=== PATIENT | female | born 1960 | race Caucasian/White ===

== ENCOUNTER 2024-04-05 06:01 | Inpatient (IN) | payer BC, SELFPAY ==
[2024-04-05] VITALS (14 sets, daily range): BP systolic 124–155; BP diastolic 62–93; PULSE 88–113; RESP 14–20; TEMP 36.1–37.1; O2SAT 95–98; BMI 29.2
--- NOTE | ~2024-04-05 | XR_ITS ---
EXAMINATION: XR CHEST CLINICAL INFORMATION: ng tube placement COMPARISON: None available. TECHNIQUE: Frontal view of the chest was obtained. FINDINGS: There is an enteric tube coursing over the expected region of the esophagus. It crosses the diaphragm. The tip is collimated from the [id number]. The heart is normal in size. There is calcific atherosclerotic disease of the aorta. Both lungs are clear. No pleural effusion. No pneumothorax. No acute osseous abnormality. XR/XR chest 1V IMPRESSION: There is an enteric tube coursing over the expected region of the esophagus. It crosses the diaphragm. The tip is collimated from the [id number]-eu-[id number]. No acute cardiopulmonary disease. Electronically signed by: De Peña DO 04/05/2024 02:08 PM SHANA GREGORY
--- NOTE | ~2024-04-05 | CT_ITS ---
EXAMINATION: CT ABDOMEN AND PELVIS WITHOUT CONTRAST CLINICAL INFORMATION: Abdominal pain, vomiting and leukocytosis. COMPARISON: None available. TECHNIQUE: Multidetector volumetric imaging was performed from the superior aspect of the liver through the pubic symphysis. Sagittal and coronal reformatted images were obtained on the technologist's workstation. This CT examination was performed using dose optimization techniques as appropriate, variously including the following: *Automated exposure control *Adjustment of mA and/or kV according to patient size (this includes techniques or standardized protocols for targeted exams where dose is matched to indication/reason for exam; i.e. extremities or head) *Use of iterative reconstruction technique DLP: 560 mGy-cm FINDINGS: Visualized lung bases are well aerated. Partially visualized 4 mm nodule of the right lower lobe (image 1/762, series 4). The liver is normal in size but demonstrates diffusely decreased attenuation. The gallbladder is normal in appearance. The pancreas, spleen and adrenal glands are unremarkable. Symmetrically sized kidneys. No renal calculi or hydronephrosis of either kidney. 7 mm hyperdense focus within the lower pole the left kidney is nonspecific but may represent a hyperdense cyst. There is a 6 mm cyst within the lower pole of the right kidney. Postsurgical changes of the stomach consistent with gastric bypass. Several dilated loops of proximal small bowel are noted within the left upper abdomen measuring up to approximately 5 cm. These loops are fluid-filled. There is associated mild haziness of the adjacent mesentery. Loops of small bowel decompressed in the region of the anastomosis. Distal loops of small bowel are decompressed. There is a normal stool burden throughout the colon. Normal appendix. Normal caliber abdominal aorta. No retroperitoneal lymphadenopathy. Small fat-containing umbilical hernia. The bladder is normal in appearance. The uterus is atrophic. Small amount of free pelvic fluid. No inguinal lymphadenopathy. Moderate diffuse degenerative changes of the spine. CT/CT abdomen pelvis wo IV con IMPRESSION: 1. Proximal small bowel obstruction with transition in the region of the distal anastomosis from gastric bypass. 2. Diffusely decreased liver attenuation suggesting hepatic steatosis. Correlation with liver enzymes recommended. 3. 7 mm hyperdense focus within the lower pole the left kidney is nonspecific but may represent a hyperdense cyst. This can be further evaluated with nonemergent renal ultrasound as clinically indicated. 4. Partially visualized 4 mm nodule of the right lower lobe. According to the UPDATED 2017 Fleischner Society recommendations, the advised follow-up imaging for solid nodules < 6 mm is: LOW RISK PATIENT: No routine follow-up. HIGH RISK PATIENT: Optional CT at 12 months. Electronically signed by: Shad Das MD 04/05/2024 09:23 AM EST
[2024-04-05 06:39] LABS: Basophils Percent Auto 0.2 % (0-2); Eosinophils Percent Auto 0.1 % (0-4); Hematocrit 43.3 % (37.0-47.0); Hemoglobin 14.6 g/dl (12.0-16.0); Imm Gran Abs Auto 0.11 X10*3/uL (0.00-0.03); Imm Gran Pct Auto 0.7 % (0.0-0.4); Lymphocytes Absolute Auto 0.9 X10*3/uL (1.2-4.9); Lymphocytes Percent Auto 6.2 % (20-40); MANUAL DIFF FLAG SCAN; Mean Corpuscular HGB Conc 33.7 g/dl (31.0-35.0); Mean Corpuscular Hemoglobin 28.3 pg (27.0-33.0); Mean Corpuscular Volume 84.1 fL (80.0-98.0); Mean Platelet Volume 8.7 fL (9.4-12.3); Monocytes Absolute Auto 0.3 X10*3/uL (0.1-1.2); Monocytes Percent Auto 2.3 % (2-11); Neutrophils Absolute Auto 13.5 x10*3/uL (2.0-8.3); Neutrophils Percent Auto 90.5 % (45-73); Platelet Count 531 X10*3/uL (160-400); Red Blood Count 5.15 X10*6/uL (4.20-5.50); Red Cell Distribution Width 14.6 % (11.0-16.0); SCAN SMEAR FLAG 1; White Blood Count 14.9 X10*3/uL (4.8-10.8)
[2024-04-05 06:56] LABS: Alanine Aminotransferase 12 U/L (0-31); Albumin Level 4.7 g/dL (3.5-5.0); Alkaline Phosphatase 121 U/L (39-117); Anion Gap 21 (12-20); Aspartate Amino Transferase 20 U/L (5-31); Bilirubin Total 0.8 mg/dL (0.0-1.0); Blood Urea Nitrogen 17 mg/dL (9-16); Calcium 9.8 mg/dL (8.4-10.2); Carbon Dioxide 18 mmol/L (22-29); Chloride 101 mmol/L (96-108); Estimated Glomerular Filt Rate > 60; Glucose Random 173 mg/dL (60-115); Lipase 29 U/L (8-78); Sodium 136 mmol/L (135-145); Total Protein 7.6 g/dL (6.5-8.0)
[2024-04-05 07:04] LABS: SLIDE REVIEW VERIFIED
--- NOTE | 2024-04-05 07:23 | ED_ITS ---
HPI - Abdominal Pain General Chief Complaint: Abdominal Pain Stated Complaint: vomiting Time Seen by Provider: 04/05/24 07:10 Source: patient Mode of arrival: ambulatory Limitations: no limitations History of Present Illness ED Provider: DR. Loja HPI narrative: 64-year-old female presented to the ED for evaluation of abdominal pain and vomiting for 1 day, no other sick contacts, no exposure to bad food, no recent travel, recent use of antibiotic, patient is complaining of diffuse upper abdominal pain with constant vomiting, decreased p.o. intake, patient small bowel night, not passing flatus for 1 day, no dysuria, no frequency urination, no hematuria , vaginal bleed or discharge. Past abdominal surgery significant for gastric bypass 20 years ago, history of . Related Data Allergies Allergy/AdvReac Type Severity Reaction Status Date / Time NSAIDS Allergy Unknown due to Uncoded 04/05/24 06:12 gastric bypass, can't take Review of Systems Review of Systems All other systems are reviewed and are negative Constitutional: Reports as per HPI and Reports no additional constitutional complaints Eyes: Reports as per HPI and Reports no additional eye complaints Reports system reviewed and no additional complaints, except as documented Cardiovascular: Reports as per HPI and Reports no additional cardiovascular complaints Respiratory: Reports as per HPI and Reports no additional respiratory complaints Gastrointestinal: Reports as per HPI and Reports no additional gastrointestinal complaints Genitourinary: Reports no additional female genitourinary complaints Musculoskeletal: Reports no additional musculoskeletal complaints Skin/Breast: Reports system reviewed and no additional complaints, except as docu Psychiatric: Reports no additional psychiatric complaints Endocrine: Reports no additional endocrine complaints Hematologic/Lymphatic: Reports no additional hematologic/lymphatic complaints Allergic/Immunologic: Reports no additional allergic/immunologic complaints Reports system reviewed and no additional complaints, except as documented and Reports Abnormal speech present [facility] Social History Social History Advance Directives: No Do you have a plan to hurt others: No Plan Physical Exam ED Vital Signs: Vital Signs - 24 hr 04/05/24 06:09 04/05/24 08:38 04/05/24 09:29 Temperature 98.2 F 98.7 F Pulse Rate 107 H 99 Respiratory Rate 16 14 18 Blood Pressure 155/93 H 131/72 Pulse Oximetry 98 98 Oxygen Delivery Method Room Air Room Air 04/05/24 11:23 Temperature 98.2 F Pulse Rate 93 Respiratory Rate 16 Blood Pressure 154/83 H Pulse Oximetry 95 Oxygen Delivery Method Room Air BMI result Body Mass Index 29.2 Vital signs have been reviewed and appear to be correct. Blood pressure elevated. Heart rate normal. Respiratory rate normal. Temperature normal. Oxygen saturation normal. Appearance: Alert. Oriented X3. No acute distress. Head: Normal external exam. Normocephalic. Atraumatic. No [place] signs noted. No raccoon eyes noted Eyes: PERRLA. EOMI. Conjunctiva and sclera normal. Eyelids normal. ENT: TM's Normal. Pharynx normal. Uvula midline. Moist mucous membranes. No trismus noted. No drooling noted. No muffled voice noted. Neck: Normal inspection. Neck supple. FROM. No adenopathy. Thyroid Normal. No meningeal signs. No neck mass noted. CVS: Normal heart rate and rhythm. Heart sound normal. No murmurs noted. Pulses normal throughout. Respiratory: No respiratory distress. Painless inspiration. Breath sounds normal. No wheezes/rales/rhonchi noted. Chest nontender. No accessory muscle usage noted or decreased air movement noted. Abdomen: Soft , upper abdominal tenderness, no rebound tenderness, No guarding.Bowel sounds normal in all 4 quadrants. No distention noted. No organomegaly noted. No visible injury noted. Back: No CVA tenderness. Full range of motion noted. Skin: Skin warm and dry. Normal skin color. Normal skin turgor. No rashes/lesions/lacerations noted. Extremities: No lower extremity edema. Extremities exhibit normal range of motion. Extremities nontender. Neuro: Oriented X 3. Cranial nerve exam: II-XII are grossly intact No motor deficit. No sensory deficit. Reflexes normal. Course Reevaluation(s) Reevaluation #1: this is a 64-year-old female s/p gastric bypass 20 years ago laparoscopically presented today with a small-bowel obstruction, abdominal pain, nausea and vomiting. Patient has NG tube placed in the emergency department with suction of gastric contents about 400-600 cc, case discussed with Dr. Hannah who will admit the patient and take the patient for exploratory laparoscopy. Time: 11:44 Medical Decision Making Differential Diagnosis Differential Diagnoses: The differential diagnosis associated with the presentation includes ( gastritis, gastroenteritis, food poisoning, acute appendicitis, colitis, diverticulitis, small-bowel obstruction, electrolyte derangement, dehydration, severe anemia.) Admission/Observation Consideration of admission/observation: Escalation of care including admission/observation considered Consult Healthcare Provider Management of the patient was discussed with: [employer] Education Teacher ( Dr. Hannah) Lab Data MDM Lab Attestation statement: I reviewed the patient's lab results. 04/05/24 06:34 04/05/24 06:34 Labs: Lab Results 04/05/24 04/05/24 04/05/24 Range/Units 06:34 07:56 10:59 WBC 14.9 H (4.8-10.8) X10*3/uL RBC 5.15 (4.20-5.50) X10*6/uL Hgb 14.6 (12.0-16.0) g/dl Hct 43.3 (37.0-47.0) % MCV 84.1 (80.0-98.0) fL MCH 28.3 (27.0-33.0) pg MCHC 33.7 (31.0-35.0) g/dl RDW 14.6 (11.0-16.0) % Plt Count 531 H (160-400) X10*3/uL MPV 8.7 L (9.4-12.3) fL Immature Gran % (Auto) 0.7 H (0.0-0.4) % Neut % (Auto) 90.5 H (45-73) % Lymph % (Auto) 6.2 L (20-40) % [place] % (Auto) 2.3 (2-11) % Eos % (Auto) 0.1 (0-4) % Baso % (Auto) 0.2 (0-2) % Lymph # (Auto) 0.9 L (1.2-4.9) X10*3/uL [place] # (Auto) 0.3 (0.1-1.2) X10*3/uL Eos # (Auto) 0.0 (0.0-0.4) X10*3/uL Baso # (Auto) 0.0 (0.0-0.2) X10*3/uL Abs Immat Gran (auto) 0.11 H (0.00-0.03) X10*3/uL Absolute Neuts (auto) 13.5 H (2.0-8.3) x10*3/uL Absolute Nucleated RBC 0.000 (0.0-0.012) X10*3/uL Nucleated RBC % (auto) 0.0 (0.0-0.2) /100WBC Smear Tech's Comments VERIFIED Sodium 136 (135-145) mmol/L Potassium 4.0 (3.3-5.1) mmol/L Chloride 101 (96-108) mmol/L Carbon Dioxide 18 L (22-29) mmol/L Anion Gap 21 H (12-20) BUN 17 H (9-16) mg/dL Creatinine 0.89 (0.5-1.4) mg/dL Estim Creat Clear Calc 61.0 Estimated GFR > 60 Random Glucose 173 H (60-115) mg/dL Lactic Acid 2.2 H* (0.5-2.0) mmol/L Lactic Acid F/U @ 2Hr 1.5 (0.5-2.0) mmol/L Calcium 9.8 (8.4-10.2) mg/dL Total Bilirubin 0.8 (0.0-1.0) mg/dL AST 20 (5-31) U/L ALT 12 (0-31) U/L Alkaline Phosphatase 121 H (39-117) U/L Total Protein 7.6 (6.5-8.0) g/dL Albumin 4.7 (3.5-5.0) g/dL Lipase 29 (8-78) U/L Independent Interpretation I performed an independent interpretation of an: CT Scan (1. Proximal small bowel obstruction with transition in the region of the distal anastomosis from gastric bypass. 2. Diffusely decreased liver attenuation suggesting hepatic steatosis. Correlation with liver enzymes recommended. 3. 7 mm hyperdense focus within the lower pole the left kidney is ) Radiology Impression Discussion of test interpretation with radiology: I have reviewed the radiologist's reading. Medications Administered Discontinued Medications Generic Name Dose Route Start Last Admin Trade Name Freq PRN Reason Stop Dose Admin Al Hydroxide/Mg Hydroxide 30 ml 04/05/24 07:22 04/05/24 07:40 Magnesium Hydrox/Alum Hydrox 30 Ml Oral.Susp PO 04/05/24 07:23 30 ml ONCE ONE Administration Famotidine 20 mg 04/05/24 07:22 04/05/24 07:40 Famotidine/Pf 20 Mg/2 Ml Vial IVPUSH 04/05/24 07:23 20 mg ONCE ONE Administration Sodium Chloride 1,000 mls @ 999 mls/hr 04/05/24 07:22 04/05/24 10:43 Ns IV 04/05/24 08:22 Infused .Q1H1M ONE Infusion Morphine Sulfate 2 mg 04/05/24 07:22 04/05/24 07:40 Morphine Sulfate 2 Mg/Ml Cartridge IVPUSH 04/05/24 07:23 2 mg ONCE ONE Administration Protocol Morphine Sulfate 2 mg 04/05/24 09:07 04/05/24 09:29 Morphine Sulfate 2 Mg/Ml Cartridge IVPUSH 04/05/24 09:08 2 mg ONCE ONE Administration Protocol Ondansetron HCl 4 mg 04/05/24 07:22 04/05/24 07:40 Ondansetron Hcl 4 Mg/2 Ml Vial IVPUSH 04/05/24 07:23 4 mg ONCE ONE Administration Discharge Plan Discharge Clinical Impression: Small bowel obstruction, Abdominal pain Patient Disposition: Admitted As Inpatient Print Language: Tajik
[2024-04-05] MEDS: ondansetron HCL 4 MG/2 ML VIAL IVPUSH (07:40)
[2024-04-05] MEDS: Famotidine/PF 20 MG/2 ML VIAL IVPUSH (07:40)
[2024-04-05] MEDS: Magnesium Hydrox/Alum Hydrox 30 ML ORAL.SUSP PO (07:40)
[2024-04-05] MEDS: 0.9 % Sodium Chloride 1,000 ML 999 ML IV (07:40)
[2024-04-05] MEDS: Morphine Sulfate 2 MG/ML CARTRIDGE IVPUSH ×2 (07:40→09:29)
[2024-04-05 08:39] LABS: Lactic Acid 2.2 mmol/L (0.5-2.0)
[2024-04-05 10:00] LABS: Reflex Lactate? Lactic Acid Added
--- NOTE | 2024-04-05 10:47 | PC.NURSE ---
patient continues to endorse abdominal pain, 16fr NG tube placed w/ intermittent suction in place. resting quietly in room 20IV left AC, reports some improvement in nausea
[2024-04-05 11:26] LABS: ~Lactic Acid-LAB USE ONLY 1.5 mmol/L (0.5-2.0)
--- NOTE | 2024-04-05 11:44 | PC.NURSE ---
NG tube w/ brown fluids draining approx 100mL. family at bedside, no obvious signs/symptoms of distress noted.
--- NOTE | 2024-04-05 12:39 | P.CONAN_ITS ---
[facility], [facility] Active Problems Active Problems: All Active Problems Abdominal pain (Acute) Small bowel obstruction (Acute) Family History Family history of problems with anesthesia: No Surgical History History of Problems with Anesthesia: No Social History Social History Advance Directives: No Do you have a plan to hurt others: No Plan Meds Allergies Allergy/AdvReac Type Severity Reaction Status Date / Time NSAIDS Allergy Unknown due to Uncoded 04/05/24 06:12 gastric bypass, can't take Home Medications ?Medication ?Instructions ?Recorded ?Confirmed ?Last Taken ?Type albuterol sulfate 90 mcg/actuation 2 puff inhalation Q4-6H PRN dyspnea 04/05/24 04/05/24 Unknown History aerosol inhaler bupropion HCl 200 mg tablet,12 hr 200 mg PO BID 04/05/24 04/05/24 Unknown History sustained-release cevimeline 30 mg capsule 1 cap PO TID 04/05/24 04/05/24 Unknown History citalopram 20 mg tablet 20 mg PO DAILY 04/05/24 04/05/24 Unknown History clonazepam 0.5 mg tablet 0.5 mg PO TID 04/05/24 04/05/24 Unknown History levothyroxine 150 mcg tablet 150 mcg PO MOTUWETHFRSA 04/05/24 04/05/24 Unknown History (Synthroid) levothyroxine 150 mcg tablet 300 mcg PO PEREZ 04/05/24 04/05/24 Unknown History (Synthroid) semaglutide (weight loss) 2.4 2.4 mg subcut MO 04/05/24 04/05/24 03/30/24 History mg/0.75 mL subcutaneous pen injector (Wegovy) tramadol 50 mg tablet 50 mg PO BEDTIME PRN sleep/pain 04/05/24 04/05/24 Unknown History Exam Height,Weight and Vital Signs: Height 5 ft 3 in Weight 74.843 kg Last Vital Signs Temp 98.2 F 04/05/24 11:23 Pulse 93 04/05/24 11:23 Resp 16 04/05/24 11:23 BP 154/83 H 04/05/24 11:23 Pulse Ox 95 04/05/24 11:23 O2 Del Method Room Air 04/05/24 11:23 Pertinent Lab Results Pertinent Lab Results: Laboratory Tests 04/05/24 04/05/24 04/05/24 06:34 07:56 10:59 WBC 14.9 H RBC 5.15 Hgb 14.6 Hct 43.3 MCV 84.1 MCH 28.3 MCHC 33.7 RDW 14.6 Plt Count 531 H MPV 8.7 L Immature Gran % (Auto) 0.7 H Neut % (Auto) 90.5 H Lymph % (Auto) 6.2 L Chambers % (Auto) 2.3 Eos % (Auto) 0.1 Baso % (Auto) 0.2 Lymph # (Auto) 0.9 L [place] # (Auto) 0.3 Eos # (Auto) 0.0 Baso # (Auto) 0.0 Abs Immat Gran (auto) 0.11 H Absolute Neuts (auto) 13.5 H Absolute Nucleated RBC 0.000 Nucleated RBC % (auto) 0.0 Smear Tech's Comments VERIFIED Sodium 136 Potassium 4.0 Chloride 101 Carbon Dioxide 18 L Anion Gap 21 H BUN 17 H Creatinine 0.89 Estim Creat Clear Calc 61.0 Estimated GFR > 60 Random Glucose 173 H Lactic Acid 2.2 H* Lactic Acid F/U @ 2Hr 1.5 Calcium 9.8 Total Bilirubin 0.8 AST 20 ALT 12 Alkaline Phosphatase 121 H Total Protein 7.6 Albumin 4.7 Lipase 29 Airway Mallampati Class: II TM Dist: >3cm Neck ROM: Full Assessment and Plan Assessment Anesthesia Assessment: Anesthesia Plan Discussed and Chart Reviewed Final Anesthetic Review Family History of Problems with Anesthesia: No History of Problems with Anesthesia: No NPO: Yes ASA Class: III and Emergency Final Preanesthetic Review: No Changes in Pt Med Stat, Meds/Allgs Chart Reviewed, Consent Obtained/Reviewed and Anes Risks/Benef Reviewed Patient Risk: Intermediate Procedure Risk: Intermediate Anesthetic Plan Anesthetic Plan: GA Disposition: Standard PACU
--- NOTE | 2024-04-05 12:44 | PM.HPGS ---
History of Present Illness History of Present Illness Date of Service: 04/05/24 Chief complaint: Small bowel obstruction Narrative: Sonia Myles is a 64 year old female who presented in the ER with a 30-hour onset of vomiting and mid-epigastric/LUQ abdominal pain. The patient has a history of laparoscopic Cat-en-Y gastric bypass about [address] Kelley at [facility]. The symptoms began after a meal with lasagna. She vomited initially the food and since then she is dry heaving and spitting small amounts of bilious material. Never had similar symptoms in the past. Has been on Wegovy last few months and she claims she lost 30 lbs. Review of Systems Constitutional: Constitutional: Reports weight loss (on Wegovy) Eyes: Eyes: Reports no additional eye complaints ENT: Reports Normal hearing present Cardiovascular: Cardiovascular: Reports no additional cardiovascular complaints Respiratory: Respiratory: Reports no additional respiratory complaints Gastrointestinal: Gastrointestinal: Reports abdominal pain (mid-epigastric), Reports change in bowel habits, Reports nausea and Reports vomiting Genitourinary: Genitourinary: Reports no additional female genitourinary complaints Musculoskeletal: Musculoskeletal: Reports no additional musculoskeletal complaints Neurologic: Reports system reviewed and no additional complaints, except as documented and Reports Normal hearing present Psychiatric: Psychiatric: Reports no additional psychiatric complaints Endocrine: Endocrine: Reports no additional endocrine complaints Hematologic/Lymphatic: Hematologic/Lymphatic: Reports no additional hematologic/lymphatic complaints Allergic/Immunologic: Allergic/Immunologic: Reports no additional allergic/immunologic complaints PMFSH Past Medical History Medical History (Updated 04/05/24 @ 12:49 by Tevin Hannah MD) DJD (degenerative joint disease) Anxiety Depression Surgical History Surgical History (Updated 04/05/24 @ 12:49 by Tevin Hannah MD) History of knee replacement History of History of gastric bypass Social History Social History Advance Directives: No Do you have a plan to hurt others: No Plan Meds Allergies Allergy/AdvReac Type Severity Reaction Status Date / Time NSAIDS Allergy Unknown due to Uncoded 04/05/24 06:12 gastric bypass, can't take Active Medications: Current Medications Fentanyl (Fentanyl Citrate/Pf 100 Mcg/2 Ml Vial) 50 mcg IVPUSH Q5M PRN PRN Reason: Pain, Moderate to Severe (Pain Scale 4-10) Stop: 04/05/24 18:40 Naloxone HCl (Naloxone Hcl 0.4 Mg/Ml Vial) 0.04 mg IVPUSH Q5M PRN PRN Reason: Excessive sedation or RR < 8 Ondansetron HCl (Ondansetron Hcl 4 Mg/2 Ml Vial) 4 mg IVPUSH ONCE PRN PRN Reason: Nausea and Vomiting Stop: 04/05/24 18:40 Home Medications ?Medication ?Instructions ?Recorded ?Confirmed ?Last Taken ?Type albuterol sulfate 90 mcg/actuation 2 puff inhalation Q4-6H PRN dyspnea 04/05/24 04/05/24 Unknown History aerosol inhaler bupropion HCl 200 mg tablet,12 hr 200 mg PO BID 04/05/24 04/05/24 Unknown History sustained-release cevimeline 30 mg capsule 1 cap PO TID 04/05/24 04/05/24 Unknown History citalopram 20 mg tablet 20 mg PO DAILY 04/05/24 04/05/24 Unknown History clonazepam 0.5 mg tablet 0.5 mg PO DAILY PRN Anxiety 04/05/24 04/05/24 Unknown History levothyroxine 150 mcg tablet 150 mcg PO MOTUWETHFRSA 04/05/24 04/05/24 Unknown History (Synthroid) levothyroxine 150 mcg tablet 300 mcg PO PEREZ 04/05/24 04/05/24 Unknown History (Synthroid) semaglutide (weight loss) 2.4 2.4 mg subcut MO 04/05/24 03/30/24 History mg/0.75 mL subcutaneous pen injector (Wegovy) tramadol 50 mg tablet 50 mg PO BEDTIME PRN sleep/pain 04/05/24 04/05/24 Unknown History Physical Exam Vital Signs: Vital Signs: Last Vital Signs Temp 98.2 F 04/05/24 11:23 Pulse 93 04/05/24 11:23 Resp 16 04/05/24 11:23 BP 154/83 H 04/05/24 11:23 Pulse Ox 95 04/05/24 11:23 O2 Del Method Room Air 04/05/24 11:23 BMI result Body Mass Index 29.2 GI: Inspection: Yes normal to inspection, Yes incision (well healed) and Yes obesity Palpation (GI): Soft to palpation and Tenderness to palpation present (GI) (mid-epigastric and LUQ tenderness) in the epigastrum and in the LUQ Percussion: Yes normal to percussion Rectal Exam - Female: deferred Neuro: Cranial nerves: Yes Normal hearing present Extrem: Right lower extremity: normal to inspection (knee surgery) Left lower extremity: normal to inspection (knee surgery) Results Results Labs: Short CBC 04/05/24 Range/Units 06:34 WBC 14.9 H (4.8-10.8) X10*3/uL Hgb 14.6 (12.0-16.0) g/dl Hct 43.3 (37.0-47.0) % Plt Count 531 H (160-400) X10*3/uL BMP 04/05/24 06:34 Sodium 136 Potassium 4.0 Chloride 101 Carbon Dioxide 18 L BUN 17 H Creatinine 0.89 Calcium 9.8 Liver Function 04/05/24 Range/Units 06:34 Total Bilirubin 0.8 (0.0-1.0) mg/dL AST 20 (5-31) U/L ALT 12 (0-31) U/L Alkaline Phosphatase 121 H (39-117) U/L Albumin 4.7 (3.5-5.0) g/dL CT scan - pelvis: report reviewed and image reviewed (SBO at the jejuno-jejunostomy) Assessment and Plan (1) Small bowel obstruction: Status: Acute Plan CT scan is suggestive of a small bowel obstruction near the JJ anastomosis. The possibility of internal hernia, adhesions or intussusception needs to be ruled out to avoid possible bowel ischemia and necrosis. Risks of , bleeding, infection, recurrent bowel obstructions and blood clots were discussed with the patient. The patient understands and is in agreement with the plan. Total time managing care of this patient today: 45 minutes. Quality Stroke Does the patient have a stroke diagnosis?: No VTE Prior VTE?: No VTE Risk Level:: Surgical - moderate VTE Device Contraindication: N/A - Device Ordered VTE Drug Contraindication: Treatment Not Indicated Procedures Date of Service Date of Service: 04/05/24
--- NOTE | 2024-04-05 12:55 | P.BOP_ITS ---
Brief Operative Note Date of Service: 04/05/24 Pre-op diagnosis: Small bowel obstruction Post-op diagnosis: same (Internal small bowel volvulus, Necrotic small bowel, small bowel perforation, small bowel obstruction) Procedure: INDICATION: The patient is a 64 year old female who presented in the ER with a 30-hour onset of vomiting and mid-epigastric/LUQ abdominal pain. The patient has a history of laparoscopic Cat-en-Y gastric bypass about [address] Kelley at [facility]. The symptoms began after a meal with lasagna. She vomited initially the food and since then she is dry heaving and spitting small amounts of bilious material. Never had similar symptoms in the past. Has been on Wegovy last few months and she claims she lost [address] scan is suggestive of a small bowel obstruction near the JJ anastomosis. The possibility of internal hernia, adhesions or intussusception needs to be ruled out to avoid possible bowel ischemia and necrosis. Risks of , bleeding, infection, recurrent bowel obstructions and blood clots were discussed with the patient. The patient understands and is in agreement with the plan. PROCEDURE: Diagnostic laparoscopy, exploratory laparotomy, intraoperative endoscopy, repair of small bowel perforation, lysis of adhesions, release of internal volvulus, small bowel resection and creation of 2 small bowel anastomoses, endoscopic-assisted NG tube re-positioning DESCRIPTION OF PROCEDURE: After informed consent was obtained from the patient, the patient was given preoperative antibiotics, and was transferred to the operating room. After successful induction of general anesthesia, a benavidez catheter and pneumatic compression devices were placed on both lower extremities. The patient was then prepped and draped in the usual sterile manner, and abdominal access was established to the left of the umbilicus in order to be able to incorporate it in a midline incision in case we would have to convert to an open surgery. A 12 mm blunt port was inserted, and the abdomen was insufflated with CO2 to a pressure of 15 mmHg. The abdomen was inspected. It was evident that there a long segment of small intestine that was extremely distended as well as hemorrhagic and necrotic. At that point, the abdomen was deflated and a midline incision was made from about 5cm distal to the xyphoid process to 3cm inferior to the umbilicus. A large amount of hemorrhagic fluid was evacuated. Once the necrotic-appearing small bowel segment was delivered, it appeard to be involve a significant portion of the Cat limb from about 20cm distally to the GJ anastomosis all the way to the JJ anastomosis. There was a 1cm bowel perforation to the Cat limb just proximal to the necrotic segment. The Cat limb proximal to the perforation appeared viable externally. In order to preserve as much Cat limb length as possible the perforation was closed with 3 interrupted 3.0 Silk sutures along the long axis of the intestine to prevent stricture. Prior to that the suction was used to decompress the necrotic segment of the Cat limb. Attention was then drawn to the necrotic segment. There was a single adhesive band originating from the transverse colon to the anastomosis creating an int ernal space around which the Cat limb had volvulized. The adhesive band was cut with the cautery. That allowed me to release the small bowel and put it in the normal position. This allowed me to confirm the anatomy: The biliopancreatic limb was traced back to the ligament of Treitz and it was about 50cm long. This was marked with 3.0 Silk suture. The common channel was traced back to the ileocecal valve. It was normal and viable without any pathology or adhesions. This was measured and it was approxiately 300cm long. At that point the Cat limb was clamped at the most proximal part of the n ecrotic Cat limb and endoscopy was performed to assess the GJ anastomosis and the most proximal Cat limb. There was some retained food pieces in the pouch which appeared viable. The endoscope was advanced to the proximal Cat limb. The scope was advanced all the way to the bowel clamp fairly easily. The mucosa was somewhat congested but it was viable. A leak test was performed to test the repair of the small bowel perforation by submerging it under saline and no air leak was noted. The bowel clamp was released and the endoscope was advanced all the way to the JJ anastomosis. Unfortunately the mucosa of the entire segment was necrotic and therefore it had to be resected. The scope was withdrawn to the esophagus. The Cat limb was resected with an Endo PAULA 60 white load, 2 cm proximally from the beginning of the necrotic segment and the area where the bowel perforation was repair, was preserved as there was very limited length of proximal Cat limb left to use for the anastomosis and it was also quite fixed without ability ot be mobilized. The biliopancreatic limb was divided just proximally from the JJ anastomosis preserving as much length as possible and the common channel was a lso divided just distally from the JJ anastomosis with two Endo PAULA 60 white loads. The small bowel mesenteric segment was divided with several Endo PAULA 45 woody loads as close to the bowel wall as possible to preserve the mesentery and prevent ischemia to the proxima Cat limb. Once the small bowel resection was completed an end-to-end anastomosis was made between the proximal Cat limb and the common channel. After enterotomies were made the anastomosis was created with an Endo PAULA 60 white load and the enterotomy was closed with another Endo PAULA 60 white load after appropriate alignment with three interrupted 3.0 Silk sutures. The small bowel mesenteric defect was closed with several interrupted 3.0 Silk sutures. The anastomosis was viable and patent. The new jejuno-jejunostomy was created about 120cm from the GJ anastomosis and a new Cat limb was created. This was a side-to-end anastomosis that was also created with an Endo PAULA 60 white load and the enterotomy was closed with an other Endo PAULA 60 white load after appropriate alignment with four interrupted 3.0 Silk sutures. The small bowel mesenteric defect was closed with several interrupted 3.0 Silk sutures. The anastomosis was viable and patent. The Cat limb was then clamped distally from the proximal new anastomosis and another endoscopy was performed. The proximal Cat limb appeared viable and I was able to pass the anastomosis easily and there was no narrowing. At that point I grasped the tip of the NG tube with an endoscopic forceps and it was guided beyong the GJ anastomosis all the way distally to the proximal small bowel anastomosis and it was secured there. Then after all fluid and air were suctioned and the stomach was fully decompressed, the scope was withdrawn and secured in the mid esophagus. At that point both anastomoses were viable and they were situating well. The abdomen was washed with warm saline and all fluid was suctioned out. The fascia was closed with several interrupted (at the corners of the incision and near the umbilicus) and [id number] sutures for the middle segment of the incision using #1 Ethibond sutures. Then 30cc Ropivacaine plain with 10 mg of Dexamethasone were used to infiltrate the fascial closure as well as all skin incisions. The skin was closed with kori. The patient was extubated and was transferred in stable condition to the recovery room for further care. I was present and performed all turner parts of the procedure. There were no one to assist with this case and the [employer] Shearing Machine Operator was the travel assistant. Mynor Hannah MD, PhD, FACS Surgeon: Tevin Hannah MD Anesthesia: GETA, local and other (TAP block) Was an Stenotype Machine Operator used for this Procedure?: No Estimated blood loss (mL): 10 IV fluids (mL): 3,000 Urine output (mL): 50 Pathology: other (Small bowel (Cat limb)) Condition: stable Disposition: PACU
--- NOTE | 2024-04-05 13:00 | PC.NURSE ---
Reports given to [facility], pt transported to OR with belongings.
--- NOTE | 2024-04-05 13:01 | P.PNGS_ITS ---
Subjective Subjective Date of Service: 04/06/24 Interval history: Feels well. Mild incisional pain. The pain she had prior to surgery has resolved. Physical Exam 2 Vital Signs: Vital Signs: Last Vital Signs Temp 98.2 F 04/05/24 11:23 Pulse 93 04/05/24 11:23 Resp 16 04/05/24 11:23 BP 154/83 H 04/05/24 11:23 Pulse Ox 95 04/05/24 11:23 O2 Del Method Room Air 04/05/24 11:23 BMI result Body Mass Index 29.2 GI: Inspection: Yes normal to inspection, Yes incision (clean, dry and intact) and Yes obesity Palpation (GI): Soft to palpation Extrem: Right lower extremity: normal to inspection (no calf tenderness) L eft lower extremity: normal to inspection (no calf tenderness) Objective Data Active Medications Fentanyl (Fentanyl Citrate/Pf 100 Mcg/2 Ml Vial) 50 mcg IVPUSH Q5M PRN PRN Reason: Pain, Moderate to Severe (Pain Scale 4-10) Stop: 04/05/24 18:40 Cefazolin Sodium/Dextrose (Ancef) 2 gm in 50 mls @ 100 mls/hr IV PREOP ONE Stop: 04/05/24 13:11 Naloxone HCl (Naloxone Hcl 0.4 Mg/Ml Vial) 0.04 mg IVPUSH Q5M PRN PRN Reason: Excessive sedation or RR < 8 Ondansetron HCl (Ondansetron Hcl 4 Mg/2 Ml Vial) 4 mg IVPUSH ONCE PRN PRN Reason: Nausea and Vomiting Stop: 04/05/24 18:40 Labs 04/06/24 05:01 04/06/24 05:01 Labs: Laboratory Results - last 24 hr 04/05/24 04/05/24 04/05/24 06:34 07:56 10:59 MCV 84.1 MCH 28.3 MCHC 33.7 RDW 14.6 Plt Count 531 H MPV 8.7 L Immature Gran % (Auto) 0.7 H Neut % (Auto) 90.5 H Lymph % (Auto) 6.2 L [place] % (Auto) 2.3 Eos % (Auto) 0.1 Baso % (Auto) 0.2 Lymph # (Auto) 0.9 L [place] # (Auto) 0.3 Eos # (Auto) 0.0 Baso # (Auto) 0.0 Abs Immat Gran (auto) 0.11 H Absolute Neuts (auto) 13.5 H Absolute Nucleated RBC 0.000 Nucleated RBC % (auto) 0.0 Smear Tech's Comments VERIFIED Anion Gap 21 H Estim Creat Clear Calc 61.0 Estimated GFR > 60 Random Glucose 173 H Lactic Acid 2.2 H* Lactic Acid F/U @ 2Hr 1.5 Calcium 9.8 Total Bilirubin 0.8 AST 20 ALT 12 Alkaline Phosphatase 121 H Total Protein 7.6 Albumin 4.7 Lipase 29 Procedures Date of Service Date of Service: 04/06/24 Progress Note: A&P Assessment and plan (1) Small bowel obstruction: Status: Acute (2) Small bowel volvulus: Status: Acute (3) Small bowel perforation: Status: Acute (4) 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: Status: Acute Assessment and Plan: 1. Continue NPO, NGT and IV fluids 2. Ambulation 3. Aggressive incentive spirometry 4. Repeat lactate level at 2pm today Time Spent With Patient Time: Total time managing care of this patient today ____ minutes. Quality Stroke Does the patient have a stroke diagnosis?: No VTE Prior VTE?: No VTE Risk Level:: Surgical - moderate VTE Device Contraindication: N/A - Device Ordered VTE Drug Contraindication: Treatment Not Indicated
[2024-04-05 16:35] LABS: Hematocrit 41.8 % (37.0-47.0); Hemoglobin 13.3 g/dl (12.0-16.0)
[2024-04-05] MEDS: Aprepitant 32 MG/4.4 ML VIAL IVPUSH (16:49)
[2024-04-05] MEDS: Pantoprazole Sodium 40 MG/10 ML VIAL IVPUSH (16:51)
[2024-04-05 17:04] LABS: Anion Gap 12 (12-20); Blood Urea Nitrogen 18 mg/dL (9-16); Calcium 7.6 mg/dL (8.4-10.2); Carbon Dioxide 22 mmol/L (22-29); Chloride 104 mmol/L (96-108); Creatinine Clr Calc Pharmacy 66.2; Estimated Glomerular Filt Rate > 60; Glucose Random 161 mg/dL (60-115); Magnesium 1.8 mg/dL (1.6-2.6); Phosphorus 5.9 mg/dL (2.7-4.5); Potassium 4.4 mmol/L (3.3-5.1); Sodium 134 mmol/L (135-145)
[2024-04-05 17:13] LABS: Lactic Acid 1.9 mmol/L (0.5-2.0)
--- NOTE | 2024-04-05 17:15 | PHA.MEDREC ---
Addendum entered by Jemal Martin RPh 04/05/24 17:35: Med rec was reviewed. Original Note: Pharmacy Consult ? Medication Reconciliation Pharmacy has completed the medication reconciliation. Spoke with patient to confirm medications. She is no longer taking eliquis (last had a week ago), celebrex, diazepam, gabapentin, naproxen, zofran, oxycodone, or pantorpazole. She confirmed her dosing for Synthroid (an extra tab on Saturday). She reports her current dose for Wegovy is 1.7 mg on , she had it last Saturday. She only takes one tab of her citalopram daily (not and 05/14). She only takes 1 tab of clonazepam prn and same with trazodone for sleep/pain. She has not taken any medications today or yesterday.
[2024-04-05] MEDS: Acetaminophen 1,000 MG/100 ML PIGGYBACK 16.7 MG IV (17:57)
[2024-04-05] MEDS: Levothyroxine Sodium 100 MCG/5 ML VIAL 75 MCG IVPUSH (17:57)
[2024-04-05] MEDS: Lactated Ringers 1,000 ML 175 ML IVCONT (17:57)
[2024-04-05 19:21] LABS: Lactate Dehydrogenase 179 U/L (122-220)
[2024-04-05] MEDS: HYDROmorphone HCl 0.5 MG/0.5 ML SYRINGE 0.25 MG IVPUSH (21:52)
[2024-04-05 22:08] LABS: Appearance Urine Clear; Color Urine Yellow; Glucose Urine UA Negative (Negative); Leukocyte Esterase Urine Negative (Negative); Nitrite Urine Negative (Negative); PH 5.5 (5.0-9.0); Specific Gravity - Urine >= 1.030 (1.005-1.025); UMIC TRIGGER UACC YES; Urine Blood Trace (Negative); Urine Ketones Negative (Negative); Urine Protein Trace mg/dL (Neg-Trace)
[2024-04-05 22:12] LABS: Bacteria Urine None Seen (None Seen); Hyaline Casts Urine 0-2 /LPF (0-2); Squamous Epithelial Cell Urine 0-2 /HPF (0-2); WBC Urine 0-5 /HPF (0-5)
[2024-04-05 22:57] LABS: Lactic Acid 1.4 mmol/L (0.5-2.0)
[2024-04-06] VITALS (13 sets, daily range): BP systolic 100–124; BP diastolic 55–65; PULSE 75–90; RESP 15–18; TEMP 36.1–36.7; O2SAT 93–100
[2024-04-06] MEDS: Acetaminophen 1,000 MG/100 ML PIGGYBACK 16.7 MG IV ×4 (00:07→17:56)
[2024-04-06] MEDS: 0.9 % Sodium Chloride Flush 3 ML SYRINGE IVFLUSH (00:11)
[2024-04-06] MEDS: ondansetron HCL 4 MG/2 ML VIAL IVPUSH ×3 (00:11→16:44)
[2024-04-06] MEDS: Lactated Ringers 1,000 ML 175 ML IVCONT ×4 (01:30→21:03)
[2024-04-06] MEDS: Piperacillin Sodium/Tazobactam 3.375 GM in 0.9 % Sodium Chloride 50 ML IV ×4 (02:05→19:33)
--- NOTE | 2024-04-06 04:24 | PC.NURSE ---
2099- 04-05-24, tiger text note sent to surgeon as per RN shift report that he wanted information on patient at that time, urine output, vital signs, labwork,etc... therefore, forwarded to Brielle Yip. Urine from benavidez at this time, 175ml, O2 sat level 96% on 2 liters N/C 97.4-88-20-137/62, cardiac rhythm SR, Incentive spirometer up to 1250, lactic value of 1.9, IVf, IV APAP, IVABX all as ordered. pain managed well, no N/v. NGT with just a scant amount blood tinged drainage to tubing. acknowledged to have read text. Will continue to monitor patient. Abdominal dressing with a small dry stain, no active drng.
[2024-04-06 05:32] LABS: MANUAL DIFF FLAG NO
[2024-04-06 05:37] LABS: Basophils Percent Auto 0.2 % (0-2); Hematocrit 35.7 % (37.0-47.0); Hemoglobin 11.8 g/dl (12.0-16.0); Imm Gran Abs Auto 0.06 X10*3/uL (0.00-0.03); Imm Gran Pct Auto 0.4 % (0.0-0.4); Lymphocytes Absolute Auto 0.7 X10*3/uL (1.2-4.9); Lymphocytes Percent Auto 3.9 % (20-40); Mean Corpuscular HGB Conc 33.1 g/dl (31.0-35.0); Mean Corpuscular Hemoglobin 28.4 pg (27.0-33.0); Mean Corpuscular Volume 85.8 fL (80.0-98.0); Monocytes Absolute Auto 1.5 X10*3/uL (0.1-1.2); Monocytes Percent Auto 8.7 % (2-11); Neutrophils Absolute Auto 14.8 x10*3/uL (2.0-8.3); Neutrophils Percent Auto 86.8 % (45-73); Platelet Count 397 X10*3/uL (160-400); Red Blood Count 4.16 X10*6/uL (4.20-5.50); Red Cell Distribution Width 14.9 % (11.0-16.0)
[2024-04-06 05:47] LABS: Lactic Acid 1.9 mmol/L (0.5-2.0)
[2024-04-06] MEDS: Levothyroxine Sodium 100 MCG/5 ML VIAL 75 MCG IVPUSH (05:51)
[2024-04-06] MEDS: Pantoprazole Sodium 40 MG/10 ML VIAL IVPUSH ×2 (05:51→16:44)
[2024-04-06 05:52] LABS: Anion Gap 16 (12-20); Blood Urea Nitrogen 15 mg/dL (9-16); Calcium 8.3 mg/dL (8.4-10.2); Carbon Dioxide 22 mmol/L (22-29); Chloride 103 mmol/L (96-108); Creatinine Clr Calc Pharmacy 77.6; Estimated Glomerular Filt Rate > 60; Glucose Random 149 mg/dL (60-115); Phosphorus 4.4 mg/dL (2.7-4.5); Potassium 4.5 mmol/L (3.3-5.1); Sodium 136 mmol/L (135-145)
[2024-04-06] MEDS: HYDROmorphone HCl 0.5 MG/0.5 ML SYRINGE 0.25 MG IVPUSH ×3 (05:52→13:24)
--- NOTE | 2024-04-06 09:12 | HO.POSTANES ---
Post Anesthesia Evaluation Post Anesthesia Evaluation Date of Service: 04/06/24 Vital Signs: Vital Signs Temp Pulse Resp BP Pulse Ox O2 Del Method O2 Flow Rate 04/06/24 07:58 96.9 F 79 18 117/62 97 Nasal Cannula 2.0 04/06/24 06:28 18 04/06/24 06:22 18 04/06/24 06:15 97.3 F 90 18 123/60 94 Nasal Cannula 2 04/06/24 03:26 18 04/06/24 03:22 97.7 F 75 18 124/65 93 Room Air 04/06/24 00:37 18 04/06/24 00:00 97.3 F 90 18 123/60 94 Room Air 04/05/24 21:52 18 Anesthesia: General Mental Status: Awake Pain Control: Satisfactory Nausea/Vomiting: None Hydration: Adequate Anesthesia-Related Issues: No Anes. Related Issues
--- NOTE | 2024-04-06 09:30 | MHC.CM.PN ---
pt maru with and daughter ,she is independent and working she will not need servies when dcd dc plan home no services
[2024-04-06 13:06] LABS: Lactic Acid 1.3 mmol/L (0.5-2.0)
[2024-04-07] VITALS (8 sets, daily range): BP systolic 100–111; BP diastolic 51–58; PULSE 77–85; RESP 16–20; TEMP 36.1–36.9; O2SAT 91–98
[2024-04-07] MEDS: ondansetron HCL 4 MG/2 ML VIAL IVPUSH ×4 (00:05→23:04)
[2024-04-07] MEDS: 0.9 % Sodium Chloride Flush 3 ML SYRINGE IVFLUSH ×3 (00:08→23:10)
[2024-04-07] MEDS: Acetaminophen 1,000 MG/100 ML PIGGYBACK 16.7 MG IV ×4 (00:42→23:02)
[2024-04-07] MEDS: Piperacillin Sodium/Tazobactam 3.375 GM in 0.9 % Sodium Chloride 50 ML IV ×4 (02:24→19:45)
[2024-04-07] MEDS: Lactated Ringers 1,000 ML 175 ML IVCONT ×4 (02:58→21:45)
[2024-04-07 05:12] LABS: Basophils Percent Auto 0.4 % (0-2); Eosinophils Percent Auto 0.4 % (0-4); Hematocrit 28.1 % (37.0-47.0); Hemoglobin 9.2 g/dl (12.0-16.0); Imm Gran Abs Auto 0.03 X10*3/uL (0.00-0.03); Imm Gran Pct Auto 0.3 % (0.0-0.4); MANUAL DIFF FLAG NO; Mean Corpuscular HGB Conc 32.7 g/dl (31.0-35.0); Mean Corpuscular Hemoglobin 28.9 pg (27.0-33.0); Mean Corpuscular Volume 88.4 fL (80.0-98.0); Monocytes Absolute Auto 0.8 X10*3/uL (0.1-1.2); Monocytes Percent Auto 8.9 % (2-11); Neutrophils Absolute Auto 7.1 x10*3/uL (2.0-8.3); Platelet Count 305 X10*3/uL (160-400); Red Blood Count 3.18 X10*6/uL (4.20-5.50); Red Cell Distribution Width 15.3 % (11.0-16.0)
[2024-04-07 05:24] LABS: Lactic Acid 0.7 mmol/L (0.5-2.0)
[2024-04-07 05:36] LABS: Alanine Aminotransferase < 6 U/L (0-31); Albumin Level 2.8 g/dL (3.5-5.0); Alkaline Phosphatase 51 U/L (39-117); Anion Gap 10 (12-20); Aspartate Amino Transferase 14 U/L (5-31); Bilirubin Total 0.5 mg/dL (0.0-1.0); Blood Urea Nitrogen 11 mg/dL (9-16); C Reactive Protein 29.11 mg/dL (< or = 0.50); Calcium 8.1 mg/dL (8.4-10.2); Carbon Dioxide 28 mmol/L (22-29); Chloride 104 mmol/L (96-108); Creatinine Clr Calc Pharmacy 84.8; Estimated Glomerular Filt Rate > 60; Glucose Random 93 mg/dL (60-115); Potassium 3.8 mmol/L (3.3-5.1); Sodium 138 mmol/L (135-145); Total Protein 4.8 g/dL (6.5-8.0)
[2024-04-07] MEDS: Levothyroxine Sodium 100 MCG/5 ML VIAL 75 MCG IVPUSH (06:09)
[2024-04-07] MEDS: Pantoprazole Sodium 40 MG/10 ML VIAL IVPUSH ×2 (06:09→15:29)
--- NOTE | 2024-04-07 11:59 | P.PNGS_ITS ---
Subjective Subjective Date of Service: 04/07/24 Interval history: Feels better today. Incisional pain has improved. No NGT output. Ambulating often and using the incentive spirometer up to 2000ml on an hourly basis. Physical Exam 2 Vital Signs: Vital Signs: Last Vital Signs Temp 97.0 F 04/07/24 07:28 Pulse 85 04/07/24 07:28 Resp 18 04/07/24 07:28 BP 111/58 L 04/07/24 07:28 Pulse Ox 98 04/07/24 11:42 O2 Del Method Room Air 04/07/24 11:42 O2 Flow Rate 2 04/07/24 03:04 Oxygen Flow Rate 2.0 04/06/24 12:40 BMI result Body Mass Index 29.2 GI: Inspection: Yes normal to inspection, Yes incision (clean, dry and intact) and Yes obesity Palpation (GI): Soft to palpation Extrem: Right lower extremity: normal to inspection (no calf tenderness) L eft lower extremity: normal to inspection (no calf tenderness) Objective Data Active Medications Albuterol Sulfate (Albuterol Sulfate 90 Mcg 8 Gm Inhaler) 2 puff INHALE RQ6H PRN PRN Reason: Wheezing Hydromorphone HCl (Hydromorphone Hcl 0.5 Mg/0.5 Ml Syringe) 0.25 mg IVPUSH Q4H PRN; Protocol PRN Reason: Pain, Severe (Pain Scale 7-10) Last Admin: 04/06/24 13:24 Dose: 0.25 mg Documented By: UCHE Comments: telephone order from provider ok to give early Lactated Ringer's (Lr) 1,000 mls @ 175 mls/hr IVCONT .Q5H43M [facility] Last Admin: 04/07/24 09:47 Dose: 175 mls/hr Documented By: ANTHONY Acetaminophen (Ofirmev) 1,000 mg in 100 mls @ 16.7 mls/hr IV .Q6H [facility] Last Admin: 04/07/24 11:19 Dose: Not Given Documented By: ANTHONY Non-Admin Reason: IV Running Piperacillin Sod/Tazobactam (Sod 3.375 gm/ Sodium Chloride) 50 mls @ 100 mls/hr IV Q6H [facility] Last Infusion: 04/07/24 09:07 Dose: Infused Documented By: ANTHONY Levothyroxine Sodium (Levothyroxine Sodium 100 Mcg/5 Ml Vial) 75 mcg IVPUSH DAILY@0630 [facility] Last Admin: 04/07/24 06:09 Dose: 75 mcg Documented By: AYDEE Lorazepam (Lorazepam 2 Mg/Ml Vial) 0.25 mg IVPUSH Q8H PRN PRN Reason: Anxiety Metoclopramide HCl (Metoclopramide Hcl 10 Mg/2 Ml Vial) 10 mg IVPUSH Q6H PRN PRN Reason: Nausea Naloxone HCl (Naloxone Hcl 0.4 Mg/Ml Vial) 0.04 mg IVPUSH Q5M PRN PRN Reason: Excessive sedation or RR < 8 Ondansetron HCl (Ondansetron Hcl 4 Mg/2 Ml Vial) 4 mg IVPUSH Q8H [facility] Last Admin: 04/07/24 07:47 Dose: 4 mg Documented By: ANTHONY Pantoprazole Sodium (Pantoprazole Sodium 40 Mg/10 Ml Vial) 40 mg IVPUSH BID@0630,1630 [facility] Last Admin: 04/07/24 06:09 Dose: 40 mg Documented By: AYDEE Sodium Chloride (0.9 % Sodium Chloride Flush 3 Ml Syringe) 3 ml IVFLUSH QSHIFT [facility] Last Admin: 04/07/24 07:48 Dose: 3 ml Documented By: ANTHONY Labs 04/07/24 05:05 04/07/24 05:05 Labs: Laboratory Results - last 24 hr 04/06/24 04/07/24 12:46 05:05 MCV 88.4 MCH 28.9 MCHC 32.7 RDW 15.3 Plt Count 305 MPV 9.0 L Immature Gran % (Auto) 0.3 Neut % (Auto) 79.0 H Lymph % (Auto) 11.0 L [place] % (Auto) 8.9 Eos % (Auto) 0.4 Baso % (Auto) 0.4 Lymph # (Auto) 1.0 L [place] # (Auto) 0.8 Eos # (Auto) 0.0 Baso # (Auto) 0.0 Abs Immat Gran (auto) 0.03 Absolute Neuts (auto) 7.1 Absolute Nucleated RBC 0.000 Nucleated RBC % (auto) 0.0 Anion Gap 10 L Estim Creat Clear Calc 84.8 Estimated GFR > 60 Random Glucose 93 Lactic Acid 1.3 0.7 Calcium 8.1 L Total Bilirubin 0.5 AST 14 ALT < 6 Alkaline Phosphatase 51 C-Reactive Protein 29.11 H Total Protein 4.8 L Albumin 2.8 L Microbiology Microbiology Results: Microbiology 04/05/24 07:56 Blood Culture - Preliminary Blood - Venous No growth after 48 hours. 04/05/24 07:56 Blood Culture - Preliminary Blood - Venous No growth after 48 hours. Procedures Date of Service Date of Service: 04/07/24 Progress Note: A&P Assessment and plan (1) 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: Status: Acute Assessment and Plan: D/C NGT Continue NPO, IV fluids and [place] Ambulate and incentive spirometer hourly Discussed plan with the patient and her and they are in agreement Time Spent With Patient Time: Total time managing care of this patient today _20_ minutes. Quality Stroke Does the patient have a stroke diagnosis?: No VTE Prior VTE?: No VTE Risk Level:: Surgical - moderate VTE Device Contraindication: N/A - Device Ordered VTE Drug Contraindication: Treatment Not Indicated
[2024-04-08] VITALS (7 sets, daily range): BP systolic 101–126; BP diastolic 53–60; PULSE 76–86; RESP 16–18; TEMP 36.5–37; O2SAT 93–97
[2024-04-08] MEDS: Piperacillin Sodium/Tazobactam 3.375 GM in 0.9 % Sodium Chloride 50 ML IV ×4 (01:29→19:59)
[2024-04-08] MEDS: Lactated Ringers 1,000 ML 175 ML IVCONT ×3 (03:10→14:22)
[2024-04-08 05:16] LABS: MANUAL DIFF FLAG NO
[2024-04-08 05:17] LABS: Basophils Percent Auto 0.5 % (0-2); Eosinophils Absolute Auto 0.1 X10*3/uL (0.0-0.4); Eosinophils Percent Auto 1.6 % (0-4); Hematocrit 28.1 % (37.0-47.0); Hemoglobin 9.1 g/dl (12.0-16.0); Imm Gran Abs Auto 0.05 X10*3/uL (0.00-0.03); Imm Gran Pct Auto 0.7 % (0.0-0.4); Lymphocytes Absolute Auto 0.9 X10*3/uL (1.2-4.9); Mean Corpuscular HGB Conc 32.4 g/dl (31.0-35.0); Mean Corpuscular Hemoglobin 28.5 pg (27.0-33.0); Mean Corpuscular Volume 88.1 fL (80.0-98.0); Mean Platelet Volume 8.7 fL (9.4-12.3); Monocytes Absolute Auto 0.5 X10*3/uL (0.1-1.2); Monocytes Percent Auto 6.5 % (2-11); Neutrophils Percent Auto 78.7 % (45-73); Platelet Count 318 X10*3/uL (160-400); Red Blood Count 3.19 X10*6/uL (4.20-5.50); Red Cell Distribution Width 14.6 % (11.0-16.0); White Blood Count 7.7 X10*3/uL (4.8-10.8)
[2024-04-08] MEDS: Acetaminophen 1,000 MG/100 ML PIGGYBACK 16.7 MG IV ×2 (05:28→14:21)
[2024-04-08] MEDS: Pantoprazole Sodium 40 MG/10 ML VIAL IVPUSH ×2 (05:29→16:18)
[2024-04-08] MEDS: Levothyroxine Sodium 100 MCG/5 ML VIAL 75 MCG IVPUSH (05:30)
[2024-04-08 05:35] LABS: Anion Gap 17 (12-20); Blood Urea Nitrogen 9 mg/dL (9-16); C Reactive Protein 20.85 mg/dL (< or = 0.50); Calcium 8.1 mg/dL (8.4-10.2); Carbon Dioxide 23 mmol/L (22-29); Chloride 104 mmol/L (96-108); Creatinine Clr Calc Pharmacy 98.8; Estimated Glomerular Filt Rate > 60; Glucose Random 65 mg/dL (60-115); Lactic Acid 0.6 mmol/L (0.5-2.0); Phosphorus 3.2 mg/dL (2.7-4.5); Potassium 3.8 mmol/L (3.3-5.1); Sodium 140 mmol/L (135-145)
[2024-04-08] MEDS: ondansetron HCL 4 MG/2 ML VIAL IVPUSH ×2 (07:11→16:18)
[2024-04-08] MEDS: 0.9 % Sodium Chloride Flush 3 ML SYRINGE IVFLUSH (07:11)
--- NOTE | 2024-04-08 07:56 | PC.NURSE ---
F/C Removed at this time.
--- NOTE | 2024-04-08 10:25 | PC.NURSE ---
D/C Cont O2 [place].
--- NOTE | 2024-04-08 10:30 | PM.PNGS ---
Subjective Subjective Date of Service: 04/08/24 Interval history: Feels well. No issues after the NGT was removed. Passed flatus. Incisional pain has improved. Ambulating and is using the incentive spirometer. Physical Exam Vital Signs: Vital Signs: Last Vital Signs Temp 98.4 F 04/08/24 08:00 Pulse 83 04/08/24 08:00 Resp 16 04/08/24 08:00 BP 101/53 L 04/08/24 08:00 Pulse Ox 94 04/08/24 08:00 O2 Del Method Room Air 04/08/24 08:00 O2 Flow Rate 2 04/07/24 03:04 Oxygen Flow Rate 2.0 04/06/24 12:40 BMI result Body Mass Index 29.2 GI: Inspection: Yes normal to inspection, Yes incision (clean, dry and intact) and Yes obesity Palpation (GI): Soft to palpation Extrem: Right lower extremity: normal to inspection (no calf tenderness) Left lower extremity: normal to inspection (no calf tenderness) Objective Data Active Medications Albuterol Sulfate (Albuterol Sulfate 90 Mcg 8 Gm Inhaler) 2 puff INHALE RQ6H PRN PRN Reason: Wheezing Hydromorphone HCl (Hydromorphone Hcl 0.5 Mg/0.5 Ml Syringe) 0.25 mg IVPUSH Q4H PRN; Protocol PRN Reason: Pain, Severe (Pain Scale 7-10) Last Admin: 04/06/24 13:24 Dose: 0.25 mg Documented By: UCHE Comments: telephone order from provider ok to give early Lactated Ringer's (Lr) 1,000 mls @ 175 mls/hr IVCONT .Q5H43M [facility] Last Admin: 04/08/24 08:55 Dose: 175 mls/hr Documented By: WONG Acetaminophen (Ofirmev) 1,000 mg in 100 mls @ 16.7 mls/hr IV .Q6H [facility] Last Admin: 04/08/24 05:28 Dose: 16.7 mls/hr Documented By: RED-ELIZABETH Piperacillin Sod/Tazobactam (Sod 3.375 gm/ Sodium Chloride) 50 mls @ 100 mls/hr IV Q6H [facility] Last Infusion: 04/08/24 08:00 Dose: Infused Documented By: WONG Levothyroxine Sodium (Levothyroxine Sodium 100 Mcg/5 Ml Vial) 75 mcg IVPUSH DAILY@0630 [facility] Last Admin: 04/08/24 05:30 Dose: 75 mcg Documented By: RADHIKA Lorazepam (Lorazepam 2 Mg/Ml Vial) 0.25 mg IVPUSH Q8H PRN PRN Reason: Anxiety Metoclopramide HCl (Metoclopramide Hcl 10 Mg/2 Ml Vial) 10 mg IVPUSH Q6H PRN PRN Reason: Nausea Naloxone HCl (Naloxone Hcl 0.4 Mg/Ml Vial) 0.04 mg IVPUSH Q5M PRN PRN Reason: Excessive sedation or RR < 8 Ondansetron HCl (Ondansetron Hcl 4 Mg/2 Ml Vial) 4 mg IVPUSH Q8H [facility] Last Admin: 04/08/24 07:11 Dose: 4 mg Documented By: WONG Pantoprazole Sodium (Pantoprazole Sodium 40 Mg/10 Ml Vial) 40 mg IVPUSH BID@0630,1630 [facility] Last Admin: 04/08/24 05:29 Dose: 40 mg Documented By: RADHIKA Sodium Chloride (0.9 % Sodium Chloride Flush 3 Ml Syringe) 3 ml IVFLUSH QSHIFT [facility] Last Admin: 04/08/24 07:11 Dose: 3 ml Documented By: WONG Labs 04/08/24 05:08 04/08/24 05:08 Labs: Laboratory Results - last 24 hr 04/08/24 05:08 MCV 88.1 MCH 28.5 MCHC 32.4 RDW 14.6 Plt Count 318 MPV 8.7 L Immature Gran % (Auto) 0.7 H Neut % (Auto) 78.7 H Lymph % (Auto) 12.0 L [place] % (Auto) 6.5 Eos % (Auto) 1.6 Baso % (Auto) 0.5 Lymph # (Auto) 0.9 L [place] # (Auto) 0.5 Eos # (Auto) 0.1 Baso # (Auto) 0.0 Abs Immat Gran (auto) 0.05 H Absolute Neuts (auto) 6.0 Absolute Nucleated RBC 0.000 Nucleated RBC % (auto) 0.0 Anion Gap 17 Estim Creat Clear Calc 98.8 Estimated GFR > 60 Random Glucose 65 Lactic Acid 0.6 Calcium 8.1 L Phosphorus 3.2 Magnesium 2.0 C-Reactive Protein 20.85 H Microbiology Microbiology Results: Microbiology 04/05/24 07:56 Blood Culture - Preliminary Blood - Venous No growth after 48 hours. 04/05/24 07:56 Blood Culture - Preliminary Blood - Venous No growth after 48 hours. Procedures Date of Service Date of Service: 04/08/24 Progress Note: A&P Assessment and plan (1) 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: Status: Acute Assessment and Plan: 1) D/C [place] 2) Bariatric phase 1 diet 3) Continue ambulation and incentive spirometer 4) IV iron Plan was discussed with patient and her Time Spent With Patient Time: Total time managing care of this patient today ____ minutes. Quality Stroke Does the patient have a stroke diagnosis?: No VTE Prior VTE?: No VTE Risk Level:: Surgical - moderate VTE Device Contraindication: N/A - Device Ordered VTE Drug Contraindication: Treatment Not Indicated
[2024-04-08] MEDS: Thiamine HCL 100 MG in 0.9 % Sodium Chloride 100 ML 202 MG IV (10:52)
[2024-04-08] MEDS: Cyanocobalamin (Vitamin B-12) 1,000 MCG/ML VIAL 1000 MCG IM (10:52)
[2024-04-08] MEDS: Folic Acid 1 MG in 0.9 % Sodium Chloride 50 ML 100.4 MG IV (11:48)
[2024-04-08] MEDS: Iron Sucrose Complex 400 MG in 0.9 % Sodium Chloride 250 ML 180 MG IV (12:18)
--- NOTE | 2024-04-08 12:24 | PC.NURSE ---
LR and APAP on Hold due to limited IV Access. Will re-start after IV Iron solution.
[2024-04-09] MEDS: ondansetron HCL 4 MG/2 ML VIAL IVPUSH ×3 (00:20→16:17)
[2024-04-09] MEDS: Acetaminophen 1,000 MG/100 ML PIGGYBACK 16.7 MG IV ×4 (01:58→20:22)
[2024-04-09] MEDS: Piperacillin Sodium/Tazobactam 3.375 GM in 0.9 % Sodium Chloride 50 ML IV ×4 (02:01→20:32)
[2024-04-09] MEDS: Lactated Ringers 1,000 ML 175 ML IVCONT ×3 (02:02→11:48)
[2024-04-09 03:22] VITALS: BP 121/60; PULSE 82; RESP 16; TEMP 36.7; O2SAT 95
[2024-04-09 05:23] LABS: MANUAL DIFF FLAG NO
[2024-04-09 05:24] LABS: Basophils Percent Auto 0.4 % (0-2); Eosinophils Absolute Auto 0.2 X10*3/uL (0.0-0.4); Eosinophils Percent Auto 2.1 % (0-4); Hematocrit 28.8 % (37.0-47.0); Hemoglobin 9.3 g/dl (12.0-16.0); Imm Gran Abs Auto 0.06 X10*3/uL (0.00-0.03); Imm Gran Pct Auto 0.8 % (0.0-0.4); Lymphocytes Absolute Auto 0.7 X10*3/uL (1.2-4.9); Lymphocytes Percent Auto 9.8 % (20-40); Mean Corpuscular HGB Conc 32.3 g/dl (31.0-35.0); Mean Corpuscular Hemoglobin 28.1 pg (27.0-33.0); Mean Platelet Volume 8.8 fL (9.4-12.3); Monocytes Absolute Auto 0.5 X10*3/uL (0.1-1.2); Monocytes Percent Auto 7.5 % (2-11); Neutrophils Absolute Auto 5.6 x10*3/uL (2.0-8.3); Neutrophils Percent Auto 79.4 % (45-73); Platelet Count 361 X10*3/uL (160-400); Red Blood Count 3.31 X10*6/uL (4.20-5.50); Red Cell Distribution Width 14.6 % (11.0-16.0); White Blood Count 7.1 X10*3/uL (4.8-10.8)
[2024-04-09 05:38] LABS: Anion Gap 18 (12-20); Blood Urea Nitrogen 5 mg/dL (9-16); C Reactive Protein 19.29 mg/dL (< or = 0.50); Calcium 8.3 mg/dL (8.4-10.2); Carbon Dioxide 23 mmol/L (22-29); Chloride 103 mmol/L (96-108); Creatinine Clr Calc Pharmacy 92.1; Estimated Glomerular Filt Rate > 60; Glucose Random 77 mg/dL (60-115); Potassium 3.5 mmol/L (3.3-5.1); Sodium 140 mmol/L (135-145)
[2024-04-09 05:39] LABS: Lactic Acid 0.6 mmol/L (0.5-2.0)
[2024-04-09] MEDS: Levothyroxine Sodium 100 MCG/5 ML VIAL 75 MCG IVPUSH (06:35)
[2024-04-09 07:29] VITALS: BP 129/61; PULSE 77; RESP 16; TEMP 36.9; O2SAT 93
[2024-04-09] MEDS: Thiamine HCL 100 MG in 0.9 % Sodium Chloride 100 ML 202 MG IV (08:16)
--- NOTE | 2024-04-09 10:58 | P.PNGS_ITS ---
Subjective Subjective Date of Service: 04/09/24 Patient reports: feels better, pain is less, voiding w/o difficulty and flatus Interval history: 64-year-old female, postop day 4, status post bowel resection secondary to necrosis and volvulus as well as small bowel perforation, primarily repaired. She is tolerating bariatric phase 1 diet. Ambulating without difficulty. Voiding without difficulty. Positive flatus. Remains on IV antibiotics and IV analgesia with acetaminophen. Physical Exam 2 Vital Signs: Vital Signs: Last Vital Signs Temp 98.4 F 04/09/24 07:29 Pulse 77 04/09/24 07:29 Resp 16 04/09/24 07:29 BP 129/61 04/09/24 07:29 Pulse Ox 93 04/09/24 07:29 O2 Del Method Room Air 04/09/24 07:29 O2 Flow Rate 2 04/07/24 03:04 Oxygen Flow Rate 2.0 04/06/24 12:40 BMI result Body Mass Index 29.2 Const: General: cooperative, healthy appearing and no acute distress Resp: Effort & Inspection: normal respiratory effort Auscultation: clear to auscultation bilaterally Cardio: Rate: regular rate Rhythm: regular rhythm GI: Inspection: Yes incision (No strike through stain on the dressing) P alpation (GI): Soft to palpation and nontender Auscultation: normal bowel sounds Extrem: General: Yes no pedal edema Objective Data Active Medications Albuterol Sulfate (Albuterol Sulfate 90 Mcg 8 Gm Inhaler) 2 puff INHALE RQ6H PRN PRN Reason: Wheezing Hydromorphone HCl (Hydromorphone Hcl 0.5 Mg/0.5 Ml Syringe) 0.25 mg IVPUSH Q4H PRN; Protocol PRN Reason: Pain, Severe (Pain Scale 7-10) Last Admin: 04/06/24 13:24 Dose: 0.25 mg Documented By: UCHE Comments: telephone order from provider ok to give early Piperacillin Sod/Tazobactam (Sod 3.375 gm/ Sodium Chloride) 50 mls @ 100 mls/hr IV Q6H [facility] Last Infusion: 04/09/24 09:48 Dose: Infused Documented By: FELIPA Thiamine HCl 100 mg/ Sodium (Chloride) 101 mls @ 202 mls/hr IV DAILY [facility] Last Infusion: 04/09/24 10:09 Dose: Infused Documented By: FELIPA Lactated Ringer's (Lr) 1,000 mls @ 100 mls/hr IVCONT .Q10H [facility] Last Admin: 04/09/24 05:43 Dose: 175 mls/hr Documented By: ANTHONY Acetaminophen (Ofirmev) 1,000 mg in 100 mls @ 16.7 mls/hr IV .Q6H [facility] Last Admin: 04/09/24 08:15 Dose: 16.7 mls/hr Documented By: FELIPA Levothyroxine Sodium (Levothyroxine Sodium 100 Mcg/5 Ml Vial) 75 mcg IVPUSH DAILY@0630 [facility] Last Admin: 04/09/24 06:35 Dose: 75 mcg Documented By: JARED Lorazepam (Lorazepam 2 Mg/Ml Vial) 0.25 mg IVPUSH Q8H PRN PRN Reason: Anxiety Metoclopramide HCl (Metoclopramide Hcl 10 Mg/2 Ml Vial) 10 mg IVPUSH Q6H PRN PRN Reason: Nausea Naloxone HCl (Naloxone Hcl 0.4 Mg/Ml Vial) 0.04 mg IVPUSH Q5M PRN PRN Reason: Excessive sedation or RR < 8 Ondansetron HCl (Ondansetron Hcl 4 Mg/2 Ml Vial) 4 mg IVPUSH Q8H [facility] Last Admin: 04/09/24 08:15 Dose: 4 mg Documented By: FELIPA Sodium Chloride (0.9 % Sodium Chloride Flush 3 Ml Syringe) 3 ml IVFLUSH QSHIFT [facility] Last Admin: 04/09/24 08:34 Dose: Not Given Documented By: FELIPA Non-Admin Reason: IV Running Labs 04/09/24 05:11 04/09/24 05:11 Labs: Laboratory Results - last 24 hr 04/09/24 05:11 MCV 87.0 MCH 28.1 MCHC 32.3 RDW 14.6 Plt Count 361 MPV 8.8 L Immature Gran % (Auto) 0.8 H Neut % (Auto) 79.4 H Lymph % (Auto) 9.8 L [place] % (Auto) 7.5 Eos % (Auto) 2.1 Baso % (Auto) 0.4 Lymph # (Auto) 0.7 L [place] # (Auto) 0.5 Eos # (Auto) 0.2 Baso # (Auto) 0.0 Abs Immat Gran (auto) 0.06 H Absolute Neuts (auto) 5.6 Absolute Nucleated RBC 0.000 Nucleated RBC % (auto) 0.0 Anion Gap 18 Estim Creat Clear Calc 92.1 Estimated GFR > 60 Random Glucose 77 Lactic Acid 0.6 Calcium 8.3 L C-Reactive Protein 19.29 H Procedures Date of Service Date of Service: 04/09/24 Progress Note: A&P Assessment and plan (1) 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: Status: Acute Plan Postop day 4, status post bowel resection with anastomosis and primary repair of secondary perforation Advanced to a bariatric phase 2 diet Decrease IV fluid rate to 100 mL/hour Repeat CBC, Chem 7 in the morning Continue IV antibiotics, Zosyn, day 4 Continued encouraged early ambulation Continue incentive spirometer Continue sequential compression garments while in bed We will continue to monitor and challenge GI system over the next few days, monitor labs, continue IV antibiotics. Monitor for any late intra-abdominal abscess Discussed case entirely with Dr. Hannah. Discussed case with patient and patient's family who was at bedside. All questions answered to their satisfaction. Time Spent With Patient Time: Total time managing care of this patient today ____ minutes. Quality Stroke Does the patient have a stroke diagnosis?: No VTE Prior VTE?: No VTE Risk Level:: Surgical - moderate VTE Device Contraindication: N/A - Device Ordered VTE Drug Contraindication: Treatment Not Indicated
[2024-04-09 11:22] VITALS: BP 124/60; PULSE 78; RESP 16; TEMP 37.2; O2SAT 93
[2024-04-09 15:00] VITALS: BP 129/67; PULSE 80; RESP 16; TEMP 36.2; O2SAT 98
[2024-04-09 19:25] VITALS: BP 138/69; PULSE 77; RESP 18; TEMP 36.4; O2SAT 94
[2024-04-09] MEDS: Lactated Ringers 1,000 ML 100 ML IVCONT (20:23)
[2024-04-09 23:45] VITALS: BP 131/63; PULSE 69; RESP 18; TEMP 36.6; O2SAT 95
[2024-04-10] MEDS: ondansetron HCL 4 MG/2 ML VIAL IVPUSH ×4 (00:38→23:53)
[2024-04-10] MEDS: Acetaminophen 1,000 MG/100 ML PIGGYBACK 16.7 MG IV ×4 (02:27→21:15)
[2024-04-10] MEDS: Piperacillin Sodium/Tazobactam 3.375 GM in 0.9 % Sodium Chloride 50 ML IV ×4 (02:30→19:52)
[2024-04-10 03:45] VITALS: BP 122/58; PULSE 71; RESP 16; TEMP 36.7; O2SAT 96
[2024-04-10] MEDS: Levothyroxine Sodium 100 MCG/5 ML VIAL 75 MCG IVPUSH (05:52)
[2024-04-10] MEDS: Lactated Ringers 1,000 ML 100 ML IVCONT ×2 (06:29→18:27)
[2024-04-10 07:32] LABS: MANUAL DIFF FLAG NO
[2024-04-10 07:37] LABS: Basophils Percent Auto 0.5 % (0-2); Eosinophils Absolute Auto 0.2 X10*3/uL (0.0-0.4); Eosinophils Percent Auto 3.3 % (0-4); Hematocrit 30.9 % (37.0-47.0); Hemoglobin 9.6 g/dl (12.0-16.0); Imm Gran Abs Auto 0.09 X10*3/uL (0.00-0.03); Imm Gran Pct Auto 1.4 % (0.0-0.4); Lymphocytes Absolute Auto 0.9 X10*3/uL (1.2-4.9); Lymphocytes Percent Auto 13.7 % (20-40); Mean Corpuscular HGB Conc 31.1 g/dl (31.0-35.0); Mean Corpuscular Hemoglobin 27.9 pg (27.0-33.0); Mean Corpuscular Volume 89.8 fL (80.0-98.0); Mean Platelet Volume 9.2 fL (9.4-12.3); Monocytes Absolute Auto 0.5 X10*3/uL (0.1-1.2); Monocytes Percent Auto 7.8 % (2-11); Neutrophils Absolute Auto 4.8 x10*3/uL (2.0-8.3); Neutrophils Percent Auto 73.3 % (45-73); Platelet Count 435 X10*3/uL (160-400); Red Blood Count 3.44 X10*6/uL (4.20-5.50); Red Cell Distribution Width 14.6 % (11.0-16.0); White Blood Count 6.6 X10*3/uL (4.8-10.8)
[2024-04-10 07:51] VITALS: BP 119/56; PULSE 73; RESP 16; TEMP 36.1; O2SAT 98
[2024-04-10 07:54] LABS: Anion Gap 22 (12-20); Blood Urea Nitrogen 5 mg/dL (9-16); C Reactive Protein 15.09 mg/dL (< or = 0.50); Calcium 8.5 mg/dL (8.4-10.2); Carbon Dioxide 20 mmol/L (22-29); Chloride 103 mmol/L (96-108); Creatinine Clr Calc Pharmacy 92.1; Estimated Glomerular Filt Rate > 60; Glucose Random 62 mg/dL (60-115); Potassium 3.7 mmol/L (3.3-5.1); Sodium 141 mmol/L (135-145)
[2024-04-10] MEDS: 0.9 % Sodium Chloride Flush 3 ML SYRINGE IVFLUSH (08:45)
--- NOTE | 2024-04-10 09:48 | PM.PNGS ---
Subjective Subjective Date of Service: 04/10/24 Patient reports: no new complaints, feels better, tolerating liquids well and flatus Interval history: Very pleasant 64-year-old female, postop day 6 status post bowel resection with anastomosis and repair of separately identified perforation. Overall, she feels improved. Ambulating freely on the unit. Passing flatus. Tolerating a bariatric phase 2 diet. Physical Exam Vital Signs: Vital Signs: Last Vital Signs Temp 96.9 F 04/10/24 07:51 Pulse 73 04/10/24 07:51 Resp 16 04/10/24 07:51 BP 119/56 L 04/10/24 07:51 Pulse Ox 98 04/10/24 07:51 O2 Del Method Room Air 04/10/24 07:51 O2 Flow Rate 2 04/07/24 03:04 Oxygen Flow Rate 2.0 04/06/24 12:40 BMI result Body Mass Index 29.2 Const: General: healthy appearing and no acute distress Resp: Auscultation: clear to auscultation bilaterally Cardio: Rate: regular rate Rhythm: regular rhythm GI: Inspection: Yes incision (Very minimal ecchymosis. Otherwise clean, dry, intact) Auscultation: normal bowel sounds Extrem: General: Yes no pedal edema Objective Data Active Medications Albuterol Sulfate (Albuterol Sulfate 90 Mcg 8 Gm Inhaler) 2 puff INHALE RQ6H PRN PRN Reason: Wheezing Hydromorphone HCl (Hydromorphone Hcl 0.5 Mg/0.5 Ml Syringe) 0.25 mg IVPUSH Q4H PRN; Protocol PRN Reason: Pain, Severe (Pain Scale 7-10) Last Admin: 04/06/24 13:24 Dose: 0.25 mg Documented By: UCHE Comments: telephone order from provider ok to give early Piperacillin Sod/Tazobactam (Sod 3.375 gm/ Sodium Chloride) 50 mls @ 100 mls/hr IV Q6H [facility] Last Infusion: 04/10/24 09:41 Dose: Infused Documented By: VICKEY Thiamine HCl 100 mg/ Sodium (Chloride) 101 mls @ 202 mls/hr IV DAILY [facility] Last Infusion: 04/09/24 10:09 Dose: Infused Documented By: FELIPA Lactated Ringer's (Lr) 1,000 mls @ 100 mls/hr IVCONT .Q10H [facility] Last Admin: 04/10/24 06:29 Dose: 100 mls/hr Documented By: CHEN Acetaminophen (irmev) 1,000 mg in 100 mls @ 16.7 mls/hr IV .Q6H [facility] Last Admin: 04/10/24 08:42 Dose: 16.7 mls/hr Documented By: VICKEY Levothyroxine Sodium (Levothyroxine Sodium 100 Mcg/5 Ml Vial) 75 mcg IVPUSH DAILY@0630 [facility] Last Admin: 04/10/24 05:52 Dose: 75 mcg Documented By: CHEN Lorazepam (Lorazepam 2 Mg/Ml Vial) 0.25 mg IVPUSH Q8H PRN PRN Reason: Anxiety Metoclopramide HCl (Metoclopramide Hcl 10 Mg/2 Ml Vial) 10 mg IVPUSH Q6H PRN PRN Reason: Nausea Naloxone HCl (Naloxone Hcl 0.4 Mg/Ml Vial) 0.04 mg IVPUSH Q5M PRN PRN Reason: Excessive sedation or RR < 8 Ondansetron HCl (Ondansetron Hcl 4 Mg/2 Ml Vial) 4 mg IVPUSH Q8H [facility] Last Admin: 04/10/24 08:44 Dose: 4 mg Documented By: VICKEY Sodium Chloride (0.9 % Sodium Chloride Flush 3 Ml Syringe) 3 ml IVFLUSH QSHIFT [facility] Last Admin: 04/10/24 08:45 Dose: 3 ml Documented By: VICKEY Labs 04/10/24 06:03 04/10/24 06:03 Labs: Laboratory Results - last 24 hr 04/10/24 06:03 MCV 89.8 MCH 27.9 MCHC 31.1 RDW 14.6 Plt Count 435 H MPV 9.2 L Immature Gran % (Auto) 1.4 H Neut % (Auto) 73.3 H Lymph % (Auto) 13.7 L [place] % (Auto) 7.8 Eos % (Auto) 3.3 Baso % (Auto) 0.5 Lymph # (Auto) 0.9 L [place] # (Auto) 0.5 Eos # (Auto) 0.2 Baso # (Auto) 0.0 Abs Immat Gran (auto) 0.09 H Absolute Neuts (auto) 4.8 Absolute Nucleated RBC 0.000 Nucleated RBC % (auto) 0.0 Anion Gap 22 H Estim Creat Clear Calc 92.1 Estimated GFR > 60 Random Glucose 62 Calcium 8.5 C-Reactive Protein 15.09 H Procedures Date of Service Date of Service: 04/10/24 Progress Note: A&P Assessment and plan (1) Small bowel perforation: Status: Acute Assessment and Plan: Postop day 6, status post small bowel resection with anastomosis secondary to necrosis secondary to volvulus. Additionally repair of separately identified perforation. She has continued to show improvement. We will continue IV fluids, IV antibiotics, advance to bariatric phase 3 diet with 2 shakes today. Repeat labs in the morning. Possibly discharge home tomorrow. Plan Discussed case with Dr. Hannah. Time Spent With Patient Time: Total time managing care of this patient today ____ minutes. Quality Stroke Does the patient have a stroke diagnosis?: No VTE Prior VTE?: No VTE Risk Level:: Surgical - moderate VTE Device Contraindication: N/A - Device Ordered VTE Drug Contraindication: Treatment Not Indicated
[2024-04-10] MEDS: Thiamine HCL 100 MG in 0.9 % Sodium Chloride 100 ML 202 MG IV (09:54)
[2024-04-10 11:23] VITALS: BP 114/56; PULSE 76; RESP 16; TEMP 36.8; O2SAT 95
[2024-04-10 16:00] VITALS: BP 115/61; PULSE 79; RESP 18; TEMP 36.9
[2024-04-10 19:18] VITALS: BP 112/53; PULSE 86; RESP 18; TEMP 36.4; O2SAT 95
[2024-04-10 23:42] VITALS: BP 125/58; PULSE 74; RESP 16; TEMP 36.1; O2SAT 95
[2024-04-11] MEDS: Piperacillin Sodium/Tazobactam 3.375 GM in 0.9 % Sodium Chloride 50 ML IV ×4 (02:22→20:00)
[2024-04-11] MEDS: Lactated Ringers 1,000 ML 100 ML IVCONT ×3 (02:25→21:59)
[2024-04-11] MEDS: Acetaminophen 1,000 MG/100 ML PIGGYBACK 16.7 MG IV ×4 (02:58→21:58)
[2024-04-11 04:00] VITALS: BP 115/56; PULSE 89; RESP 16; TEMP 36; O2SAT 95
[2024-04-11 06:01] LABS: MANUAL DIFF FLAG NO
[2024-04-11 06:10] LABS: Basophils Percent Auto 0.7 % (0-2); Eosinophils Absolute Auto 0.2 X10*3/uL (0.0-0.4); Eosinophils Percent Auto 3.1 % (0-4); Hematocrit 31.4 % (37.0-47.0); Imm Gran Abs Auto 0.17 X10*3/uL (0.00-0.03); Imm Gran Pct Auto 2.8 % (0.0-0.4); Lymphocytes Percent Auto 16.8 % (20-40); Mean Corpuscular HGB Conc 31.8 g/dl (31.0-35.0); Mean Corpuscular Hemoglobin 28.5 pg (27.0-33.0); Mean Corpuscular Volume 89.5 fL (80.0-98.0); Mean Platelet Volume 8.8 fL (9.4-12.3); Monocytes Absolute Auto 0.6 X10*3/uL (0.1-1.2); Monocytes Percent Auto 9.6 % (2-11); Neutrophils Absolute Auto 4.1 x10*3/uL (2.0-8.3); Platelet Count 500 X10*3/uL (160-400); Red Blood Count 3.51 X10*6/uL (4.20-5.50); Red Cell Distribution Width 14.6 % (11.0-16.0); White Blood Count 6.1 X10*3/uL (4.8-10.8)
[2024-04-11] MEDS: Levothyroxine Sodium 100 MCG/5 ML VIAL 75 MCG IVPUSH (06:12)
[2024-04-11 06:31] LABS: Anion Gap 12 (12-20); Blood Urea Nitrogen 7 mg/dL (9-16); C Reactive Protein 9.36 mg/dL (< or = 0.50); Calcium 7.8 mg/dL (8.4-10.2); Carbon Dioxide 27 mmol/L (22-29); Chloride 104 mmol/L (96-108); Creatinine Clr Calc Pharmacy 84.8; Estimated Glomerular Filt Rate > 60; Glucose Random 123 mg/dL (60-115); Potassium 3.2 mmol/L (3.3-5.1); Sodium 140 mmol/L (135-145)
[2024-04-11 08:03] VITALS: BP 120/60; PULSE 73; RESP 12; TEMP 36; O2SAT 95
[2024-04-11] MEDS: ondansetron HCL 4 MG/2 ML VIAL IVPUSH ×3 (08:51→23:53)
--- NOTE | 2024-04-11 08:59 | PM.PNGS ---
Subjective Subjective Date of Service: 04/11/24 Patient reports: pain is less, tolerating liquids well, flatus and bowel movement Interval history: Postop day 6, status post bowel resection with anastomosis secondary to necrosis secondary to volvulus as well as primary repair of secondary perforation. Patient is doing very well and progressing on a daily basis. She tolerated her protein shakes yesterday and has been ambulating without difficulty. Physical Exam Vital Signs: Vital Signs: Last Vital Signs Temp 96.8 F 04/11/24 08:03 Pulse 73 04/11/24 08:03 Resp 12 04/11/24 08:03 BP 120/60 04/11/24 08:03 Pulse Ox 95 04/11/24 08:03 O2 Del Method Room Air 04/11/24 08:03 O2 Flow Rate 2 04/07/24 03:04 Oxygen Flow Rate 2.0 04/06/24 12:40 BMI result Body Mass Index 29.2 Const: General: cooperative, healthy appearing and no acute distress Resp: Effort & Inspection: normal respiratory effort Auscultation: clear to auscultation bilaterally Cardio: Rate: regular rate Rhythm: regular rhythm GI: Inspection: Yes incision (No strike through drainage) Palpation (GI): Soft to palpation and nontender Auscultation: normal bowel sounds Extrem: General: Yes no pedal edema Objective Data Active Medications Albuterol Sulfate (Albuterol Sulfate 90 Mcg 8 Gm Inhaler) 2 puff INHALE RQ6H PRN PRN Reason: Wheezing Hydromorphone HCl (Hydromorphone Hcl 0.5 Mg/0.5 Ml Syringe) 0.25 mg IVPUSH Q4H PRN; Protocol PRN Reason: Pain, Severe (Pain Scale 7-10) Last Admin: 04/06/24 13:24 Dose: 0.25 mg Documented By: UCHE Comments: telephone order from provider ok to give early Piperacillin Sod/Tazobactam (Sod 3.375 gm/ Sodium Chloride) 50 mls @ 100 mls/hr IV Q6H [facility] Last Infusion: 04/11/24 03:00 Dose: Infused Documented By: OZ Thiamine HCl 100 mg/ Sodium (Chloride) 101 mls @ 202 mls/hr IV DAILY [facility] Last Infusion: 04/10/24 10:31 Dose: Infused Documented By: VICKEY Lactated Ringer's (Lr) 1,000 mls @ 100 mls/hr IVCONT .Q10H [facility] Last Admin: 04/11/24 02:25 Dose: 100 mls/hr Documented By: OZ Acetaminophen (Ofirmev) 1,000 mg in 100 mls @ 16.7 mls/hr IV .Q6H [facility] Last Admin: 04/11/24 02:58 Dose: 16.7 mls/hr Documented By: OZ Potassium Chloride (Potassium Chloride/H20) 20 meq in 100 mls @ 100 mls/hr IV ONCE ONE Stop: 04/11/24 09:55 Levothyroxine Sodium (Levothyroxine Sodium 100 Mcg/5 Ml Vial) 75 mcg IVPUSH DAILY@0630 [facility] Last Admin: 04/11/24 06:12 Dose: 75 mcg Documented By: OZ Lorazepam (Lorazepam 2 Mg/Ml Vial) 0.25 mg IVPUSH Q8H PRN PRN Reason: Anxiety Metoclopramide HCl (Metoclopramide Hcl 10 Mg/2 Ml Vial) 10 mg IVPUSH Q6H PRN PRN Reason: Nausea Naloxone HCl (Naloxone Hcl 0.4 Mg/Ml Vial) 0.04 mg IVPUSH Q5M PRN PRN Reason: Excessive sedation or RR < 8 Ondansetron HCl (Ondansetron Hcl 4 Mg/2 Ml Vial) 4 mg IVPUSH Q8H [facility] Last Admin: 04/10/24 23:53 Dose: 4 mg Documented By: OZ Sodium Chloride (0.9 % Sodium Chloride Flush 3 Ml Syringe) 3 ml IVFLUSH QSHIFT [facility] Last Admin: 04/11/24 00:23 Dose: Not Given Documented By: OZ Non-Admin Reason: IV Running Labs 04/11/24 05:40 04/11/24 05:40 Labs: Laboratory Results - last 24 hr 04/11/24 05:40 MCV 89.5 MCH 28.5 MCHC 31.8 RDW 14.6 Plt Count 500 H MPV 8.8 L Immature Gran % (Auto) 2.8 H Neut % (Auto) 67.0 Lymph % (Auto) 16.8 L [place] % (Auto) 9.6 Eos % (Auto) 3.1 Baso % (Auto) 0.7 Lymph # (Auto) 1.0 L [place] # (Auto) 0.6 Eos # (Auto) 0.2 Baso # (Auto) 0.0 Abs Immat Gran (auto) 0.17 H Absolute Neuts (auto) 4.1 Absolute Nucleated RBC 0.000 Nucleated RBC % (auto) 0.0 Anion Gap 12 Estim Creat Clear Calc 84.8 Estimated GFR > 60 Random Glucose 123 H Calcium 7.8 L D C-Reactive Protein 9.36 H Microbiology Microbiology Results: Microbiology 04/05/24 07:56 Blood Culture - Final Blood - Venous No growth after 5 days. 04/05/24 07:56 Blood Culture - Final Blood - Venous No growth after 5 days. Procedures Date of Service Date of Service: 04/11/24 Progress Note: A&P Assessment and plan (1) Small bowel perforation: Status: Acute Assessment and Plan: Postop day 6, status post small bowel resection with anastomosis secondary to necrosis secondary to volvulus as well as primary repair of a small bowel perforation. Patient is doing well, she is tolerating her shakes which we will now increase to 3 daily. Continue monitoring for any postoperative intra-abdominal abscess. Continue IV antibiotics. Repeat labs in the morning and if continued improvement, possible discharge home tomorrow. (2) Hypokalemia: Status: Acute Assessment and Plan: Replace with 20 mEq potassium chloride IV x1, repeat labs in the morning. (3) Depression: Status: Acute Assessment and Plan: Resume home Wellbutrin and Celexa orally (4) Hypothyroidism: Status: Acute Assessment and Plan: Transition from IV levothyroxine to home dose of levothyroxine 150 mcg daily Plan Case discussed in its entirety with Dr. Hannah. Time Spent With Patient Time: Total time managing care of this patient today ____ minutes. Quality Stroke Does the patient have a stroke diagnosis?: No VTE Prior VTE?: No VTE Risk Level:: Surgical - moderate VTE Device Contraindication: N/A - Device Ordered VTE Drug Contraindication: Treatment Not Indicated
[2024-04-11] MEDS: Escitalopram Oxalate 10 MG TABLET PO (10:43)
[2024-04-11] MEDS: buPROPion HCl XL 150 MG TAB.ER.24H 450 MG PO (10:43)
[2024-04-11] MEDS: Thiamine HCL 100 MG in 0.9 % Sodium Chloride 100 ML 202 MG IV (10:51)
[2024-04-11] MEDS: Potassium Chloride/H20 10 MEQ/100 ML PIGGYBACK 100 MEQ IV ×2 (11:40→12:51)
[2024-04-11 12:24] VITALS: BP 117/59; PULSE 73; RESP 18; TEMP 36.1; O2SAT 93
[2024-04-11 16:02] VITALS: BP 117/62; PULSE 79; RESP 18; TEMP 36.2; O2SAT 94
[2024-04-11 19:33] VITALS: BP 133/64; PULSE 101; RESP 16; TEMP 35.9; O2SAT 92
[2024-04-11 23:27] VITALS: BP 117/57; PULSE 81; RESP 16; TEMP 36.1; O2SAT 94
[2024-04-12] MEDS: Piperacillin Sodium/Tazobactam 3.375 GM in 0.9 % Sodium Chloride 50 ML IV ×2 (01:51→08:15)
[2024-04-12] MEDS: Acetaminophen 1,000 MG/100 ML PIGGYBACK 16.7 MG IV ×2 (03:10→08:16)
[2024-04-12 03:12] VITALS: BP 118/57; PULSE 69; RESP 16; TEMP 36.1; O2SAT 95
[2024-04-12 07:30] VITALS: BP 121/61; PULSE 80; RESP 16; TEMP 36.3; O2SAT 95
[2024-04-12 07:47] LABS: MANUAL DIFF FLAG NO
[2024-04-12 08:01] LABS: Basophils Percent Auto 0.6 % (0-2); Eosinophils Absolute Auto 0.2 X10*3/uL (0.0-0.4); Eosinophils Percent Auto 3.1 % (0-4); Hematocrit 30.5 % (37.0-47.0); Hemoglobin 9.4 g/dl (12.0-16.0); Imm Gran Abs Auto 0.15 X10*3/uL (0.00-0.03); Imm Gran Pct Auto 3.1 % (0.0-0.4); Lymphocytes Percent Auto 20.7 % (20-40); Mean Corpuscular HGB Conc 30.8 g/dl (31.0-35.0); Mean Corpuscular Hemoglobin 27.8 pg (27.0-33.0); Mean Corpuscular Volume 90.2 fL (80.0-98.0); Mean Platelet Volume 8.9 fL (9.4-12.3); Monocytes Absolute Auto 0.5 X10*3/uL (0.1-1.2); Monocytes Percent Auto 11.2 % (2-11); Neutrophils Percent Auto 61.3 % (45-73); Platelet Count 540 X10*3/uL (160-400); Red Blood Count 3.38 X10*6/uL (4.20-5.50); Red Cell Distribution Width 15.2 % (11.0-16.0); White Blood Count 4.8 X10*3/uL (4.8-10.8)
[2024-04-12] MEDS: Lactated Ringers 1,000 ML 100 ML IVCONT (08:09)
[2024-04-12] MEDS: Escitalopram Oxalate 10 MG TABLET PO (08:14)
[2024-04-12] MEDS: buPROPion HCl XL 150 MG TAB.ER.24H 450 MG PO (08:14)
[2024-04-12] MEDS: ondansetron HCL 4 MG/2 ML VIAL IVPUSH (08:16)
[2024-04-12 08:25] LABS: Anion Gap 14 (12-20); Blood Urea Nitrogen 9 mg/dL (9-16); Calcium 8.2 mg/dL (8.4-10.2); Carbon Dioxide 26 mmol/L (22-29); Chloride 105 mmol/L (96-108); Creatinine Clr Calc Pharmacy 93.7; Estimated Glomerular Filt Rate > 60; Glucose Random 93 mg/dL (60-115); Magnesium 2.1 mg/dL (1.6-2.6); Phosphorus 3.6 mg/dL (2.7-4.5); Potassium 3.8 mmol/L (3.3-5.1); Sodium 141 mmol/L (135-145)
[2024-04-12] MEDS: Thiamine HCL 100 MG in 0.9 % Sodium Chloride 100 ML 202 MG IV (08:29)
--- NOTE | 2024-04-12 10:15 | P.PNGS_ITS ---
Subjective Subjective Date of Service: 04/12/24 Patient reports: no new complaints, feels better and tolerating liquids well Interval history: 64-year-old female postop day 7, status post small bowel resection with anastomosis and secondary repair of bowel perforation of a separate location within the small bowel. She is doing well, tolerated shakes and water. No complaints of pain. Ambulating, urinating, moved her bowels yesterday. Physical Exam 2 Vital Signs: Vital Signs: Last Vital Signs Temp 97.3 F 04/12/24 07:30 Pulse 80 04/12/24 07:30 Resp 16 04/12/24 07:30 BP 121/61 04/12/24 07:30 Pulse Ox 95 04/12/24 07:30 O2 Del Method Room Air 04/12/24 07:30 O2 Flow Rate 2 04/07/24 03:04 Oxygen Flow Rate 2.0 04/06/24 12:40 BMI result Body Mass Index 29.2 Const: General: cooperative, healthy appearing, comfortable and no acute distress Resp: Effort & Inspection: normal respiratory effort Auscultation: clear to auscultation bilaterally Cardio: Rate: regular rate Rhythm: regular rhythm GI: Inspection: Yes incision ([place] intact. Mild ecchymosis. No drainage) Palpation (GI): Soft to palpation and nontender Auscultation: normal bowel sounds Extrem: General: Yes no pedal edema Objective Data Active Medications Albuterol Sulfate (Albuterol Sulfate 90 Mcg 8 Gm Inhaler) 2 puff INHALE RQ6H PRN PRN Reason: Wheezing Bupropion HCl (Bupropion Hcl Xl 150 Mg Tab.Er.24h) 450 mg PO DAILY [facility] Last Admin: 04/12/24 08:14 Dose: 450 mg Documented By: OSIRIS Escitalopram Oxalate (Escitalopram Oxalate 10 Mg Tablet) 10 mg PO DAILY [facility] Last Admin: 04/12/24 08:14 Dose: 10 mg Documented By: OSIRIS Hydromorphone HCl (Hydromorphone Hcl 0.5 Mg/0.5 Ml Syringe) 0.25 mg IVPUSH Q4H PRN; Protocol PRN Reason: Pain, Severe (Pain Scale 7-10) Last Admin: 04/06/24 13:24 Dose: 0.25 mg Documented By: UCHE Comments: telephone order from provider ok to give early Piperacillin Sod/Tazobactam (Sod 3.375 gm/ Sodium Chloride) 50 mls @ 100 mls/hr IV Q6H [facility] Last Infusion: 04/12/24 08:47 Dose: Infused Documented By: OSIRIS Thiamine HCl 100 mg/ Sodium (Chloride) 101 mls @ 202 mls/hr IV DAILY [facility] Last Infusion: 04/12/24 08:59 Dose: Infused Documented By: OSIRIS Acetaminophen (Ofirmev) 1,000 mg in 100 mls @ 16.7 mls/hr IV .Q6H [facility] Last Admin: 04/12/24 08:16 Dose: 16.7 mls/hr Documented By: OSIRIS Lactated Ringer's (Lr) 1,000 mls @ 100 mls/hr IVCONT .Q10H [facility] Last Admin: 04/12/24 08:09 Dose: 100 mls/hr Documented By: OSIRIS Levothyroxine Sodium (Levothyroxine Sodium 150 Mcg Tablet) 150 mcg PO [id number]@0600 [facility] Lorazepam (Lorazepam 2 Mg/Ml Vial) 0.25 mg IVPUSH Q8H PRN PRN Reason: Anxiety Metoclopramide HCl (Metoclopramide Hcl 10 Mg/2 Ml Vial) 10 mg IVPUSH Q6H PRN PRN Reason: Nausea Naloxone HCl (Naloxone Hcl 0.4 Mg/Ml Vial) 0.04 mg IVPUSH Q5M PRN PRN Reason: Excessive sedation or RR < 8 Ondansetron HCl (Ondansetron Hcl 4 Mg/2 Ml Vial) 4 mg IVPUSH Q8H [facility] Last Admin: 04/12/24 08:16 Dose: 4 mg Documented By: OSIRIS Sodium Chloride (0.9 % Sodium Chloride Flush 3 Ml Syringe) 3 ml IVFLUSH QSHIFT [facility] Last Admin: 04/12/24 07:26 Dose: Not Given Documented By: OSIRIS Non-Admin Reason: Previously Administered Labs 04/12/24 05:49 04/12/24 05:49 Labs: Laboratory Results - last 24 hr 04/12/24 05:49 MCV 90.2 MCH 27.8 MCHC 30.8 L RDW 15.2 Plt Count 540 H MPV 8.9 L Immature Gran % (Auto) 3.1 H Neut % (Auto) 61.3 Lymph % (Auto) 20.7 [place] % (Auto) 11.2 H Eos % (Auto) 3.1 Baso % (Auto) 0.6 Lymph # (Auto) 1.0 L [place] # (Auto) 0.5 Eos # (Auto) 0.2 Baso # (Auto) 0.0 Abs Immat Gran (auto) 0.15 H Absolute Neuts (auto) 3.0 Absolute Nucleated RBC 0.000 Nucleated RBC % (auto) 0.0 Anion Gap 14 Estim Creat Clear Calc 93.7 Estimated GFR > 60 Random Glucose 93 Calcium 8.2 L Phosphorus 3.6 Magnesium 2.1 C-Reactive Protein 5.60 H Procedures Date of Service Date of Service: 04/12/24 Progress Note: A&P Assessment and plan (1) 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: Status: Acute Assessment and Plan: Plan for discharge home today, labs normalized. No evidence of electrolyte abnormality. (2) Hypokalemia: Status: Acute Assessment and Plan: Resolved Plan Discussed case with Dr. Hannah Time Spent With Patient Time: Total time managing care of this patient today ____ minutes. Quality Stroke Does the patient have a stroke diagnosis?: No VTE Prior VTE?: No VTE Risk Level:: Surgical - moderate VTE Device Contraindication: N/A - Device Ordered VTE Drug Contraindication: Treatment Not Indicated
--- NOTE | 2024-04-12 10:17 | P.DS_ITS ---
DS: Providers Provider Date of Service: 04/12/24 Date of admission: 04/05/24 12:43 Primary care physician: Sohan Swain MD DS: Diagnosis Discharge Diagnosis (1) 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: Status: Acute (2) Hypokalemia: Status: Acute DS: Summary Hospital Course Hospital Course: Sonia Myles is a 64 year old female who presented in the ER with a 30-hour onset of vomiting and mid-epigastric/LUQ abdominal pain. The patient has a history of laparoscopic Cat-en-Y gastric bypass about [address] Kelley at [facility]. The symptoms began after a meal with lasagna. She vomited initially the food and since then she is dry heaving and spitting small amounts of bilious material. Never had similar symptoms in the past. Has been on Wegovy last few months and she claims she lost 30 lbs Workup in the emergency room revealed free air within the abdomen suggestive of small-bowel perforation and she was brought emergently to the operating room on 04/05/2024. She underwent exploratory laparoscopy with ultimate laparotomy requiring small bowel resection with primary anastomosis. She was found to have an additional small bowel perforation which was repaired primarily by suture. She tolerated the procedure well. Remained on broad-spectrum IV antibiotics and NPO status for the next several days. Diet was advanced to clear liquids and then protein shakes which she tolerated well. She has been up and ambulating freely on the unit. Urinating without difficulty and she moved her bowels yesterday. No evidence of fever, leukocytosis, electrolyte abnormality. We will plan for discharge home today and close follow-up Time Attestation Total time managing care of this patient today: 25 mintues. Discharge Coordination Time (in mins): 25 Quality: Safe Use of Opioids Does Pt have an Active Cancer Diagnosis on the Problem List?: No Quality: Stroke Does the patient have a stroke diagnosis?: No Physical Exam Vital Signs: Vital Signs: Last Vital Signs Temp 97.3 F 04/12/24 07:30 Pulse 80 04/12/24 07:30 Resp 16 04/12/24 07:30 BP 121/61 04/12/24 07:30 Pulse Ox 95 04/12/24 07:30 O2 Del Method Room Air 04/12/24 07:30 O2 Flow Rate 2 04/07/24 03:04 Oxygen Flow Rate 2.0 04/06/24 12:40 BMI result Body Mass Index 29.2 DS: Data Data Completed and Pending Completed studies during hospitalization [Text1]: Pending at discharge 04/05/24 14:49 Surgical [PTH] Routine Labs on day of discharge: Laboratory Results - last 24 hr 04/12/24 05:49 WBC 4.8 RBC 3.38 L Hgb 9.4 L Hct 30.5 L MCV 90.2 MCH 27.8 MCHC 30.8 L RDW 15.2 Plt Count 540 H MPV 8.9 L Immature Gran % (Auto) 3.1 H Neut % (Auto) 61.3 Lymph % (Auto) 20.7 Boundary % (Auto) 11.2 H Eos % (Auto) 3.1 Baso % (Auto) 0.6 Lymph # (Auto) 1.0 L Boundary # (Auto) 0.5 Eos # (Auto) 0.2 Baso # (Auto) 0.0 Abs Immat Gran (auto) 0.15 H Absolute Neuts (auto) 3.0 Absolute Nucleated RBC 0.000 Nucleated RBC % (auto) 0.0 Sodium 141 Potassium 3.8 Chloride 105 Carbon Dioxide 26 Anion Gap 14 BUN 9 Creatinine 0.58 Estim Creat Clear Calc 93.7 Estimated GFR > 60 Random Glucose 93 Calcium 8.2 L Phosphorus 3.6 Magnesium 2.1 C-Reactive Protein 5.60 H Discharge Plan Discharge Anticipated Discharge Date/Time: 04/12/24 10:30 Patient Disposition: Home, Self-Care Discharge Diagnosis: Status post small bowel resection secondary to small bowel obstruction with necrosis Referrals: Sohan Swain MD [Primary Care Provider] - 1 Week Discharge Medications: Continued clonazepam 0.5 mg tablet 0.5 mg PO DAILY PRN (Reason: Anxiety) tramadol 50 mg tablet 50 mg PO BEDTIME PRN (Reason: sleep/pain) citalopram 20 mg tablet 20 mg PO DAILY cevimeline 30 mg capsule 1 cap PO TID albuterol sulfate 90 mcg/actuation HFA aerosol inhaler 2 puff inhalation Q4-6H PRN (Reason: dyspnea) bupropion HCl 200 mg tablet sustained-release 12 hr 200 mg PO BID Changed levothyroxine [Synthroid] 150 mcg tablet 150 mcg PO DAILY Qty: 1 0RF Discontinued levothyroxine [Synthroid] 150 mcg tablet 300 mcg PO PEREZ Wegovy 1.7 mg/0.75 mL pen injector 1.7 mg subcut MO Discharge Orders: Discharge Order (Routine); Ordered 04/12/24 Ordered By: Vikas Herrera Activity on Discharge: No heavy lifting Stand Alone Forms: Patient Portal Discharge page Print Language: Persian Care Plan Goals: Recovery from small bowel obstruction Health Concerns: History of gastric bypass with acute small-bowel obstruction and subsequent volvulus with perforation and necrosis of small bowel requiring resection and primary anastomosis Plan of Treatment: No tub baths, showers, sex or returning to work until discussed at first post op appointment. No exercise, alcohol, tobacco or illegal drug use. Continue to use incentive spirometer hourly while awake. Walk in home for 5- 10 minutes every 2 hours during the first week. 1. Please call your doctor or come back to the emergency room should any new symptoms arise. 2. You will receive a courtesy call from [facility] 24-48 hours after discharge. 3. Activity: abstain from alcohol, practice limited stair climbing, no bending, no driving, no exercise, no illicit substances, no lifting, no sex, no tub bath, no work. 4. Diet: continue as discussed with Dr. Hannah. 2 and 1/2 ready to drink protein shakes daily such as Premier Protein 5. Dressing Change/Wound Care: Your incision is covered by dressing placed on the day of discharge, do not remove unless instructed to do so by your doctor. If the area is tender, you may apply an ice pack for short intervals (no more than 20 minutes on, followed by at least 20 minutes off). Do not apply heat. Do not use creams, lotions, or topical antibiotics unless instructed to do so by your surgeon. These can cause infection or allergic reaction. 6. Call your doctor if: - Your temperature exceeds 101.5 F - You experience excessive pain or swelling - You have an unexpected reaction to medication - You have excessive bleeding - You experience continued vomiting/nausea - Your incision begins to separate - Your incision shows signs of infection such as increased redness, swelling, excessive pain, heat, or drainage (light blood or clear fluid is normal) 7. General instructions: No lifting greater than 5 lbs for 1 week and not more than 20lbs the next 3?weeks. No driving until seen at the office in 5-7 days after surgery. If you do not move your bowels in the next 2 days, please tell?Dr. Hannah. Please walk around your home every hour or two to prevent blood clots from forming in your legs. You do not need to wake from sleeping to walk. Please sleep in a bed or couch to prevent kinking at the hips and knees. Please take your incentive spirometer (your lung film maker) home with you and use it for the next few days to prevent pneumonia. You may shower, no hot tubs, baths or swimming pools.?Please follow the post op diet instructions you are?given by Dr Hannah? and text me daily at 5-6pm for an update.?If you have any issues or concerns or questions please communicate this to him via text.? Do not take anything without first discussing with Dr Hannah. Do not hesitate to contact the office with any questions at . The patient's medical history has been reviewed and they are considered low risk for post op DVT and therefore DVT prophylaxis is not considered necessary. Travel after surgery was reviewed. The patient has not disclosed any travel plans during the first 30 days after surgery and they have been advised that within the first 30 days after surgery any bus, plane, train or car travel over 2 hours in duration is contraindicated due to the possibility of developing blood clots from immobility. Any travel, needs to include periods of ambulation of 10 minutes in duration every 2 hours.? The patient was instructed to discuss any plans for travel during this period with their bariatric surgeon. Assessment: stable s/p small bowel resection
--- NOTE | 2024-04-12 10:32 | MHC.CM.PN ---
PT WILL DC HOME TODAY WITH NO SERVICES VIA PRIVATE TRANSPORT
== END 2024-04-12 12:11 | disposition home or self-care (01) | DRG 230 ==
LOC: HO.ED 12:45 → HO.EDOVER 13:14 → HO.S3 13:46
PROVIDERS: Physician Assistant Surgical; Admitting Provider Surgery; Emergency Provider Emergency Medicine; PCP Internal Medicine; Visit Provider Surgery
PROC: 0DBA0ZZ Excision of Jejunum, Open Approach (ICD-10-PCS; CPT 49320; principal; 2024-04-05 13:00)
DX: K56.2 Volvulus (principal); K55.029 Acute infarction of small intestine, extent unspecified; E03.9 Hypothyroidism, unspecified; F32.A Depression, unspecified; K55.9 Vascular disorder of intestine, unspecified; E87.6 Hypokalemia; Z98.84 Bariatric surgery status; Z79.890 Hormone replacement therapy; Z79.899 Other long term (current) drug therapy
CPT/HCPCS: 36415; 71045; 74176; 80048; 80053; 81001; 83605; 83615; 83690; 83735; 84100; 85014; 85018; 85025; 86140; 86850; 86900; 86901; 87040; 88307; 99285; C1758; C9145; J0131; J0651; J0690; J1100; J1171; J1756; J2003; J2250; J2270; J2405; J2470; J2543; J2704; J2795; J3010; J3411; J3420; J3480; J7120

== ENCOUNTER → 2024-04-05 06:16 | Outpatient (BNV) | payer BC, SELFPAY | PROVIDERS: Emergency Provider Emergency Medicine; PCP Internal Medicine; Visit Provider Surgery | DX: K55.029 Acute infarction of small intestine, extent unspecified (principal); K91.89 Other postprocedural complications and disorders of digestive system | CPT/HCPCS: 44202; 99024; 99222; 99499 ==

== ENCOUNTER 2024-04-17 14:48 | Outpatient (AMB) | payer BC, SELFPAY ==
--- NOTE | 2024-04-17 14:52 | MHC.OFFVISWM ---
VS Expanded 04/17/24 15:05 BP 125/58 L Blood Pressure Location Rt brachial Blood Pressure Position Sitting Pulse 97 Pulse Source Pulse Oximeter Temp 97.9 F Temperature Source Temporal Artery Scan Pulse Oximetry 94 Oxygen Delivery Method Room Air Height 5 ft 3 in Weight 153 lb BMI 27.1 Body Fat % 34.9 Body Fat Mass 53.4 Fat Free Mass 99.4 Visceral Fat Rating 9.0 Body Water % 53.4 Body Water Mass 99.4 Muscle Mass/Score 94.4 Basal Metabolic Rate/Score 1,345 Intake Visit Reasons: (OV) F/U ER Necrosis SM/Intestine Allergies NSAIDS Allergy (Unknown, Uncoded 04/05/24 06:12) due to gastric bypass, can't take HPI Comments Details: 64 year old female who presented in the ER with a 30-hour onset of vomiting and mid-epigastric/LUQ abdominal pain. The patient has a history of laparoscopic Cat-en-Y gastric bypass about [address] Kelley at [facility]. The symptoms began after a meal with lasagna. She vomited initially the food and since then she is dry heaving and spitting small amounts of bilious material. Never had similar symptoms in the past. Has been on Wegovy last few months and she claims she lost 30 lbs Workup in the emergency room revealed free air within the abdomen suggestive of small-bowel perforation and she was brought emergently to the operating room on 04/05/2024. She underwent exploratory laparoscopy with ultimate laparotomy requiring small bowel resection with primary anastomosis. She was found to have an additional small bowel perforation which was repaired primarily by suture. She tolerated the procedure well. Remained on broad-spectrum IV antibiotics and NPO status for the next several days. Diet was advanced to clear liquids and then protein shakes which she tolerated well. She was discharged home from the hospital on 04/12/2024. Since being discharged home, she has done fairly well, drinking 2.5 ready to drink 30 g shakes per day. She denies any pain. She did have an episode of constipation which has since resolved. [facility] Medical History (Updated 04/11/24 @ 09:01 by JONY Elliott) DJD (degenerative joint disease) Anxiety Depression Surgical History (Updated 04/17/24 @ 15:03 by Mari Elaine CMA) Hx of breast reduction, elective History of knee replacement History of History of gastric bypass Social History Household Members: Spouse and Children Housing: House Do you presently have visiting nurse or other home services: No Alcohol intake: never Comment: benavidez catheter and NGT care Patient Tobacco Use Status: Never used Tobacco service: No Physical Exam GI Inspection: Yes incision (Flanagan intact. Clean, dry, intact.) Assessment & Plan Assessment & Plan (1) 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: Code(s): K91.89 - Other postprocedural complications and disorders of digestive system; K55.029 - Acute infarction of small intestine, extent unspecified Category: Medical Plan: Postop day 12, status post small bowel resection secondary necrosis secondary to volvulus with separate small bowel perforation repaired primarily. She is doing well overall. Tolerating her shakes without difficulty. Continue current treatment plans. Return to the office in 1 week.
[2024-04-17 15:05] VITALS: BP 125/58; PULSE 97; TEMP 36.6; O2SAT 94; BMI 27.1
--- OUTSIDE RECORDS SUMMARY | 2024-04-22 10:45 | XMS_ITS ---
Author Organization [facility] Address [address] [place] [address] Care Team Providers Care Entry Rep Name Role Phone Sohan Swain Primary Care Provider Unavailab Shira Buregss [phone] Encounters Encounter Location Date Provider Diagnosis [facility] [address] [place] [address] 10/29/2022 Shira Delarosa Plan Of Treatment No Information Progress Notes * Sonia BROWN MDOB: [birth year] (64 yo F)Acc No.[id number]:10/29/2022 Progress Notes Patient:?Sonia BROWN Luis Fernando Provider:?Shira Delarosa DPM :1960???Age:62 Y???Sex:Female D ate:10/29/2022 Address:[address] [place], [place] [id number] Pcp:Sohan Swain Subjective: * Chief Complaints: * ??? * Medical History:? Objective: * Vitals:? Assessment: Plan: * Treatment: * Images: * The named appointment provid er may or may not be the originator of this progress note, and it is not deemed complete until electronically signed by the appointment provider. Sign off status: Pending * Provider:?Shira Delarosa DPM Date:?2022 Generated for Jr ortiz/Katrin/eTransmitting on:?04/22/2024 10:44 AM EST
--- OUTSIDE RECORDS SUMMARY | 2024-04-22 10:45 | XMS_ITS | Patient Health Record ---
[facility] Address [address] [place] [address] Care Team Providers Care Drill Foreman Name Role Phone Sohan Swain Primary Care Provider Unavailab stephen Shira Delarosa Unavailable [phone] Allergies Allergen (clinical drug ingredient) Drug/Non Drug Allergy documented on EMR Reaction Allergy Type Onset Date Status aspirin Aspirin Unknown Drug Allergy Inactiv e Non-steroidal anti-inflammatory agent (FN) NSAIDs Unknown Drug Allergy Inactive Reason For Referral No Information Medications Medication SIG (Take, Route, Frequency, Duration) Notes Start Date End Date Status Levothyroxine Sodium 150 MCG as directed Orally Once a day Active Nightsplint . . . . for 30 days Active Citalopram Hydrobromide 20 MG 1 tablet Orally Once a day Active clonazePAM 0.5 MG as directed Orally PRN Active buPROPion HCl ER (SR) 75 mg Twic e a day Active Social History Tobacco Use: Social History Observation Description Date Details (start date - stop date) Former Smoker NA - NA Tobacco Use/Smoking Question Answer Notes Are you a: former smoker Additional Findings: Tobacco Non-User Current no n-smoker Tobacco use other than smoking: Question Answer Notes Are you an other tobacco user? No Problems Problem Type SNOMED Code ICD Code Onset Dates Problem Status W/U Status Risk Notes Problem Interstitial myositis (78640399) Interstitial myositis of right foot (M60.171) Active confirmed Plan Of Treatment No Information Insurance Providers Payer Name Payer Address Payer Phone Subscriber Number Group Number Insured Name Patient Relationship to Insured Coverage Start Date Coverage End Date [employer]ika [employer] Others [address] [place] [address] [id number] Sonia Kelly Self - patient is the insured Medical (General) History Medical History History ICD Code Anxiety Arthritis Back,Hip,and Knee pain Depression Hypothyroidism Chicken pox covid-19 Surgical History Surgery Date(Month/Year) 1999 1991 ovarian cyst removal 2000 gastric bypass 2003 Breast reduction 05/2017 right knee replacement 04/11/22
== END 2024-04-17 15:31 | disposition home or self-care (01) ==
PROVIDERS: PCP Internal Medicine; Visit Provider Physician Assistant Surgical
DX: K91.89 Other postprocedural complications and disorders of digestive system (principal); K55.029 Acute infarction of small intestine, extent unspecified
CPT/HCPCS: 99024

== ENCOUNTER 2024-04-24 08:31 | Outpatient (AMB) | payer BC, SELFPAY ==
--- OUTSIDE RECORDS SUMMARY | 2024-04-24 08:38 | XMS_ITS ---
Author Organization [facility] Address [address] [place] [address] Care Team Providers Care Tombstone Polisher Name Role Phone Sohan Swani Primary Care Provider Unavailab Shira Burgess [phone] Encounters Encounter Location Date Provider Diagnosis [facility] [address] [place] [address] 10/29/2022 Shira Delarosa Plan Of Treatment No Information Progress Notes * Sonia BROWN MDOB: [birth year] (64 yo F)Acc No.[id number]:10/29/2022 Progress Notes Patient:?Sonia BROWN Luis Fernando Provider:?Shira Delarosa DPM :1960???Age:62 Y???Sex:Female D ate:10/29/2022 Address:[address] [place], [place] [id number] Pcp:Sohan Swain Subjective: * Chief Complaints: * ??? * Medical History:? Objective: * Vitals:? Assessment: Plan: * Treatment: * Images: * The named appointment provid er may or may not be the originator of this progress note, and it is not deemed complete until electronically signed by the appointment provider. Sign off status: Pending * Provider:?Shira Delarosa DPM Date:?2022 Generated for Jr ortiz/Katrin/eTransmitting on:?04/24/2024 08:38 AM EST
--- OUTSIDE RECORDS SUMMARY | 2024-04-24 08:38 | XMS_ITS | Patient Health Record ---
[facility] Address [address] [place] [address] Care Team Providers Care Sales Merchandise Associate Name Role Phone Sohan Swain Primary Care Provider Unavailab stephen Shira Delarosa Unavailable [phone] Allergies Allergen (clinical drug ingredient) Drug/Non Drug [...] W/U Status Risk Notes Problem Interstitial myositis (26888982) Interstitial myositis of right foot (M60.171) Active confirmed Plan Of Treatment No Information Insurance Providers Payer Name Payer Address Payer Phone Subscriber Number Group Number Insured Name Patient Relationship to Insured Coverage Start Date Coverage End Date [employer] Others [address] [place] [address] [id number] Sonia Kelly Self - patient is the insured Medical (General) History Medical History History ICD Code Anxiety Arthritis Back,Hip,and Knee pain Depression Hypothyroidism Chicken pox covid-19 Surgical History Surgery Date(Month/Year) 1999 1991 ovarian cyst removal 2000 gastric bypass 2003 Breast reduction 05/2017 right knee replacement 04/11/22
[2024-04-24 08:52] VITALS: BP 117/57; PULSE 91; TEMP 36.7; O2SAT 96
--- NOTE | 2024-04-24 08:52 | MHC.OFFVISWM ---
VS Expanded 04/24/24 08:52 BP 117/57 L Blood Pressure Location Rt brachial Blood Pressure Position Sitting Pulse 91 Pulse Source Pulse Oximeter Temp 98.0 F Temperature Source Temporal Artery Scan Pulse Oximetry 96 Oxygen Delivery Method Room Air Intake Visit Reasons: (OV) F/U ER Necrosis SM/Intestine Allergies NSAIDS Allergy (Unknown, Uncoded 04/05/24 06:12) due to gastric bypass, can't take HPI Comments Details: 64 year old female who presented in the ER with a 30-hour onset of vomiting and mid-epigastric/LUQ abdominal pain. The patient has a history of laparoscopic Cat-en-Y gastric bypass about [address] Kelley at [facility]. The symptoms began after a meal with lasagna. She vomited initially the food and since then she is dry heaving and spitting small amounts of bilious material. Never had similar symptoms in the past. Has been on Wegovy last few months and she claims she lost 30 lbs Workup in the emergency room revealed free air within the abdomen suggestive of small-bowel perforation and she was brought emergently to the operating room on 04/05/2024. She underwent exploratory laparoscopy with ultimate laparotomy requiring small bowel resection with primary anastomosis. She was found to have an additional small bowel perforation which was repaired primarily by suture. She tolerated the procedure well. Remained on broad-spectrum IV antibiotics and NPO status for the next several days. Diet was advanced to clear liquids and then protein shakes which she tolerated well. She was discharged home from the hospital on 04/12/2024. Today is postop day 19 Since being discharged home, she has done well, drinking 2.5 ready to drink 30 g shakes per day. She denies any pain. She has no significant complaints today. [facility] Medical History (Updated 04/20/24 @ 00:02 by Ofe Rondon) Hypokalemia DJD (degenerative joint disease) Anxiety Depression Surgical History (Updated 04/24/24 @ 08:53 by Mari Elaine CMA) S/P small bowel resection Hx of breast reduction, elective History of knee replacement History of History of gastric bypass Social History Household Members: Spouse and Children Housing: House Do you presently have visiting nurse or other home services: No Alcohol intake: never Comment: benavidez catheter and NGT care Patient Tobacco Use Status: Never used Tobacco service: No Physical Exam Vital Signs: Last Vital Signs Temp 98.0 F 04/24/24 08:52 Pulse 91 04/24/24 08:52 BP 117/57 L 04/24/24 08:52 Pulse Ox 96 04/24/24 08:52 Oxygen Delivery Method Room Air 04/24/24 08:52 GI Inspection: Yes incision (Clean, dry, intact.) Assessment & Plan Assessment & Plan (1) S/P small bowel resection: Code(s): Z90.49 - Acquired absence of other specified parts of digestive tract Category: Surgical Plan: Ferney removed, incision is clean, dry, intact. Steri-Strips placed. She may shower, gently using soap and water, however no bath or submersion in water. She was told no abdominal exercises or heavy lifting x6 weeks postoperatively. We will have her return to the office in approximately 1 month. All questions were answered her satisfaction. Regarding her meal plan, she will discuss this with Dr. Hananh. Until then she will remain on 2.5 ready to drink shakes per day and a total of 70-80 oz of fluids daily
== END 2024-04-24 09:05 | disposition home or self-care (01) ==
PROVIDERS: PCP Internal Medicine; Visit Provider Physician Assistant Surgical
DX: Z90.49 Acquired absence of other specified parts of digestive tract (principal)
CPT/HCPCS: 99024

== ENCOUNTER 2024-05-02 08:11 | Outpatient (REF) | payer BC, SELFPAY ==
[2024-05-02 08:26] LABS: MANUAL DIFF FLAG NO
[2024-05-02 09:37] LABS: Basophils Percent Auto 0.7 % (0-2); Eosinophils Absolute Auto 0.1 X10*3/uL (0.0-0.4); Eosinophils Percent Auto 2.7 % (0-4); Hemoglobin 9.5 g/dl (12.0-16.0); Imm Gran Abs Auto 0.01 X10*3/uL (0.00-0.03); Imm Gran Pct Auto 0.2 % (0.0-0.4); Lymphocytes Percent Auto 24.6 % (20-40); Mean Corpuscular HGB Conc 30.6 g/dl (31.0-35.0); Mean Corpuscular Hemoglobin 28.2 pg (27.0-33.0); Mean Platelet Volume 9.5 fL (9.4-12.3); Monocytes Absolute Auto 0.4 X10*3/uL (0.1-1.2); Monocytes Percent Auto 10.8 % (2-11); Neutrophils Absolute Auto 2.5 x10*3/uL (2.0-8.3); Platelet Count 502 X10*3/uL (160-400); Red Blood Count 3.37 X10*6/uL (4.20-5.50); Red Cell Distribution Width 16.5 % (11.0-16.0); White Blood Count 4.1 X10*3/uL (4.8-10.8)
[2024-05-02 10:20] LABS: Iron 18 mcg/dL (30-160); Percent Iron Saturation 6 % (15-50); Total Iron Binding Capacity 300 mcg/dL (228-428); Unsaturated Iron Binding 282 ug/dL
[2024-05-02 10:36] LABS: Ferritin 57 ng/mL (10-250)
== END 2024-05-02 08:12 | disposition home or self-care (01) ==
LOC: HO.LAB 08:11
PROVIDERS: PCP Internal Medicine; Visit Provider Surgery
DX: K92.1 Melena (principal)
CPT/HCPCS: 36415; 82728; 83540; 85025

== ENCOUNTER 2024-05-25 12:45 | Outpatient (AMB) | payer BC, SELFPAY ==
--- NOTE | 2024-05-25 12:59 | MHC.OFFVISWM ---
VS Expanded 05/25/24 13:09 BP 114/57 L Blood Pressure Location Rt brachial Blood Pressure Position Sitting Pulse 87 Pulse Source Pulse Oximeter Temp 97.2 F Temperature Source Temporal Artery Scan Pulse Oximetry 95 Oxygen Delivery Method Room Air Height 5 ft 3 in Weight 143 lb 3.2 oz BMI 25.4 Body Fat % 25.9 Body Fat Mass 37.0 Fat Free Mass 106.0 Visceral Fat Rating 5.0 Body Water % 52.5 Body Water Mass 75.2 Muscle Mass/Score 100.8 Basal Metabolic Rate/Score 1,405 Intake Visit Reasons: (OV) F/U ER Necrosis SM/Intestine Allergies NSAIDS Allergy (Unknown, Uncoded 04/05/24 06:12) due to gastric bypass, can't take HPI Comments Details: 64 year old female who presented in the ER with a 30-hour onset of vomiting and mid-epigastric/LUQ abdominal pain. The patient has a history of laparoscopic Cat-en-Y gastric bypass about [address] Kelley at [facility]. The symptoms began after a meal with lasagna. She vomited initially the food and since then she is dry heaving and spitting small amounts of bilious material. Never had similar symptoms in the past. Has been on Wegovy last few months and she claims she lost 30 lbs Workup in the emergency room revealed free air within the abdomen suggestive of small-bowel perforation and she was brought emergently to the operating room on 04/05/2024. She underwent exploratory laparoscopy with ultimate laparotomy requiring small bowel resection with primary anastomosis. She was found to have an additional small bowel perforation which was repaired primarily by suture. She tolerated the procedure well. Remained on broad-spectrum IV antibiotics and NPO status for the next several days. Diet was advanced to clear liquids and then protein shakes which she tolerated well. She was discharged home from the hospital on 04/12/2024. Today is postop day 50 Since being discharged home, she has done well. She denies any pain. She has no significant complaints today. Meal plan: equatorial guinean Yogurt ensure plus fit crunch bar meal 4 forks protein and 4 forks veg fit crunch bar drinking 100 oz fluids. Exercise walking outside daily, 20 min REPLACED BY [facility] Medical History (Updated 05/02/24 @ 21:47 by Tevin Hannah MD) Hypokalemia DJD (degenerative joint disease) Anxiety Depression Surgical History S/P small bowel resection Hx of breast reduction, elective History of knee replacement History of History of gastric bypass Social History Household Members: Spouse and Children Housing: House Do you presently have visiting nurse or other home services: No Alcohol intake: never Comment: benavidez catheter and NGT care Patient Tobacco Use Status: Never used Tobacco service: No Physical Exam Skin Other: Well healed midline laparotomy incision Assessment & Plan Assessment & Plan (1) S/P small bowel resection: Code(s): Z90.49 - Acquired absence of other specified parts of digestive tract Category: Surgical Plan: Patient has done very well. She is now free of restriction. She did inquire about varying her meal plan to include separate items such as fish or other vegetables. She may certainly do so. Additionally, she inquired about soups, discussed that this is typically a higher salt food item and should be avoided. She may return to the office at any time should she have any additional problems
[2024-05-25 13:09] VITALS: BP 114/57; PULSE 87; TEMP 36.2; O2SAT 95; BMI 25.4
== END 2024-05-25 13:24 | disposition home or self-care (01) ==
PROVIDERS: PCP Internal Medicine; Visit Provider Physician Assistant Surgical
DX: Z90.49 Acquired absence of other specified parts of digestive tract (principal)
CPT/HCPCS: 99024

== ENCOUNTER → 2024-05-25 12:45 | Outpatient (BNVA) | payer BC, SELFPAY | PROVIDERS: PCP Internal Medicine; Visit Provider Physician Assistant Surgical ==

== ENCOUNTER 2025-03-18 15:23 | Outpatient (REF) | payer BC, SELFPAY ==
[2025-03-18 15:33] LABS: MANUAL DIFF FLAG NO
[2025-03-18 16:10] LABS: Hematocrit 32.5 % (37.0-47.0); Hemoglobin 9.5 g/dl (12.0-16.0); Imm Gran Abs Auto 0.02 X10*3/uL (0.00-0.03); Imm Gran Pct Auto 0.3 % (0.0-0.4); Lymphocytes Absolute Auto 1.7 X10*3/uL (1.2-4.9); Mean Corpuscular HGB Conc 29.2 g/dl (31.0-35.0); Mean Corpuscular Hemoglobin 21.1 pg (27.0-33.0); Mean Corpuscular Volume 72.2 fL (80.0-98.0); NRBC Abs Auto 0.000 X10*3/uL (0.0-0.012); NRBC Pct Auto 0.0 /100WBC (0.0-0.2); Platelet Count 569 X10*3/uL (160-400); Red Blood Count 4.50 X10*6/uL (4.20-5.50); White Blood Count 6.1 X10*3/uL (4.8-10.8)
[2025-03-18 16:51] LABS: Alanine Aminotransferase 27 U/L (0-31); Albumin Level 4.8 g/dL (3.5-5.0); Alkaline Phosphatase 70 U/L (39-117); Anion Gap 11 (12-20); Aspartate Amino Transferase 26 U/L (5-31); Blood Urea Nitrogen 20 mg/dL (9-16); Calcium 9.4 mg/dL (8.4-10.2); Carbon Dioxide 29 mmol/L (22-29); Chloride 104 mmol/L (96-108); Estimated Glomerular Filt Rate > 60; Iron 30 mcg/dL (30-160); Percent Iron Saturation 6 % (15-50); Potassium 4.2 mmol/L (3.3-5.1); Sodium 140 mmol/L (135-145); Total Iron Binding Capacity 481 mcg/dL (228-428); Total Protein 7.3 g/dL (6.5-8.0); Unsaturated Iron Binding 451 ug/dL
[2025-03-18 17:13] LABS: Ferritin 6 ng/mL (10-250)
[2025-03-18 17:16] LABS: Folate 11.5 ng/mL (> or = 4.0); Vitamin B12 671 pg/mL (200-900)
--- OUTSIDE RECORDS SUMMARY | 2025-03-18 18:16 | XMS_ITS | Clinical Summary ---
Author Organization Located Within [facility] Address [address] [place] [phone] Phone Care Team Providers Care Training Designer Name Role Phone Shoan Swain MD Unavailable [phone] Sohan Swain MD Primary Care Provider Sohan Swain MD Unavailable [phone] Allergies No known active allergies Medications clonazePAM (KLONOPIN) 0.5 MG tablet prn Active multivitamins capsule Take 1 capsule by mouth daily. Active buPROPion (WELLBUTRIN SR) 200 MG SR 12 hr tablet Take 200 mg by mouth 2 (two) times a day (once in the morning and once in the afternoon). 01/28/20 24 Active citalopram (CELEXA) 20 MG tablet Take 20 mg by mouth every morning. 12/12/19 24 Active SYNTHROID 150 mcg tabletIndications :Hypothyroid TAKE 1 TABLET DAILY EXCEPT 2 TABLETS ON SUNDAYS 102 tablet 3 06/15/19 25 Active pantoprazole (PROTONIX) 40 MG tablet Take 1 tablet by mouth every morning. 05/27/19 25 Active ondansetron (ZOFRAN-ODT) 4 MG disintegrating tabletIndications :Nausea Take 1 tablet (4 mg total) by mouth every 8 (eight) hours as needed for nausea. 18 tablet 01/15/20 25 Active diclofenac sodium (VOLTAREN) 1 % GelIndications:[place] pain of left knee Apply 4 g topically 4 (four) times a day. 100 g 04/03/20 21 2024 Discontinued(N o longer taking) gabapentin (NEURONTIN) 100 MG capsule Take 100 mg by mouth. 07/14/192024 Discontinued(N o longer taking) oxyCODONE 5 MG immediate release tablet Take 5 mg by mouth every 6 (six) hours as needed. 07/09/19 25 2024 Discontinued traMADoL (ULTRAM) 50 mg tablet 07/10/192024 Discontinued celecoxib (CELEBREX) 200 MG capsule Take 200 mg by mouth. 02/26/20 24 2024 Discontinued Active Problems Problem Noted Date Diagnosed Date Major depressive disorder, r ecurrent severe without psychotic features 02/28/2025 Assessment & Plan (02/28/2025 4:05 PM EDT): She is stable on bupropion. Will continue. Postoperative pain 02/09/2024 Assessment & Plan (02/09/2024 12:55 PM EDT): We discussed her upcoming TKR and options for pain management postoperatively as she wishes to avoid narcotics if possible. RADHA (obstructive sleep apnea) 09/02/2023 Overview (09/02/2023): now off CPAP since 12/21, back on CPAP 03/2023 Assessment & Plan (09/02/2023 10:41 PM EDT): She was hoping that restarting CPAP would assist with weight loss. Unfortunately, it has not. Depression 05/16/2020 Assessment & Plan (09/02/2023 10:40 PM EDT): She noted that Contrave was listed by her insurance company for weight loss and she is already on bupropion. We could consider adding naltrexone to this to try and aid with weight loss. Allergic rhinitis with postnasal drip 05/12/2018 Hypertrophy of breast 05/14/2017 Hypothyroidism 04/29/2017 Assessment & Plan (02/28/2025 4:05 PM EDT): Her last TSH was reviewed. Will continue levothyroxine. Assessment & Plan (02/09/2024 12:54 PM EDT): Will get updated TSH and adjust levothyroxine if indicated. Assessment & Plan (09/02/2023 10:36 PM EDT): This has been adequately replaced. Assessment & Plan (12/18/2022 8:42 PM EDT): Last TSH in normal range. Will continue levothyroxine. Class 2 obesity without seri ous comorbidity with body mass index (BMI) of 37.0 to 37.9 in adult Assessment & Plan (08/03/2024 9:13 PM EDT): She has maintained her weight loss since stopping Wegovy. Assessment & Plan (04/23/2024 2:50 PM EST): She had a good response to Wegovy. However, this was thought to be a contributor to her SBO. She will not be resuming this. Will monitor her weight. Assessment & Plan (02/09/2024 12:54 PM EDT): She has responded well to Wegovy. Will continue. Assessment & Plan (09/02/2023 10:40 PM EDT): We discussed her frustration with weight loss. She has failed gastric bypass, hypnosis, 1200 calorie diet and exercise. All attempts were at least 3 months of longer. She has discussed medication coverage with her insurance company. She is interested in GLP-1RA therapy. We discussed that if this is not covered, will consider another therapy such as Qsymia or adding naltrexone to bupropion. Assessment & Plan (12/18/2022 8:44 PM EDT): Se has had good weight loss and she will continue with this. Resolved Problems Problem Noted Date Diagnosed Date Resolved Date Daytime sleepiness 01/03/2023 4 Viral URI 04/08/2022 12/17/2022 Assessment & Plan (04/08/2022 10:16 PM EST): Patient with viral URI symptoms-sore throat, body aches. Likely viral URI-cannot rule out COVID/flu/cold at this time. Will check for COVID/flu. Swab sent today. Advised supportive care, continue monitoring for red flags. If worsening-should be seen in urgent care or ED for evaluation if during the holidays. Low suspicion for pneumonia or sinus infection at this time. Encounters Date Type Department Care Team Description 03/17/2025 Telephone [facility] Medicine [address] [place] [address] Vikas Vega MD Appointment (CPAP Compliance f/u) 02/24/2025 1:59 PM EDT - 02/24/2025 11:59 PM EDT Hospital Encounter [facility] [address] [place] [address] Sohan Swain MD Discharge Disposition: Home or Self Care 02/24/2025 1:15 PM EDT Office Visit [facility] [address] [place] [address] Sohan Swain MD Medicare annual wellness visit, initial (Primary Dx); Major depressive disorder, recurrent severe without psychotic features; Acquired hypothyroidism 02/12/2025 Orders Only [facility] [address] [place] [address] Sohan Swain MD from Last 3 Months Immunizations Immunization Administration Dates Next Due COVID-19 (Pre-03/04) Moderna Vaccine, Bivalent 6mo+ 02/14/2022 COVID-19 (Pre-03/04) Pfizer Vaccine, mRNA, PF 08/20/2020,07/30/2020 Hepatitis A, Adult 12/17/2022 Influenza High-Dose Trivalen t Preservative Free IM 02/24/2025,02/05/2024 Influenza Quadrivalent MDCK Preservative Free IM 02/17/2018 Influenza Quadrivalent Prese rvative Free IM 02/19/2023,02/14/2022,03/24/2021,01/02,02/17/2018,04/29/2017 Influenza, whole 03/06/2006 Pneumococcal conjugate PCV20 08/03/2024 Pneumococcal polysaccharide PPSV23 10/25/2009 Td, unspecified formulation 08/15/1997 Tdap 12/11/2021 Zoster recombinant 05/19/2018,12/16/2017 Family History Medical History Relation Comments Diabetes mellitus Father Diabetes mellitus Maternal Aunt 1 Breast cancer Maternal Aunt 2 CV disease Mother Breast cancer Paternal Aunt Cancer Sibling Breast cancer Sister 1 Colon polyps Sister 2 Bipolar disorder Sister 3 Relation Status Comments Daughter 1 Alive Daughter 2 Alive Father Maternal Aunt 1 Maternal Aunt 2 Mother (Age 96) Paternal Aunt Sibling Sister 1 Alive Sister 2 Alive Sister 3 Alive Sister 4 Alive Social History Tobacco Use Types Packs/Day Years Used Date Smoking Tobacco: Former Cigarettes Q uit: 1978 Smokeless Tobacco: Never Tobacco Cessation:Counseling Given: Not Answered Comments:Started smoking at 17 y/o and quit 1978, was a light smoker and smoked socially 2-3 cigarettes QD-noted 02/05/24 Alcohol Use Standard Drinks/Week Comments Not Currently 0 (1 standard drink = 0.6 oz pur e alcohol) rare, 4 drinks a year Child or Family Care Answer Date Record ed Do you have problems with on e of the following making it difficult for you to work, study, or receive health care? No 02/17/2025 Education Answer Date Recorded Are you interested in help w ith more adult education (for example, completing high school, GED, job training, learning the [place] language, technical skills, or developing parenting skills)? No 02/04/2024 Are you concerned about learning? Not on file 02/04/2024 No 02/04/2024 Yes 02/04/2024 Food Answer Date Recorded Within the past 6 months we worried whether our food would run out before we got money to buy more. Never True 02/17/2025 Within the past 6 months the food we bought just didn't last and we didn't have enough money to get more. Never True Residential Stability Answer Date Recor ded What is your housing situation today? I have julissa sing 02/17/2025 How many times have you move d in the past 12 months? Zero (I did not move) 02/17/2025 Paying for Meds Answer Date Recorded Do you have trouble paying for medicines? No 02/17/2025 Paying Utility Bills Answer Date Record ed Do you have trouble paying your heating or elect ricity bill? No 02/17/2025 Transportation Answer Date Recorded Has the lack of transportati on kept you from medical appointments or from getting medications? No 02/17/2025 Unemployment Answer Date Recorded Are you currently unemployed or working on a part-time or temporary basis, and looking for work? No 12/10/2021 Digital Access Answer Date Recorded No 02/17/2025 Yes 02/17/2025 Do you have reliable internet access at home? Ye s 02/17/2025 Do you have a device (e.g., phone, tablet, computer) with a working camera? Yes 02/17/2025 Intimate Partner Violence Answer Date R ecorded Denied Basic Needs Not on file 02/17/2025 In the past 12 months have y ou been in a relationship with a person who hurts, threatens, or tries to control you? No 02/17/2025 Worried food would run out Not on file 02/17 In the past 12 months have y ou been in a relationship with a person who hurts, threatens, or tries to control you? 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 file Not on file Not on file Last Filed Vital Signs Vital Sign Reading Time Taken Comments Blood Pressure 120/58 02/24/2025 1:20 PM EDT Pulse 78 02/24/2025 1:20 PM EDT Temperature 36 C (96.8 F) 08/03/2024 9:36 AM EDT Respiratory Rate 14 05/14/2017 3:45 PM EST Oxygen Saturation 96% 02/24/2025 1:20 PM EDT Inhaled Oxygen Concentration - - Weight 80 kg (176 lb 6.4 oz) 02/24/2025 1:20 PM EDT Height 158.5 cm (5' 2.4 ) 02/24/2025 1:20 PM EDT Body Mass Index 31.85 02/24/2025 1:20 PM EDT Plan of Treatment Upcoming Encounters Date Type Department Care Team (Late st Contact Info) Description 03/22/2025 3:30 PM EST Office Visit [address] [place] [address] Sohan Swain MD [address] [place] [address], [address] [place] [phone] 05/04/2025 1:00 PM EST Office Visit [facility] [address] [place] [address] Vikas Vega MD [address] [place] [address] 06/15/2025 9:15 AM EST Appointment [facility], Bone Density - [address] [address] Sohan Swain MD [address] [place] [address], [address] [place] [phone] Health Maintenance Due Date Last Done Comments COLOGUARD 01/23/2004 FIT TEST 01/23/2004 FOBT 01/23/2004 SIGMOIDOSCOPY 01/23/2004 VIRTUAL COLONOSCOPY 01/23/2004 OSTEOPOROSIS SCREENING INITIAL (ONE-TIME) 01/23/2024 COVID-19 VACCINE ( season) 2025 02/14/2022, 05/21/2021, 08/20/2020, Additional history exists DEPRESSION SCREENING 02/17/2026 02/17/2025 SMOKING Hx and SMOKELESS TOBACCO SCREENING 02/24/2026 02/24/2025 TSH LEVEL 02/24/2026 02/24/2025, 12/2023, 02/17/2024, Additional history exists MAMMOGRAM 02/10/2027 02/10/2025, 01/2024, 01/07/2023, Additional history exists SCREENING FOR DIABETES 02/25/2028 02/24/2025, 2020 COLONOSCOPY 12/16/2028 12/17/2023, 06/2018, 04/20/2013 COLORECTAL CANCER SCREENING 12/16/2028 LIPID PANEL 02/24/2030 02/24/2025, 11/2023, 02/17/2024, Additional history exists Adult Td,Tdap Booster 12/12/2031 12/11/2021, 998 RSV VACCINE (1 - 1-dose 75+ series) 2034 ZOSTER VACCINES Completed 05/19/2018, 12/16/2017 HEPATITIS A VACCINES Aged Out 12/17/2022 No long er eligible based on patient's age to complete this topic PNEUMOCOCCAL VACCINES (50+ years) Completed 08/03/2024, 10/25/2009 INFLUENZA VACCINE Completed 02/24/2025, , 02/19/2023, Additional history exists HIB VACCINES Aged Out No longer eligi ble based on patient's age to complete this topic MENINGOCOCCAL VACCINES (ACWY) Aged Out No longer eligible based on patient's age to complete this topic MENINGOCOCCAL VACCINES (B) Aged Out N o longer eligible based on patient's age to complete this topic Medical Devices Not on file Procedures Procedure Name Priority Date/Time Associated Diagnosis Comments LIPID PANEL Routine 02/24/2025 2:04 PM EDT Annual physical exam HEMOGLOBIN A1C Routine 02/24/2025 2:04 PM EDT Annual physical exam TSH WITH REFLEX Routine 02/24/2025 2:04 PM EDT Acquired hypothyroidism HM MAMMOGRAPHY Routine 02/10/2025 2:58 PM EDT COLONOSCOPY FOR RESULT ENTRY ONLY Routine 12/17/2023 12:09 PM EDT from Last 3 Months or Most Recently Relevant to Health Maintenance Results * TSH with reflex (02/24/2025 2:04 PM EDT) TSH 2.64 0.27 - 4.20 uIU/mL [facility] Blood 02/24/2025 2:04 PM EDT 02/24/2025 2:31 PM EDT us Sohan Swain MD LAB BLOOD BKR ORDERABLES Fi nal Result Performing Organization Address City/[facility]/ZIP Co de Phone Number [address] [address] * Hemoglobin A1c (02/24/2025 2:04 PM EDT) HEMOGLOBIN A1C 5.7 4.3 - 5.8 % [facility] Blood 02/24/2025 2:04 PM EDT 02/24/2025 2:31 PM EDT Sohan Swain MD LAB BLOOD BKR ORDERABLES Fi nal Result Performing Organization Address City/[facility] Co de Phone Number [address] [phone] * (ABNORMAL) Lipid panel (02/24/2025 2:04 PM EDT) HDL 83 mg/dL [facility] Comment: Interpretation <40 mg/dL: Low HDL cholesterol (major risk factor for CHD) Greater than or equal to 60 mg/dL: High HDL cholesterol ( negative risk factor for CHD) HDL - cholesterol is affected by a number of factors, e.g. smoking, excerise, hormones, sex and age. CHOLESTEROL 225 0 - 240 mg/dL [facility] TRIGLYCERIDES 107 30 - 160 mg/dL [facility] LDL 121 50 - 129 mg/dL [facility] Comment: LDL levels in terms of risk for coronary heart disease: <100 mg/dL: Optimal 100-129 mg/dL: Near or above optimal 130-159 mg/dL: Borderline high 160-189 mg/dL: High >190 mg/dL: Very High CARDIAC RISK RATIO 2.7(L) 3.3 - 4.4 [facility] Blood 02/24/2025 2:04 PM EDT 02/24/2025 2:31 PM EDT us Sohan Swain MD LAB BLOOD BKR ORDERABLES Fi nal Result [facility] [address] [place] [address] * [facility] MAMMOGRAPHY FOR RESULT ENTRY ONLY (02/10/2025 2:58 PM EDT) us Sohan Swain MD HEALTH MAINTENANCE Edited R esult - Final * [facility] COLONOSCOPY FOR RESULT ENTRY ONLY (12/17/2023 12:09 PM EDT) us Unknown Unknown HEALTH MAINTENANCE Final Resu lt from Last 3 Months or Most Recently Relevant to Health Maintenance [place] [address] [place] [address] MEDEX SUPPLEMENT MEDICARE PART A & B BLUE CROSS MEDEX SUPPLEMENT MEDICARE PART A & B [employer]UE [employer]OSS MEDEX SUPPLEMENT BLUE CROSS MEDEX SUPPLEMENT Net Transmit & Receive MEDEX SUPPLEMENT MEDICARE PART A & B Net Transmit & Receive MEDEX SUPPLEMENT Net Transmit & Receive MEDEX SUPPLEMENT MEDICARE PART A & B Net Transmit & Receive MEDEX SUPPLEMENT MEDICARE PART A & B [facility] MEDEX SUPPLEMENT MEDICARE PART A & B Advance Directives For more information, please contact: [phone] (9AM - 5PM [facility], Saturday-Saturday) Documents on File Type Date Recorded 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 05/15/2017 10:26 AM * Full Code (Presumed) (Latest Code Status on File) Date Activated Date Inactivated Comments 05/14/2017 9:49 AM 05/14/2017 7:53 PM Care Teams Training Designer Relationship Specialty Start Date End Date Sohan Swain MD [address] [place] [address], [address] [place] [phone] [email or web address] PCP - General 04/11/17 Sohan Swain MD [address] [place] [address], [address] [place] [phone] Historical LMR Provider 03/03/17 Sohan Swain MD [address] [place] [address], [address] [place] [phone] [email or web address] Insurance Assigned Provider 08/17/23 Additional Source Comments The information contained in this document represents components of the legal health record. It is not the complete legal health record.Located Within [facility]
--- OUTSIDE RECORDS SUMMARY | 2025-03-18 18:16 | XMS_ITS | Data Portability ---
Author Organization [facility], [facility] Address [address] [place] [address] Care Team Providers Care First Press Operator Name Role Phone EYAD PALUMBO Primary Care Provider Assessment Encounter Date Assessment Date Assessment LastModified by Organization Details LastModified Time 06/11/2024 06/11/2024 PROBLEM: Status post Left total knee arthroplasty performed on 02/25/24 HPI: Patient returns today for follow-up of their total knee arthroplasty. They report they have returned to most activities of daily living. The patient has no specific concerns today in the office. They have completed outpatient physical therapy. The patient's postoperative course was complicated by the need for colon resection in 6 weeks. Patient is actually satisfied that she is making good progress at this point. Past family, medical, social history and review of systems has been reviewed, updated and is located in the patient s chart. EXAM: The patient ambulates with a non-antalgic gait. The surgical wound is well-healed. There is no erythema, redness, or signs of infection. Left knee range of motion 0-130 . There is no significant sub-patellar crepitus. There is expected postoperative swelling but no significant effusion. The knee is stable to varus and valgus loading at 0 and 90 without evidence of significant instability. IMAGING: Previously obtained X-rays reviewed in the office today [facility]: Weightbearing AP of both knees, lateral of the left knee, and sunrise view of both knees demonstrate; Show appropriate position of the patient's left total knee arthroplasty. Overall limb alignment is neutral. Implant position is satisfactory. Patellar tracking is midline. Bone implant interfaces are intact and no evidence of fracture or osteolysis IMPRESSION: Status post Left total knee arthroplasty PLAN: At this point, the patient is doing extremely well following their total knee arthroplasty. I encouraged them to continue a home exercise and walking program. We discussed activity modification, dental prophylaxis, and the importance of long-term follow-up. I encouraged them to return to the office periodically for routine follow-up; sooner if any issues arise. I attempted to answer all of their questions today in the office. Snapchat speech recognition round cutter operator software was used to create portions of this document. An attempt at proofreading has been made to minimize errors. Please call for corrections. [email or web address] Not available 06/11/2024 14:05:21 Plan of Treatment Reminders Order Date Submit Date Provider Last Modified By Organization Details Last Modified Time Details Appointments None recorded. Lab None recorded. Referral physical therapist referral - continue pt/ HEP 2-4 times/sat- pt/saul bravo discretio n 2024 025 7 [facility]), [address], [place], [address], 5 17:17:09 physical therapist referral - continue AAROM, AROM, PROM. Start strengthe mitch After 3 months if rom/ mechanics adequate 2024 025 [email or web address] 7 [facility]), [address], [place], [address], 5 16:46:14 Procedures None recorded. Surgeries None recorded. Imaging None recorded. Medication Orders None recorded. Patient TargetsNo targets recorded. Patient InstructionsNo instructions recorded. Reason for Referral Physical Therapist Referral for Nontraumatic complete rupture of rotator cuff of right shoulder continue AAROM, AROM, PROM.Start strengthening After 3 months if rom/ mechanics adequate Referring Physician: Terrell Varma, Orthopedic Surgery, Encounter Date: 09/24/2024 Physical Therapist Referral for Nontraumatic complete rupture of rotator cuff of right shoulder continue pt/ HEP2-4 times/month- pt/patient discretion Referring Physician: Terrell Varma, Orthopedic Surgery, Encounter Date: 11/03/2024 Results Created Date Observation Date Name Description Value Unit Range Abnormal Flag Note LastModifiedBy Organization Detail LastModifiedTime 05/19/19 25 05/18/2024 MRI, shoul ashley, w/o contr ast No observ ation record ed. [email or web address] [facility] [address] [place] [address], [place], [address], 05/19/2024 10:56:02 05/19/19 25 05/18/2024 MRI, shoul ashley, w/o contr ast No observ ation record ed. [email or web address] [facility] [address], [place], [address], 05/19/2024 10:56:03 Result Notes None recorded. Problems Name Problem SNOMED Code Status Onset Date Resolution Date Notes Provider Name and Address Organization Details Recorded Time No complaints [id number] Active Status : 'A'; Not Available [facility] 4 09:22:05 Osteoarthr itis of left knee joint 3561451217461 09 Active 2023 Onur Thayer MD [address], [place], [address] , [facility] 4 07:57:06 Bilateral shoulder joint pain 4109539281502 9104 Active 2023 DORIE lang [facility] 4 13:25:45 Bilateral impingemen t syndrome of shoulders 3578312992964 9103 Active 2023 DORIE lang [facility] 4 13:53:12 Postoperat bijan pain 655709015 Active 2024 Terrell Varma MD [address], [place], [address] , [facility] 5 11:40:01 Nontraumat ic complete rupture of rotator cuff of right shoulder 5203242079834 100 Active 2024 KAYLIA L'HEUREUX precious [facility] 5 09:06:27 Problem Notes None recorded. Procedures Surgical History Date Name Laterality Status Provider Name and Address Organization Details Recorded Time 4 Sports Shoulder Bilateral completed Terrell Varma MD [address] [facility] [address], [place], [address], [facility] 12/27/2023 18:13:09 4 Sports Knee 4&1 completed Washington Llanos PA-C [address], [place], [address], [facility] 10/17/2023 07:35:31 3 Knee Surgery completed [facility] 12/27/2023 13:23:44 Bariatric Surgery completed [facility] 12/27/2023 13:23:44 Other completed [facility] 12/27/2023 13:23:44 Imaging Results None recorded. Procedure Notes None recorded. Medical Equipment None Reported. Allergies No known drug allergies Medications Name Sig Start Date Stop Date Status Note LastModified by Organization Details LastModified Time Prescriptio n - Prior Authorizati on Request active Not Available Not Available N ot Available celecoxib 200 mg capsule TAKE 1 CAPSULE BY MOUTH EVERY DAY 03/26 completed Not Available Not Available Not Available amoxicillin 500 mg capsule 4 pills 1 hour prior to procedure 06/11 completed Not Available Not Available Not Available Synthroid 150 mcg tablet TAKE 1 TABLET DAILY EXCEPT 2 TABLETS ON SUNDAYS active Not Available Not Available No t Available clonazepam 0.5 mg tablet active Not Available Not Available Not Available tramadol 50 mg tablet TAKE 1 TABLET BY MOUTH EVERY 8 HOURS FOR PAIN active Not Available Not Available No t Available amoxicillin 500 mg tablet TAKE 4 TABLETS 1 HOUR PRIOR TO DENTAL APPT active Not Available Not Available No t Available citalopram 20 mg tablet TAKE 1 AND 1/2 TABLETS DAILY active Not Available Not Available No t Available diazepam 2 mg tablet TAKE 1 TABLET BY MOUTH THREE TIMES A DAY FOR 7 DAYS 06/11 completed Not Available Not Available Not Available benzonatate 100 mg capsule TAKE 2 CAPSULES BY MOUTH 3 TIMES A DAY NEEDED FOR COUGH FOR 7 DAYS 10/16 completed Not Available Not Available Not Available pantoprazol e 40 mg tablet,jose francisco craft release Take 1 tablet every day by oral route. 2024 active Not Available Not Available Not Avai lable cevimeline 30 mg capsule TAKE 1 CAPSULE BY MOUTH THREE TIMES A DAY 06/11 completed Not Available Not Available Not Available prednisone 50 mg tablet TAKE 1 TABLET BY MOUTH EVERY DAY FOR 5 DAYS 10/16 completed Not Available Not Available Not Available bisacodyl 5 mg tablet,jose francisco yed release TAKE 4 TABLETS BY MOUTH ONCE DIRECTED FOR 1 DAY 06/11 completed Not Available Not Available Not Available gabapentin 100 mg capsule TAKE 1 CAPSULE BY MOUTH THREE TIMES A DAY active Not Available Not Available No t Available methylpredn isolone 4 mg tablets in a dose pack 03/26 completed Not Available Not Available Not Available albuterol sulfate HFA 90 mcg/actuati on aerosol inhaler TAKE 2 PUFFS INHALATIO N EVERY 4-6 HOURS NEEDED FOR DYSPNEA 10/10 completed Not Available Not Available Not Available ondansetron 4 mg disintegrat ing tablet TAKE 1 TABLET BY MOUTH EVERY 8 HOURS NEEDED FOR NAUSEA active Not Available Not Available No t Available naproxen 500 mg tablet TAKE 1 TABLET BY MOUTH TWICE A DAY 2023 active Not Available Not Available Not Avai lable oxycodone 5 mg tablet TAKE 1 TABLET EVERY 8 HOURS BY ORAL ROUTE NEEDED, FOR SEVERE POST OP PAIN. 11/03 completed Not Available Not Available Not Available bupropion HCl SR 200 mg tablet,12 hr sustained-r elease TAKE 1 TABLET TWICE A DAY active Not Available Not Available No t Available azithromyci n 500 mg tablet TAKE 1 TABLET BY MOUTH EVERY DAY FOR 3 DAYS 10/16 completed Not Available Not Available Not Available GaviLyte-G 236 gram-22.74 gram-6.74 gram-5.86 gram oral solution TAKE DIRECTED 03/26 completed Not Available Not Available Not Available Eliquis 2.5 mg tablet TAKE 1 TABLET BY MOUTH TWO TIMES A DAY 06/11 completed Not Available Not Available Not Available Vitron-C 65 mg iron-125 mg tablet,jose francisco yed release TAKE 1 TABLET BY MOUTH EVERY DAY SWALLOW WHOLE. DO NOT CHEW/MIRA K/DISSOLV E/OPEN active Not Available Not Available No t Available Wegovy 2.4 mg/0.75 mL subcutaneou s pen injector 06/11 completed Not Available Not Available Not Available Wegovy 1.7 mg/0.75 mL subcutaneou s pen injector INJECT 0.75 ML (1.7 MG TOTAL) UNDER THE SKIN EVERY 7 DAYS 06/11 completed Not Available Not Available Not Available Wegovy 1 mg/0.5 mL subcutaneou s pen injector INJECT 0.5 ML (1 MG) UNDER THE SKIN EVERY 7 DAYS 06/11 completed Not Available Not Available Not Available semaglutide (weight loss) 0.5 mg/0.5 mL subcutaneou s pen injector Inject 5 mg every week by sub-q route. 06/11 completed Not Available Not Available Not Available Wegovy 0.25 mg/0.5 mL subcutaneou s pen injector 10/16 completed Not Available Not Available Not Available Vitals Date Recorded Body height Body mass index (BMI) Body weight Provider Name and Address Organization Details Last Updated DateTime 05/21/2024 159.385 cm 29.8 kg/m2 72335.93 g Chuyita yo [facility] 05/21/2024 07:57:58 Date Recorded Body height Body mass index (BMI) Body weight Provider Name and Address Organization Details Last Updated DateTime 06/11/2024 159.385 cm 29.8 kg/m2 27251.93 g Marybeth Calero [facility] 06/11/2024 13:32:51 Date Recorded Body height Body mass index (BMI) Body weight Provider Name and Address Organization Details Last Updated DateTime 07/24/2024 159.385 cm 29.8 kg/m2 20293.93 g VIVIAN AKBAR [facility] 07/24/2024 10:14:21 Date Recorded Body height Body mass index (BMI) Body weight Provider Name and Address Organization Details Last Updated DateTime 09/24/2024 159.385 cm 29.8 kg/m2 46178.93 g Terrell Varma MD [address] [place] [address] [address], [place], [address], [facility] 09/24/2024 08:35:49 Date Recorded Body height Body mass index (BMI) Body weight Provider Name and Address Organization Details Last Updated DateTime 11/03/2024 159.385 cm 29.8 kg/m2 23026.93 g Chuyita boylelinda [facility] 11/03/2024 08:37:51 Social History Question Answer Notes LastModified by Organizat ion Details LastModified Time Tobacco Smoking Status Former Smoker DORIE SOFIA lang [facility] 12/27/2023 13:23:41 When Did You Quit Smoking? 16+yearssinc elastcigaret te [email or web address] Information not available 12/27/2023 What Is Your Relationship Status? Information not available 10/17/2023 How Many Years Have You Smoked Tobacco? 3 [email or web address] Information not available 12/27/2023 Sex: Unknown Functional Status Question Answer Note LastModified by Organizat ion Details LastModified Time How many times per week do you consume alcohol? Less than 1 time per week [email or web address] Information not available 12/27/2023 Do you use any illicit or recreational drugs? No Information not available 10/17/2023 Do you or have you ever used any other forms of tobacco or nicotine? No Information not available 10/17/2023 What is your level of alcohol consumption? None Information not available 10/17/2023 Do you or have you ever used e-cigarettes or vape? Never used electronic cigarettes [email or web address] Information not available 12/27/2023 Mental Status None recorded. Family History Nothing Reported. Medical History Condition Response Allergies/Hayfever N Coronary Artery Disease N Breathing or lung disorders N Anxiety/Depression Y Emphysema N Nerve Disorders N Thyroid Problems Y COPD N Pacemaker N Kidney/Bladder Problems N Anemia N Vascular Disease N Heart Trouble N Gastrointestinal Disease N Heart Attack ([place]) N Cholesterol N Diabetes N Autoimmune disease N Bleeding Disorder N Orthotics N Arthritis Y Seizures/Epilepsy N Blood Clot N AIDS/HIV N Congestive Heart Failure (CHF) N Acid Reflux (GERD) N Cancer N Stroke N Asthma N Circulation Problems N Peripheral Vascular Disease N Sleep Apnea Y Hepatitis N Heart Disease N Rheumatoid Arthritis N Arrhythmia N Pulmonary Embolism N Headaches N Fibromyalgia N Hypertension N Osteoporosis N Gynecological HistoryNo gynecological history recorded. Obstetrics History GPAL:G 0 P 0 0 0 0 Past Encounters Encounter ID Performer Location Encounter Start Date Encounter Closed Date Diagnosis/Indication Diagnosis SNOMED-CT Code Diagnosis ICD10 Code Diagnosis IMO Codes Diagnosis Note [id number] Onur Thayer MD [facility] [address] [place] [address] 10/10/2023 08:48:35 11/08/2023 12:59:59 Pain of left knee joint 0685808933 57988 M25.959 [id number] Washington Llanos PA-C [facility] [address] [place] [address] 10/17/2023 09:20:31 11/25/2023 10:52:07 Osteoarthritis of left knee joint 6083763625 96497 M17.12 [id number] Terrell Varma MD [facility] [address] [place] [address] 12/27/2023 13:16:46 01/21/2024 10:21:10 Bilateral shoulder joint pain 8315145964 8597831 M25.511 M25.512 Bilateral impingement syndrome of shoulders 0954695805 3441993 M75.41 M75.42 [id number] Sundar Mead NP [facility] [address] [place] [address] 02/19/2024 13:24:30 03/14/2024 03:58:55 [id number] Onur Thayer MD [facility] [address] [place] [address] 02/19/2024 15:32:27 03/14/2024 03:58:55 [id number] Raul Cota PA-C [facility] [address] [place] [address] 03/10/2024 13:15:18 04/03/2024 09:23:20 History of total knee arthroplasty 2736090467 105 Z96.652 58408951 Pain of le ft knee joint 4241518198 38578 M25.562 [id number] ELEN Akins [address] [place] [address] 03/26/2024 14:33:19 04/27/2024 14:32:18 Aftercare 939949996 Z51.89 Implantati on of joint prosthesis 34920136 Z47.1 [id number] MD Carolyn [facility] [address] [facility] [place] [address] 05/07/2024 09:27:01 05/27/2024 17:02:15 Pain of left shoulder joint 9398663417 4832333 M25.512 797564 Pain of ri ght shoulder joint 2764513279 7778052 M25.511 210700 Bilateral chronic pain of upper limbs 8949036526 6521766 M25.511 M25.512 G89.29 [id number] MD JOSE ARMANDO [facility] [address] [facility] [place] [address] 05/21/2024 07:51:24 06/05/2024 10:48:46 Right rotator cuff syndrome 3911463575 20731 M75.420 5302237 Nontraumat ic complete rupture of rotator cuff of right shoulder 5562972092 804655 M75.121 [id number] [facility] [address] [place] [address] 06/11/2024 13:25:35 06/22/2024 08:36:50 History of left total knee replacement 1539086841 937364 Z96.652 [id number] MD JOSE ARMANDO [facility] [address] [place] [address] 07/24/2024 10:08:33 08/14/2024 08:00:43 Nontraumatic complete rupture of rotator cuff of right shoulder 0659666262 904690 M75.121 [id number] MD JOSE ARMANDO [facility] [address] [facility] [place] [address] 09/24/2024 08:20:56 10/07/2024 15:19:53 Nontraumatic complete rupture of rotator cuff of right shoulder 3373407380 531162 M75.121 [id number] Terrell Varma MD [facility] [address] [place] [address] 11/03/2024 08:31:30 11/21/2024 08:11:57 Nontraumatic complete rupture of rotator cuff of right shoulder 7570849807 008805 M75.121 [id number] Health Concerns Section Related Observation LastModified by Organization Detai ls LastModified Time None Recorded Concern Status LastModified by Organization Details LastModified Time None Recorded Advance Directives Directive None Recorded Payers Insurance Date Sequence Insurance Name Policy Number Policy [place] Covered Member ID [place] Member ID Guarantor Name 11/21/2024 1 BCAMANDA-BRIANNA (PPO) [id number] Sonia Gould Robin [id number] Sonia Kelly Notes Date Note Type Note Provider Name and Address Organization Details Recorded Time text/html Chief complaint: Bilateral shoulder painInterval history: Patient here today to review MRI results bilateral shoulders. Continues to have bilateral shoulder pain right greater than left. To recap last visit May 07, 2024: Patient following up today for bilateral shoulder pain. She was last seen for this condition in December 2023. Bilateral corticosteroid injections were administered and she was referred to physical therapy. Patient reports the injections were somewhat helpful however her pain has recurred. Complains of bilateral shoulder pain right greater than left. She rates her pain level 8 out of 10. Pain aggravated with shoulder activity. Also has some mild neck pain without radicular symptoms. History of gastric bypass and has been instructed to avoid NSAIDs. To recap last visit December 27, 2023: Patient is a 63-year-old female here today for chief complaint of bilateral shoulder pain. Patient reports symptoms have been present for approximately 1 year. No injury history or inciting episode. Right side slightly more painful than the left. Reports pain worsens with overhead motion. She denies any neck pain or radicular symptoms. She has had some mild sleep disturbances and pain laying on her side. Patient scheduled for upcoming total knee arthroplasty in the fall. She has not had any previous physical therapy or injections. SIDE: RightGENERAL: Appears comfortable.INSPECTION: No muscle atrophy. Normal deltoid contour. No shoulder rounding/scapular protractionPALPATION: Positive AC joint tenderness. No Bicipital Groove tendernessNECK EXAM: Full flexion and extension. Negative Spurling s UPPER EXTREMITY NEUROVASCULAR EXAM: No motor or sensory deficitsACTIVE/PASSIVE ROM: Pseudoparalysis with forward elevation. Positive drop arm. Active external rotation 60 degrees, internal rotation L4. Full passive range of motion with pain through range of motion.ROTATOR CUFF TESTING: Supraspinatus strength testin/5. Infraspinatus strength testin/5. Subscapularis Strength Testin/5NEER: PositiveHAWKINS: PositiveOBRIEN: PositiveANTERIOR/POSTERIO R LOAD AND SHIFT: NegativeSULCUS: Negative CONTRALATERAL SIDE: LeftROM full, 4/5 strength, No atrophy. No evidence of instability of the shoulder. Positive impingement signs. Negative AC joint tenderness. Negative Speed's, positive O'Briens, positive Jazzy. X-rays 8 views previously obtained and personally reviewed today AP internal/external, scapular Y, axillary views shoulder demonstrate:Right: Maintained glenohumeral joint space. Mild AC joint arthritis. Type II acromion. No fractures. No calcificationsLeft: Maintained glenohumeral joint space. Mild AC joint arthritis. Type II acromion. No fractures. No calcifications MRI right shoulder obtained on May 18, 2023, images and report independently reviewed: Full-thickness supraspinatus tear extending to infraspinatus with retraction to the mid humeral head. Advanced AC joint arthritis. Mild atrophy supraspinatus and infraspinatus. Edema adjacent to the biceps tendon. MRI left shoulder obtained on May 18, 2023, images and report independently reviewed: AC joint arthritis, partial-thickness bursal sided tear posterior supraspinatus/anterior infraspinatus with edema at the greater tuberosity. Impression: Right shoulder rotator cuff tearPlan:Reviewed diagnosis with the patient today. Patient presenting with ongoing shoulder pain despite treatment clued in physical therapy and injection. On examination does demonstrate pseudoparalysis, severe weakness with forward elevation. treatment options including steroid injections, physical therapy, activity modification, anti-inflammatory medication, or surgical intervention discussed. Proposed procedure: Right shoulder: Diagnostic arthroscopy, subacromial decompression, rotator cuff repair, possible biceps tenodesis. Discussed natural history of full-thickness rotator cuff tears which typically enlarge and become more symptomatic over time. We reviewed the nature of the procedure, reasonable expectations, anticipated rehabilitation timeline, and restrictions. Risks, benefits, and alternatives of the procedure were discussed at length with the patient. Risks discussed included but were not limited to bleeding, infection, damage to neurovascular structures, pain after surgery, incomplete or temporary symptom relief, inability to return to previous level of activity, shoulder stiffness, rotator cuff retear, medical and anesthesia related complications, and thromboembolic events. There may be permanent functional limitations after rotator cuff repair. Patient had a chance to have all questions answered today. Patient requests moving forward with surgical scheduling. Patient will benefit from an ultrasound guided pre-operative nerve block for post operative pain control. It will limit the anesthetic needs during surgery and will aid in discharge from the PACU in a timely fashion. Anesthesia will be consulted for the procedure. The patient will be provided a shoulder sling/immobilizer. This will be medically necessary to support and protect the shoulder after surgery. Terrell Varma MD [address] [place] [address] [address], [place], [address], [facility] 05/21/2024 10:32:28 5 text/html Surgery: Right shoulder arthroscopic rotator cuff repair, subacromial decompression, distal clavicle excision, debridement July 13hief complaint: Postop visitHPI: Patient here today for postop visit for above mentioned procedure. Patient reports they are doing well. Pain has been well-controlled. Patient compliant with brace use and post op restrictions. Physical exam Patient appears comfortable, no distressShoulder arthroscopic portal incisions clean, dry, intact. Resolving ecchymosisSoft compressible compartments.Neurovascula rly intact distallyShoulder ROM testing: DeferredPain free passive hand, elbow, wrist ROM Intraoperative Findings: High-grade partial-thickness upper border subscapularis tear s full-thickness, retracted U-shaped tear of supraspinatus and anterior infraspinatus repaired with double row construct. Significant osteoporosis suspected given multiple anchors pulling out. Plan: Reviewed the procedure and intraoperative findings with the patient today. Post op restrictions and rehab plan discussed today.Patient instructed to remain in shoulder immobilizer unless for hygiene and home exercises. Continue with hand, elbow, wrist ROM, pendulums. Begin PT Week 3, 2 times per week for Rotator cuff repair post op protocol. Patient will follow up in 5 weeks. At next visit the plan will be to progress to Phase 2 physical therapy starting AAROM/AROM. All questions answered today. She also has follow-up scheduled with her PCP for evaluation for osteoporosis. Terrell Varma MD [address], [place], [address], [facility] 07/24/2024 12:15:36 5 text/html Surgery: Right shoulder arthroscopic rotator cuff repair, subacromial decompression, distal clavicle excision, debridement July 13hief complaint: Postop visitHPI: Patient here today for postop visit for above mentioned procedure. Patient reports they are doing well. Pain has been well-controlled. Patient compliant with brace use and post op restrictions.Interval history September 24, 2024: Patient here today approximately 10 weeks out from surgery. She has been attending physical therapy. She reports her pain has been well-controlled. Still fairly limited in respect to her shoulder range of motion. Recently started active range of motion exercises. She has been taking oxycodone just before therapy. Physical exam Patient appears comfortable, no distressArthroscopic portal incisions well-healedSoft compressible compartments.Neurovascula rly intact distallyShoulder ROM testing: Active forward elevation to 80 degrees, external rotation 40 degrees. Passive range of motion with forward elevation to 130 degrees and external rotation 60 degrees 4+/5 strength rotator cuff testing with slightly altered mechanics.Pain free passive hand, elbow, wrist ROM Intraoperative Findings: High-grade partial-thickness upper border subscapularis tear s full-thickness, retracted U-shaped tear of supraspinatus and anterior infraspinatus repaired with double row construct. Significant osteoporosis suspected given multiple anchors pulling out. Plan:Recommend patient continue with physical therapy focusing on range of motion exercises. Recently started active range of motion. Typically start strengthening around 12 weeks if appropriate mechanics and range of motion goals obtained. Slightly behind typical recovery course in respect to her range of motion but would anticipate she continues to make slow, gradual progress with further PT. Follow-up scheduled for another 6 weeks. Terrell Varma MD [address], [place], [address], [facility] 09/24/2024 12:45:46 5 text/html Surgery: Right shoulder arthroscopic rotator cuff repair, subacromial decompression, distal clavicle excision, debridement July 13hief complaint: Postop visitHPI: Patient here today for postop visit for above mentioned procedure. Patient reports they are doing well. Pain has been well-controlled. Patient compliant with brace use and post op restrictions.Interval history September 24, 2024: Patient here today approximately 10 weeks out from surgery. She has been attending physical therapy. She reports her pain has been well-controlled. Still fairly limited in respect to her shoulder range of motion. Recently started active range of motion exercises. She has been taking oxycodone just before therapy.Interval history November 03, 2024: Patient here for follow-up visit slightly now over 3 months out from surgery. She reports significant improvement in regards to her range of motion from last visit. Physical exam Patient appears comfortable, no distressArthroscopic portal incisions well-healedSoft compressible compartments.Neurovascula rly intact distallyShoulder ROM testing: Active forward elevation to 130 degrees, external rotation 50 degrees, L5. Passive range of motion with forward elevation to 160 degrees and external rotation 60 degrees, internal rotation L54+/5 strength rotator cuff testing with improved mechanicsPain free passive hand, elbow, wrist ROM Intraoperative Findings: High-grade partial-thickness upper border subscapularis tear s full-thickness, retracted U-shaped tear of supraspinatus and anterior infraspinatus repaired with double row construct. Significant osteoporosis suspected given multiple anchors pulling out. Plan:Patient overall doing well demonstrating improvement in her range of motion and shoulder mechanics. Pain remains well-controlled. She will continue with rotator cuff/periscapular isometric strengthening. Understands they will continue to be careful with the shoulder as the cuff repair still lacks adequate strength to allow unrestricted use or strengthening. Plan for follow-up in 2 months. Terrell Varma MD [address], [place], [address], [facility] 11/03/2024 18:24:29 OBGyn Episode No OBEpisode recorded.
--- OUTSIDE RECORDS SUMMARY | 2025-03-18 18:16 | XMS_ITS | Encounter Summary ---
Author Organization [facility] Address [address] [place] [address] Phone Care Team Providers Care Metal Filer Name Role Phone Sohan Swain MD Unavailable [phone] Sohan Swain MD Primary Care Provider Sohan Swain MD Unavailable Encounter Details Date Type Department Care Team (Late st Contact Info) Description 02/12/2025 Orders Only [facility] [address] [place] [address] Sohan Swain MD [address] [facility], 2nd [place] [address] [email or web address] Social History Tobacco Use Types Packs/Day Years Used Date Smoking Tobacco: Former Cigarettes Q uit: 1978 Smokeless Tobacco: Never Comments:Started smoking at 17 y/o and quit [...] high school, GED, job training, learning the Haitian language, technical skills, or developing parenting skills)? [...] your housing situation today? 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 Not on file Not on file documented as of this encounter Plan of Treatment Upcoming Encounters Date Type Department Care Team (Late st Contact Info) Description 03/22/2025 3:30 PM EST Office Visit [address] [place] [address] Sohan Swain MD [address] [place] [address] 05/04/2025 1:00 PM EST Office Visit [facility] [address] [place] [address] Vikas Vega MD [address] [place] [address] 06/15/2025 9:15 AM EST Appointment [facility], Bone Density - [address] [address] Sohan Swain MD [address] [place] [address] documented as of this encounter Procedures Procedure Name Priority Date/Time Associated Diagnosis Comments HM MAMMOGRAPHY Routine 02/10/2025 2:58 PM EDT documented in this encounter Results * MAMMOGRAPHY FOR RESULT ENTRY ONLY (02/10/2025 2:58 PM EDT) Sohan Swain MD HEALTH MAINTENANCE Edited R esult - Final documented in this encounter Visit Diagnoses Not on filedocumented in this encounter Additional Health Concerns Assessment Noted Time A Body Mass Index follow-up plan has been documented for the patient 02/09/2024 12:56 PM EDT PHQ-2 Depression Total Score: 0 02/04/20 4:30 PM EDT documented as of this encounter Care Teams Metal Filer Relationship Specialty Start Date End Date Sohan Swain MD [address] [place] [address] PCP - General 04/11/17 Sohan Swain MD [address] [place] [address] Historical LMR Provider 03/03/17 Sohan Swain MD [address] [place] [address] Insurance Assigned Provider 08/17/23 documented as of this encounter Additional Source Comments The information contained in this document represents components of the legal health record. It is not the complete legal health record.[facility]
--- OUTSIDE RECORDS SUMMARY | 2025-03-18 18:16 | XMS_ITS | Patient Health Record ---
[facility] Address [address] [place] [address] Care Team Providers Care Energy Project Manager Name Role Phone Sohan Swain Primary Care Provider Unavailab stephen Shira Delarosa Unavailable [phone] Allergies Allergen (clinical drug ingredient) Drug/Non Drug [...] a day Active Nightsplint . . . .; Duration: 30 days Active Citalopram Hydrobromide 20 MG [...] W/U Status Risk Notes Problem Interstitial myositis (25866295) Interstitial myositis of right foot (M60.171) Active confirmed Plan Of Treatment No Information Insurance Providers Payer Name Payer Address Payer Phone Subscriber Number Group Number Insured Name Patient Relationship to Insured Coverage Start Date Coverage End Date [employer] [address] [place] [address] [id number] Sonia Kelly Self - patient is the insured Medical (General) History Medical History History ICD Code Anxiety Arthritis Back,Hip,and Knee pain Depression Hypothyroidism Chicken pox covid-19 Surgical History Surgery Date(Month/Year) 1999 1991 ovarian cyst removal 2000 gastric bypass 2003 Breast reduction 05/2017 right knee replacement 04/11/22
--- OUTSIDE RECORDS SUMMARY | 2025-03-18 18:16 | XMS_ITS | Encounter Summary ---
Author Organization [facility] Address [address] [facility] [address] [place] [address] Phone Care Team Providers Care Communications Technologist Name Role Phone Sohan Swain MD Unavailable Sohan Swain MD Primary Care Provider Sohan Swain MD Unavailable [phone] Reason for Visit * Reason Onset Date Comments Appointment 03/17/2025 CPAP Compliance f/u Encounter Details Date Type Department Care Team (Late st Contact Info) Description 03/17/2025 Telephone [facility], Allergy and Critical Care Medicine [address] [place] [address] Vikas Vega MD [address] [place] [address] Appointment (CPAP Compliance f/u) Social History Tobacco Use Types Packs/Day Years [...] high school, GED, job training, learning the [place]ib[place]ian language, technical skills, or developing parenting skills)? 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 Vega * Renetta Mata - 03/17/2025 9:43 AM EST Received a fax from [facility] requesting OV notes for CPAP compliance from 02-10-25 or later and that patient is due for a follow up to continue coverage for her device/supplies Ok to book next available opening, the fax doesn't list a date that it has to be done by documented in this encounter Plan of Treatment Upcoming Encounters Date Type Department Care Team (Late st Contact Info) Description 03/22/2025 3:30 PM EST Office Visit [facility] [address] [place] [address] Sohan Swain MD [address] [place] [address] [address] [place] [address] 05/04/2025 1:00 PM EST Office Visit [facility] [address] [place] [address] [place] [address] Vikas Vega MD [address] [place] [address] 06/15/2025 9:15 AM EST Appointment [facility], Bone [facility] - [address] [address] Sohan Swain MD [address] [place] [address] documented as of this encounter Visit Diagnoses Not on filedocumented in this encounter Additional Health Concerns Assessment Noted Time A Body Mass Index follow-up plan has been documented for the patient 02/09/2024 12:56 PM EDT PHQ-2 Depression Total Score: 0 02/18/20 25 7:25 PM EDT documented as of this encounter Care Teams Communications Technologist Relationship Specialty Start Date End Date Sohan Swain MD [address] [place] [address] PCP - General 04/11/17 Sohan Swain MD [address] [place] [address] Historical LMR Provider 03/03/17 Sohan Swain MD [address] [place] [address] Insurance Assigned Provider 08/17/23 documented as of this encounter Additional Source Comments The information contained in this document represents components of the legal health record. It is not the complete legal health record.[facility]
--- OUTSIDE RECORDS SUMMARY | 2025-03-18 18:16 | XMS_ITS | Encounter Summary ---
Author Organization [facility] Address [address] [place] [address] Phone Care Team Providers Care Tube Roller Name Role Phone Sohan Swain MD Unavailable [phone] Alex Stark MD Unavailable Jessica Dominguez MD Unavailable [phone] Sohan Swain MD Primary Care Provider Sohan Swain MD Unavailable [phone] Encounter Details Date Type Department Care Team (Late Contact Info) Description 05/14/2017 Procedure Pass OR Admitting Dept - Virtual Department [address] [place] [address] Social History Tobacco Use Types Packs/Day Years Used Date Smoking Tobacco: Never Smokeless Tobacco: Never Alcohol Use Standard Drinks/Week Comments No 0 (1 standard drink = 0.6 oz pur e alcohol) Comments Unknown Sex and Gender Information Value Date Recorded Sex Assigned at Female 05/20/2017 9:38 AM EST Legal Sex Female 9:50 PM EDT Gender Identity Female 05/20/2017 9:38 AM EST Sexual Orientation Straight 05/20/2017 9: 38 AM EST documented as of this encounter Plan of Treatment Upcoming Encounters Date Type Department Care Team (Late Contact Info) Description 03/22/2025 3:30 PM EST Office Visit [facility] [address] [place] [address] [place] [address] Sohan Swain MD [address] [place] [address] 05/04/2025 1:00 PM EST Office Visit [facility] [address] [facility] [place] [address] Vikas Vega MD [address] [address] 06/15/2025 9:15 AM EST Appointment [facility], Bone [address] [address] Sohan Swain MD [address] [place] [address] documented as of this encounter Visit Diagnoses Not on filedocumented in this encounter Additional Health Concerns Infection Onset Date Last Indicated Resolved Time CoV-Presumed 09/24/2021 09/24/2021 10/15/2021 1:21 AM EDT CoV-Risk 03/30/2022 03/30/2022 04/10/2022 1:31 AM EST documented as of this encounter Care Teams Tube Roller Relationship Specialty Start Date End Date Sohan Swain MD [address] [place] [address] PCP - General 04/11/17 Sohan Swain MD [address] [place] [address] Historical LMR Provider 03/03/17 Alex Stark MD [address] [place] [address], [address] [place] [address] [email or web address] Historical LMR Provider 03/03/17 05/20/21 Jessica Dominguez MD [address] [place] [phone] Historical LMR Provider 03/03/17 2 Sohan Swain MD [address] [place] [address], 2[address] [place] [address] [email or web address] Insurance Assigned Provider 08/17/23 documented as of this encounter Additional Source Comments The information contained in this document represents components of the legal health record. It is not the complete legal health record.[facility]
== END 2025-03-18 15:24 | disposition home or self-care (01) ==
LOC: HO.LAB 15:23
PROVIDERS: PCP Internal Medicine; Visit Provider Physician Assistant Surgical
DX: Z13.29 Encounter for screening for other suspected endocrine disorder (principal); Z98.84 Bariatric surgery status
CPT/HCPCS: 36415; 80053; 82306; 82607; 82728; 82746; 83540; 84425; 84443; 84590; 84630; 85025; 86140

== ENCOUNTER 2025-03-29 08:56 | Day surgery (SDC) | payer MEDICARE, SELFPAY ==
--- OUTSIDE RECORDS SUMMARY | 2025-03-22 15:30 | XMS_ITS | Encounter Summary ---
Author Organization [facility] Address [address] [facility] [address] [place] [address] Phone Care Team Providers Care Deburrer Machine Name Role Phone Sohan Swain MD Unavailable [phone] Sohan Swain MD Primary Care Provider [phone] Sohan Swain MD Unavailable [phone] Reason for Referral * MRI/CAT Scan - Authorized Specialty Diagnoses / Procedures Referred By Andrei bravo Referred To Contact Diagnoses Abdominal pain, epigastric Procedures CT Abdomen/Pelvis Sohan Swain MD [address] [place] [address], [address] [place] [address] Phone: tel: fax: [email or web address] Referral ID Status Reason Start Date Expiration Date V isits Requested Visits Authorized [id number] Authorized 03/22/2025 1 1 Reason for Visit * Reason Comments Nausea Pt has been in commu nication with her surgeon from recent surgery Encounter Details Date Type Department Care Team (Late st Contact Info) Description 03/22/2025 3:30 PM EST Office Visit [facility] [address] [place] [address] [place] [phone] Sohan Swain MD [address] [place] [address], [address] [place] [address] Abdominal pain, epigastric (Primary Dx) Social History Tobacco Use Types Packs/Day Years [...] high school, GED, job training, learning the [place] Islander language, technical skills, or developing parenting skills)? 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 Not on file Not on file documented as of this encounter Last Filed Vital Signs Vital Sign Reading Time Taken Comments Blood Pressure 114/68 03/22/2025 3:28 PM EST Pulse 80 03/22/2025 3:28 PM EST Temperature 36.2 C (97.2 F) 03/22/2025 3:28 PM EST Respiratory Rate - - Oxygen Saturation 99% 03/22/2025 3:28 PM EST Inhaled Oxygen Concentration - - Weight 79.2 kg (174 lb 9.6 oz) 03/22/2025 3:28 P M EST Height - - Body Mass Index 31.52 02/24/2025 1:20 PM EDT documented in this encounter Plan of Treatment Upcoming Encounters Date Type Department Care Team (Late st Contact Info) Description 05/04/2025 1:00 PM EST Office Visit [facility] [address] [place] [address] [place] [address] Vikas Vega MD [address] [address] 06/15/2025 9:15 AM EST Appointment [facility], Bone Density - [address] [address] Sohan Swain MD [address] [place] [address] documented as of this encounter Procedures Procedure Name Priority Date/Time Associated Diagnosis Comments CT ABDOMEN/PELVIS Routine 03/22/2025 3:41 PM EST Abdominal pain, epigastric documented in this encounter Visit Diagnoses Diagnosis Abdominal pain, epigastric- Primary documented in this encounter Additional Health Concerns Assessment Noted Time A Body Mass Index follow-up plan has been documented for the patient 02/09/2024 12:56 PM EDT PHQ-2 Depression Total Score: 0 02/18/20 25 7:25 PM EDT documented as of this encounter Care Teams Deburrer Machine Relationship Specialty Start Date End Date Sohan Swain MD [address] [place] [address] PCP - General 04/11/17 Sohan Swain MD [address] [place] [address] Historical LMR Provider 03/03/17 Sohan Swain MD [address] [place] [address] Insurance Assigned Provider 08/17/23 documented as of this encounter Additional Source Comments The information contained in this document represents components of the legal health record. It is not the complete legal health record.[facility]
--- OUTSIDE RECORDS SUMMARY | 2025-03-22 17:20 | XMS_ITS | Encounter Summary ---
Author Organization [facility] Address [address] [place] [address] Phone Care Team Providers Care Advertising Executive Name Role Phone Sohan Swain MD Unavailable [phone] Alex Stark MD Unavailable Jessica Dominguez MD Unavailable + [phone] Sohan Swain MD Primary Care Provider Sohan Swain MD Unavailable [phone] Encounter Details Date Type Department Care Team (Late Contact Info) Description 05/14/2017 Procedure Pass OR Admitting Dept - Virtual Department [address] [place] [address] Social History Tobacco Use Types Packs/Day Years [...] Upcoming Encounters Date Type Department Care Team ([facility] Contact Info) Description 05/04/2025 1:00 PM EST Office Visit [facility] [address] [place] [address] Vikas Vega MD [address] [place] [address] 06/15/2025 9:15 AM EST Appointment [facility], Bone Density - [address] [address] Sohan Swain MD [address] [place] [address] documented as of this encounter Visit Diagnoses Not on filedocumented in this encounter Additional Health Concerns Infection Onset Date Last Indicated Resolved Time CoV-Presumed 09/24/2021 09/24/2021 10/15/2021 1:21 AM EDT CoV-Risk 03/30/2022 03/30/2022 04/10/2022 1:31 AM EST documented as of this encounter Care Teams Advertising Executive Relationship Specialty Start Date End Date Sohan Swain MD [address] [place] [address] PCP - General 04/11/17 Sohan Swain MD [address] [place] [address] Historical LMR Provider 03/03/17 Alex Stark MD [address] [place] [address], [address] [address] Historical LMR Provider 03/03/17 05/20/21 Jessica Dominguez MD [address] [place] [address] Historical LMR Provider 03/03/17 2 Sohan Swain MD [address] [place] [address], 2nd [place] [address] [email or web address] Insurance Assigned Provider 08/17/23 documented as of this encounter Additional Source Comments The information contained in this document represents components of the legal health record. It is not the complete legal health record.[facility]
--- OUTSIDE RECORDS SUMMARY | 2025-03-22 17:20 | XMS_ITS | Clinical Summary ---
Author Organization [facility] Address [address] [place] [address] Phone Care Team Providers Care Obstetrics Scrub Nurse Name Role Phone Sohan Swain MD Unavailable [phone] Sohan Swain MD Primary Care Provider Sohan Swain MD Unavailable [phone] Allergies No known active allergies Medications clonazePAM [...] Active diclofenac sodium (VOLTAREN) 1 % GelIndications:Ac southern ute pain of left knee Apply 4 g [...] Encounters Date Type Department Care Team Description 03/22/2025 3:30 PM EST Office Visit [address] [place] [address] Sohan Swain MD Abdominal pain, epigastric (Primary Dx) 03/22/[address] [place] [address] Sohan Swain MD Request For Order(s) 03/22/2025 Orders Only [address] [place] [address] Unknown, Unknown, MD 03/17/2025 Telephone [facility] Pulmonary, Allergy and Critical Care Medicine [address] [place] [address] Vikas Vega MD Appointment (CPAP Compliance f/u) 02/24/2025 1:59 PM EDT - 02/24/2025 11:59 PM EDT Hospital Encounter [facility] [address] [place] [address] Sohan Swain MD Discharge Disposition: Home or Self Care 02/24/2025 1:15 PM EDT Office Visit [address] [place] [address] Sohan Swain MD Medicare annual wellness visit, initial (Primary Dx); Major depressive disorder, recurrent severe without psychotic features; Acquired hypothyroidism 02/12/2025 Orders Only [address] [place] [address] Sohan Swain MD from Last 3 Months [...] high school, GED, job training, learning the Ukrainian language, technical skills, or developing parenting skills)? 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 Not on file Not on file Last Filed Vital Signs Vital Sign Reading Time Taken Comments Blood Pressure 114/68 03/22/2025 3:28 PM EST Pulse 80 03/22/2025 3:28 PM EST Temperature 36.2 C (97.2 F) 03/22/2025 3:28 PM EST Respiratory Rate 14 05/14/2017 3:45 PM EST Oxygen Saturation 99% 03/22/2025 3:28 PM EST Inhaled Oxygen Concentration - - Weight 79.2 kg (174 lb 9.6 oz) 03/22/2025 3:28 P M EST Height 158.5 cm (5' 2.4 ) 02/24/2025 1:20 PM EDT Body Mass Index 31.52 02/24/2025 1:20 PM EDT Plan of Treatment Upcoming Encounters Date Type Department Care Team (Late st Contact Info) Description 05/04/2025 1:00 PM EST Office Visit [facility] Pulmonary, Allergy and Critical Care Medicine [address] [place] [address] Vikas Vega MD [address] [place] [address] 06/15/2025 9:15 AM EST Appointment [facility], Bone Density - [address] [address] Sohan Swain MD [address] [place] [address], [address] [place] [address] Health Maintenance Due Date Last Done Comments [...] on patient's age to complete this topic IPV VACCINES Aged Out No longer eligi ble [...] Associated Diagnosis Comments CT ABDOMEN/PELVIS Routine 03/22/2025 3:4 1 PM EST Abdominal pain, epigastric OUTSIDE LAB Routine 03/18/2025 1:56 PM EST OUTSIDE LAB Routine 03/18/2025 1:54 PM EST LIPID PANEL Routine 02/24/2025 2:04 PM EDT Annual physical exam HEMOGLOBIN A1C Routine 02/24/2025 2:04 PM EDT Annual physical exam TSH WITH REFLEX Routine 02/24/2025 2:04 PM EDT Acquired hypothyroidism HM MAMMOGRAPHY Routine 02/10/2025 2:58 PM EDT HM COLONOSCOPY FOR RESULT ENTRY ONLY Routine 12/17/2023 12:09 PM EDT from Last 3 Months or Most Recently Relevant to Health Maintenance Results * Outside Lab (Non-MGB) (03/18/2025 1:56 PM EST) Only the most recent of2 resultswithin the time period is included. us Unknown Unknown MD LAB BLOOD BKR ORDERABLES Edit ed Result - Final * TSH with reflex (02/24/2025 2:04 PM EDT) TSH 2.64 0.27 - 4.20 uIU/mL [facility] Blood 02/24/2025 2:04 PM EDT 02/24/2025 2:31 PM EDT Sohan Swain MD LAB BLOOD BKR ORDERABLES Fi nal Result [address] [address] * Hemoglobin A1c (02/24/2025 2:04 PM EDT) HEMOGLOBIN A1C 5.7 4.3 - 5.8 % [facility] Blood 02/24/2025 2:04 PM EDT 02/24/2025 2:31 PM EDT Sohan Swain MD LAB BLOOD BKR ORDERABLES Fi nal Result Performing Organization Address City/[facility]/ZIP Co de Phone Number [address] [address] * (ABNORMAL) Lipid panel (02/24/2025 2:04 PM EDT) HDL 83 mg/dL [facility] Comment: Interpretation <40 mg/dL: Low HDL cholesterol (major risk factor for CHD) Greater than or equal to 60 mg/dL: High HDL cholesterol ( negative risk factor for CHD) HDL - cholesterol is affected by a number of factors, e.g. smoking, excerise, hormones, sex and age. CHOLESTEROL 225 0 - 240 mg/dL [facility] TRIGLYCERIDES 107 30 - 160 mg/dL [facility] LDL 121 50 - 129 mg/dL [facility] Comment: LDL levels in terms of risk for coronary heart disease: <100 mg/dL: Optimal 100-129 mg/dL: Near or above optimal 130-159 mg/dL: Borderline high 160-189 mg/dL: High >190 mg/dL: Very High CARDIAC RISK RATIO 2.7(L) 3.3 - 4.4 C [facility] Blood 02/24/2025 2:04 PM EDT 02/24/2025 2:31 PM EDT us Sohan Swain MD LAB BLOOD BKR ORDERABLES Fi nal Result [facility] [address] [place] [address] * HM MAMMOGRAPHY FOR RESULT ENTRY ONLY (02/10/2025 2:58 PM EDT) us Sohan Swain MD HEALTH MAINTENANCE Edited R esult - Final * HM COLONOSCOPY FOR RESULT ENTRY ONLY (12/17/2023 12:09 PM EDT) us Unknown Unknown HEALTH MAINTENANCE Final Resu lt from Last 3 Months or Most Recently Relevant to Health Maintenance Insurance [place] [employer] MEDEX SUPPLEMENT MEDICARE PART A & B MEDICARE PART A & B [employer] CROSS MEDEX SUPPLEMENT BLUE [employer] MEDEX SUPPLEMENT [employer] CROSS MEDEX SUPPLEMENT MEDICARE PART A & B [employer] MEDEX SUPPLEMENT MEDICARE PART A & B [employer] CROSS MEDEX SUPPLEMENT MEDICARE PART A & B [employer] CROSS MEDEX SUPPLEMENT MEDICARE PART A & B Advance Directives For more information, please contact: [phone] (9AM - 5PM [facility], Saturday-Saturday) Documents on File Type Date 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 05/15/2017 10:26 AM * Full Code (Presumed) (Latest Code Status on File) Date Activated Date Inactivated Comments 05/14/2017 9:49 AM 05/14/2017 7:53 PM Care Teams Obstetrics Scrub Nurse Relationship Specialty Start Date End Date Sohan Swain MD [address] [place] [phone] PCP - General 04/11/17 Sohan Swain MD [address] [place] [address] Historical LMR Provider 03/03/17 Sohan Swain MD [address] [place] [phone] Insurance Assigned Provider 08/17/23 Additional Source Comments The information contained in this document represents components of the legal health record. It is not the complete legal health record.[facility]
--- OUTSIDE RECORDS SUMMARY | 2025-03-22 17:20 | XMS_ITS | Encounter Summary ---
Author Organization [facility] Address [address] [place] [address] [place] [address] Phone Care Team Providers Care Digital Associate Name Role Phone Sohan Swain MD Unavailable [phone] Sohan Swain MD Primary Care Provider Sohan Swain MD Unavailable [phone] Encounter Details Date Type Department Care Team (Late st Contact Info) Description 03/22/2025 Orders Only [facility] [place] [address] [place] [address] Unknown, Unknown, Social History Tobacco Use Types Packs/Day Years [...] high school, GED, job training, learning the Cymraes language, technical skills, or developing parenting skills)? 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 file Not on file documented as of this encounter Plan of Treatment Upcoming Encounters Date Type Department Care Team (Late st Contact Info) Description 05/04/2025 1:00 PM EST Office Visit [facility] Pulmonary, Allergy and Critical Care Medicine [address] [facility] [place] [address] Vikas Vega MD [address] [address] [email or web address] 06/15/2025 9:15 AM EST Appointment [facility], Bone Density [facility] [address] [place] [address] Sohan Swain MD [address] [place] [address] documented as of this encounter Procedures Procedure Name Priority Date/Time Associated Diagnosis Comments OUTSIDE LAB Routine 03/18/2025 1:56 PM EST OUTSIDE LAB Routine 03/18/2025 1:54 PM EST documented in this encounter Results * Outside Lab (Non-MGB) (03/18/2025 1:56 PM EST) us Unknown Unknown MD LAB BLOOD BKR ORDERABLES Edit ed Result - Final * Outside Lab (Non-MGB) (03/18/2025 1:54 PM EST) us Unknown Unknown MD LAB BLOOD BKR ORDERABLES Edit ed Result - Final documented in this encounter Visit Diagnoses Not on filedocumented in this encounter Additional Health Concerns Assessment Noted Time A Body Mass Index follow-up plan has been documented for the patient 02/09/2024 12:56 PM EDT PHQ-2 Depression Total Score: 0 02/18/20 25 7:25 PM EDT documented as of this encounter Care Teams Digital Associate Relationship Specialty Start Date End Date Sohan Swain MD [address] [place] [address], [address] [place] [address] PCP - General 04/11/17 Sohan Swain MD [address] [place] [address], [address] [place] [address] Historical LMR Provider 03/03/17 Sohan Swain MD [address] [place] [address], [address] [place] [address] Insurance Assigned Provider 08/17/23 documented as of this encounter Additional Source Comments The information contained in this document represents components of the legal health record. It is not the complete legal health record.[facility]
--- OUTSIDE RECORDS SUMMARY | 2025-03-22 17:20 | XMS_ITS | Encounter Summary ---
Author Organization [facility] Address [address] [place] [address] Phone Care Team Providers Care Reproduction Specialist Name Role Phone Sohan Swain MD Unavailable Sohan Swain MD Primary Care Provider [phone] Sohan Sawin MD Unavailable [phone] Reason for Visit * Reason Onset Date Comments Request For Order(s) 03/22/2025 Encounter Details Date Type Department Care Team (Late st Contact Info) Description 03/22/2025 Telephone [facility] [address] [place] [address] [place] [address] Sohan Swain MD [address] [place] [address], [address] [place] [address] [email or web address] Request For Order(s) Social History Tobacco Use Types Packs/Day Years [...] high school, GED, job training, learning the Salvadorean language, technical skills, or developing parenting skills)? 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 Central Support Newspaper Or Periodical Editor (Please do not reply to this user; this inbox is not monitored.) Thank you. documented in this encounter Plan of Treatment Upcoming Encounters Date Type Department Care Team (Late st Contact Info) Description 05/04/2025 1:00 PM EST Office Visit [facility] Pulmonary, Allergy and Critical Care Medicine [address] [place] [address] Vikas Vega MD [address] [place] [address] 06/15/2025 9:15 AM EST Appointment [facility], [address] [address] Sohan Swain MD [address] [place] [address] documented as of this encounter Visit Diagnoses Not on filedocumented in this encounter Additional Health Concerns Assessment Noted Time A Body Mass Index follow-up plan has been documented for the patient 02/09/2024 12:56 PM EDT PHQ-2 Depression Total Score: 0 02/18/20 25 7:25 PM EDT documented as of this encounter Care Teams Reproduction Specialist Relationship Specialty Start Date End Date Sohan Swain MD [address] [place] [address], [address] [place] [address] PCP - General 04/11/17 Sohan Swain MD [address] [place] [address] Historical LMR Provider 03/03/17 Sohan Swain MD [address] [place] [address] Insurance Assigned Provider 08/17/23 documented as of this encounter Additional Source Comments The information contained in this document represents components of the legal health record. It is not the complete legal health record.[facility]
--- OUTSIDE RECORDS SUMMARY | 2025-03-22 17:20 | XMS_ITS | Encounter Summary ---
Author Organization [facility] Address [address] [place] [address] Phone Care Team Providers Care Machine Bobbin Winder Name Role Phone Sohan Swain MD Unavailable [phone] Sohan Swain MD Primary Care Provider Sohan Swain MD Unavailable [phone] Reason for Visit * Reason Onset Date Comments Appointment 03/17/2025 CPAP Compliance f/u Encounter Details Date Type Department Care Team (Late st Contact Info) Description 03/17/2025 Telephone [facility] Pulmonary, Allergy and Critical Care Medicine [address] [place] [address] Vikas Vega MD [address] [place] [address] Appointment (CPAP Compliance f/u) Social History Tobacco [...] high school, GED, job training, learning the Cym[place] language, technical skills, or developing parenting skills)? 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 Vega * Renetta Mata - 03/17/2025 9:43 AM EST Received a fax from [facility] requesting OV notes for CPAP compliance [...] Description 05/04/2025 1:00 PM EST Office Visit [facility] Pulmonary, Allergy and Critical Care Medicine [address] [place] [address] Vikas Vega MD [address] [place] [address] 06/15/2025 9:15 AM EST Appointment [facility], Bone Density [address] [address] Sohan Swain MD [address] [place] [address] documented as of this encounter Visit Diagnoses Not on filedocumented in this encounter Additional Health Concerns Assessment Noted Time A Body Mass Index follow-up plan has been documented for the patient 02/09/2024 12:56 PM EDT PHQ-2 Depression Total Score: 0 02/18/20 25 7:25 PM EDT documented as of this encounter Care Teams Machine Bobbin Winder Relationship Specialty Start Date End Date Sohan Swain MD [address] [place] [address] PCP - General 04/11/17 Sohan Swain MD [address] [place] [address] Historical LMR Provider 03/03/17 Sohan Swain MD [address] [place] [phone] Insurance Assigned Provider 08/17/23 documented as of this encounter Additional Source Comments The information contained in this document represents components of the legal health record. It is not the complete legal health record.[facility]
--- OUTSIDE RECORDS SUMMARY | 2025-03-22 17:20 | XMS_ITS | Data Portability ---
Author Organization [facility] Address [address] [place] [address] Care Team Providers Care Car Manager Name Role Phone EYAD PALUMBO Primary Care [...] X-rays reviewed in the office today on [facility] P[facility]: Weightbearing AP of both knees, lateral [...] of their questions today in the office. [email or web address] speech recognition threading machine operator software was used to create portions of this document. An attempt at proofreading has been made to minimize errors. Please call for corrections. [email or web address] Not available 06/11/2024 14:05:21 Plan of Treatment Reminders Order Date Submit Date Provider Last Modified By Organization Details Last Modified Time Details Appointments None recorded. Lab None recorded. Referral physical therapist referral - continue pt/ HEP 2-4 times/sat- pt/saul bravo discretio n 2024 025 [email or web address] 7 [facility]), [address], [place], [address], 5 17:17:09 physical therapist referral - continue AAROM, AROM, PROM. Start strengthe mitch After 3 months if rom/ mechanics adequate 2024 025 [email or web address] 7 [facility]), [address], [place], [address], 5 16:46:14 Procedures None recorded. Surgeries None [...] contr ast No observ ation record ed. [facility] [address] [address], [place], [address], 05/19/2024 10:56:02 05/19/19 25 05/18/2024 MRI, shoul ashley, w/o contr ast No observ ation record ed. [email or web address] [facility] [address], [place], [address], 05/19/2024 10:56:03 Result Notes None recorded. Problems Name Problem SNOMED Code Status Onset Date Resolution Date Notes Provider Name and Address Organization Details Recorded Time No complaints 072793810 Active Status : 'A'; Not Available [facility] 4 09:22:05 Osteoarthr itis of left knee joint 5165024062513 09 Active 2023 Onur Thayer MD [address], [place], [address] , [facility] 4 07:57:06 Bilateral shoulder joint pain 9947530678474 9104 Active 2023 DORIE lang [facility] 4 13:25:45 Bilateral impingemen t syndrome of shoulders 3124250101782 9103 Active 2023 DORIE lang [facility] 4 13:53:12 Postoperat bijan pain 926274485 Active 2024 Terrell Varma MD [address], [place], [address] , [facility] 5 11:40:01 Nontraumat ic complete rupture of rotator cuff of right shoulder 1556152732858 100 Active 2024 KAYLIA L'HEUREUX precious [facility] 5 09:06:27 Problem Notes None recorded. Procedures Surgical History Date Name Laterality Status Provider Name and Address Organization Details Recorded Time 4 Sports Shoulder Bilateral completed Terrell Varma MD [address] [facility] [address], [place], [address], [facility] 12/27/2023 18:13:09 4 Sports Knee 4&1 completed Washington Llaons PA-C [address], [place], [address], [facility] 10/17/2023 07:35:31 3 Knee Surgery completed [facility] 12/27/2023 13:23:44 Bariatric Surgery completed [facility] 12/27/2023 13:23:44 Other completed [facility] 12/27/2023 13:23:44 Imaging Results None recorded. Procedure [...] Updated DateTime 05/21/2024 159.385 cm 29.8 kg/m2 50963.93 g Chuyita yo [facility] 05/21/2024 07:57:58 Date Recorded Body height Body mass index (BMI) Body weight Provider Name and Address Organization Details Last Updated DateTime 06/11/2024 159.385 cm 29.8 kg/m2 55529.93 g Marybeth Calero [facility] 06/11/2024 13:32:51 Date Recorded Body height Body mass index (BMI) Body weight Provider Name and Address Organization Details Last Updated DateTime 07/24/2024 159.385 cm 29.8 kg/m2 15426.93 g VIVIAN AKBAR [facility] 07/24/2024 10:14:21 Date Recorded Body height Body mass index (BMI) Body weight Provider Name and Address Organization Details Last Updated DateTime 09/24/2024 159.385 cm 29.8 kg/m2 32631.93 g Terrell Varma MD [address] [place] [address] [address], [place], [address], [facility] 09/24/2024 08:35:49 Date Recorded Body height Body mass index (BMI) Body weight Provider Name and Address Organization Details Last Updated DateTime 11/03/2024 159.385 cm 29.8 kg/m2 88333.93 g Chuyita boylelinda [facility] 11/03/2024 08:37:51 Social History Question Answer Notes LastModified by Organizat ion Details LastModified Time Tobacco Smoking Status Former Smoker DORIE SOFIA lang [facility] 12/27/2023 13:23:41 When Did You Quit Smoking? 16+yearssinc elastcigaret te [email or web address] Information not available 12/27/2023 What Is Your Relationship Status? Information not available 10/17/2023 How Many Years Have You Smoked Tobacco? 3 [email or web address] Information not available 12/27/2023 Sex: Unknown Functional Status Question Answer Note LastModified by Organizat ion Details LastModified Time How many times per week do you consume alcohol? Less than 1 time per week [email or web address] Information not available 12/27/2023 Do you use any illicit or recreational drugs? No Information not available 10/17/2023 Do you or have you ever used any other forms of tobacco or nicotine? No Information not available 10/17/2023 What is your level of alcohol consumption? None Information not available 10/17/2023 Do you or have you ever used e-cigarettes or vape? Never used electronic cigarettes [email or web address] Information not available 12/27/2023 Mental Status None recorded. Family History Nothing Reported. Medical History Condition Response Allergies/Hayfever N Coronary Artery Disease N Breathing or lung disorders N Anxiety/Depression Y Emphysema N Nerve Disorders N Thyroid Problems Y COPD N Pacemaker N Kidney/Bladder Problems N Anemia N Vascular Disease N Heart Trouble N Gastrointestinal Disease N Heart Attack ([place]) N Cholesterol N Diabetes N Autoimmune disease [...] ICD10 Code Diagnosis IMO Codes Diagnosis Note [id number] Onur Thayer MD [facility] [address] [place] [address] 10/10/2023 08:48:35 11/08/2023 12:59:59 Pain of left knee joint 2596635183 71787 M25.586 [id number] Washington Llanos PA-C [facility] [address] [place] [address] 10/17/2023 09:20:31 11/25/2023 10:52:07 Osteoarthritis of left knee joint 5932212287 62175 M17.12 [id number] Terrell Varma MD [facility] [address] [place] [address] 12/27/2023 13:16:46 01/21/2024 10:21:10 Bilateral shoulder joint pain 6850329602 6427442 M25.511 M25.512 Bilateral impingement syndrome of shoulders 5433339019 9194989 M75.41 M75.42 [id number] Sundar Mead NP [facility] [address] [place] [address] 02/19/2024 13:24:30 03/14/2024 03:58:55 [id number] Onur Thayer MD [facility] [address] [place] [address] 02/19/2024 15:32:27 03/14/2024 03:58:55 [id number] Raul Cota PA-C [facility] [address] [place] [address] 03/10/2024 13:15:18 04/03/2024 09:23:20 History of total knee arthroplasty 5470973191 105 Z96.652 71486484 Pain of le ft knee joint 0797644234 59966 M25.562 45948055 [id number] ELEN Akins [address] [place] [address] 03/26/2024 14:33:19 04/27/2024 14:32:18 Aftercare 686533218 Z51.89 Implantati on of joint prosthesis 00965638 Z47.1 [id number] MD Carolyn [facility] on [facility] [address] [place] [address] 05/07/2024 09:27:01 05/27/2024 17:02:15 Pain of left shoulder joint 4082160986 0730889 M25.512 919527 Pain of ri ght shoulder joint 6380434428 1193299 M25.511 068945 Bilateral chronic pain of upper limbs 8076757602 9384927 M25.511 M25.512 G89.29 [id number] [id number] MD JOSE ARMANDO [facility] [address] [place] [address] 05/21/2024 07:51:24 06/05/2024 10:48:46 Right rotator cuff syndrome 8283752310 78176 M75.385 8506302 Nontraumat ic complete rupture of rotator cuff of right shoulder 3250037797 546670 M75.121 51576662 [id number] MD [facility] [address] [place] [address] 06/11/2024 13:25:35 06/22/2024 08:36:50 History of left total knee replacement 6168405030 024021 Z96.652 85740346 [id number] MD JOSE ARMANDO [facility] [address] [place] [address] 07/24/2024 10:08:33 08/14/2024 08:00:43 Nontraumatic complete rupture of rotator cuff of right shoulder 6235780891 131432 M75.121 58707354 [id number] MD JOSE ARMANDO [facility] [address] [place] [address] 09/24/2024 08:20:56 10/07/2024 15:19:53 Nontraumatic complete rupture of rotator cuff of right shoulder 1509069554 101630 M75.121 69110063 [id number] Terrell Varma MD [facility] [address] [facility] [place] [address] 11/03/2024 08:31:30 11/21/2024 08:11:57 Nontraumatic complete rupture of rotator cuff of right shoulder 2400845768 130937 M75.121 [id number] Health Concerns Section Related Observation LastModified by Organization Detai ls LastModified Time None Recorded Concern Status LastModified by Organization Details LastModified Time None Recorded Advance Directives Directive None Recorded Payers Insurance Date Sequence Insurance Name Policy Number Policy Whitfield Covered Member ID Whitfield Member ID Guarantor Name 11/21/2024 1 BCAMANDA-BRIANNA (PPO) [id number] Sonia Gould Robin [id number] Sonia Kelly Notes Date Note Type [...] the shoulder after surgery. Terrell Varma MD [address] [place] [address] [address], [place], [address], [facility] 05/21/2024 10:32:28 5 text/html Surgery: Right shoulder [...] evaluation for osteoporosis. Terrell Varma MD [address], [place], [address], [facility] 07/24/2024 12:15:36 5 [...] another 6 weeks. Terrell Varma MD [address], [place], [address], [facility] 09/24/2024 12:45:46 5 text/html Surgery: Right shoulder [...] in 2 months. Terrell Varma MD [address], [place], [address], [facility] 11/03/2024 18:24:29 OBGyn Episode No OBEpisode recorded.
--- NOTE | 2025-03-26 09:11 | HO.ANESPROP2 ---
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 (Acute) Small bowel perforation (Acute) Small bowel volvulus (Acute) DJD (degenerative joint disease) (Acute) Anxiety (Acute) Depression (Acute) Hypothyroidism (Acute) Obesity (Acute) Abdominal pain (Acute) Small bowel obstruction (Acute) Past Medical History Medical History Sleep apnea Iron deficiency Thyroid disease Hypokalemia DJD (degenerative joint disease) Anxiety Depression Family History Family history of problems with anesthesia: No Surgical History Surgical History Hx of shoulder surgery S/P small bowel resection Hx of breast reduction, elective History of knee replacement History of History of gastric bypass History of Problems with Anesthesia: No Social History Social History Household Members: Spouse and Children Housing: House Do you presently have visiting nurse or other home services: No Alcohol intake: never Comment: benavidez catheter and NGT care Patient Tobacco Use Status: Former Tobacco user Use of substances other than those prescribed or required for medical reasons: No Are you DNR?: No Advance Directives: No Advance Directives Information Provided: Yes service: No Meds Allergies Allergy/AdvReac Type Severity Reaction Status Date / Time NSAIDS Allergy Unknown due to Uncoded 03/29/25 09:36 gastric bypass, can't take Home Medications ?Medication ?Instructions ?Recorded ?Confirmed ?Last Taken ?Type albuterol sulfate 90 mcg/actuation 2 puff inhalation Q4-6H PRN dyspnea 04/05/24 03/29/25 Unknown History aerosol inhaler bupropion HCl 200 mg tablet,12 hr 200 mg PO BID 04/05/24 03/29/25 Unknown History sustained-release citalopram 20 mg tablet 20 mg PO DAILY 04/05/24 03/29/25 Unknown History clonazepam 0.5 mg tablet 0.5 mg PO DAILY PRN Anxiety 04/05/24 03/29/25 Unknown History tramadol 50 mg tablet 50 mg PO BEDTIME PRN sleep/pain 04/05/24 03/29/25 Unknown History Assessment and Plan Final Anesthetic Review Family History of Problems with Anesthesia: No History of Problems with Anesthesia: No Documented by User: Lauren Howell MD 03/29/25 09:53 PMFSH Past Medical History Medical History Sleep apnea Iron deficiency Thyroid disease Hypokalemia DJD (degenerative joint disease) Anxiety Depression Surgical History Surgical History Hx of shoulder surgery S/P small bowel resection Hx of breast reduction, elective History of knee replacement History of History of gastric bypass Social History Social History Household Members: Spouse and Children Housing: House Do you presently have visiting nurse or other home services: No Alcohol intake: never Comment: benavidez catheter and NGT care Patient Tobacco Use Status: Former Tobacco user Use of substances other than those prescribed or required for medical reasons: No Are you DNR?: No Advance Directives: No Advance Directives Information Provided: Yes service: No Meds Allergies Allergy/AdvReac Type Severity Reaction Status Date / Time NSAIDS Allergy Unknown due to Uncoded 03/29/25 09:36 gastric bypass, can't take Home Medications ?Medication ?Instructions ?Recorded ?Confirmed ?Last Taken ?Type albuterol sulfate 90 mcg/actuation 2 puff inhalation Q4-6H PRN dyspnea 04/05/24 03/29/25 Unknown History aerosol inhaler bupropion HCl 200 mg tablet,12 hr 200 mg PO BID 04/05/24 03/29/25 Unknown History sustained-release citalopram 20 mg tablet 20 mg PO DAILY 04/05/24 03/29/25 Unknown History clonazepam 0.5 mg tablet 0.5 mg PO DAILY PRN Anxiety 04/05/24 03/29/25 Unknown History tramadol 50 mg tablet 50 mg PO BEDTIME PRN sleep/pain 04/05/24 03/29/25 Unknown History Exam Airway Mallampati Class: II TM Dist: >3cm Neck ROM: Full Loose/Missing/Broken Teeth: No Heart: RRR Lungs: CTA Assessment and Plan Assessment Anesthesia Assessment: Anesthesia Plan Discussed and Chart Reviewed Final Anesthetic Review NPO: Yes ASA Class: II Final Preanesthetic Review: Meds/Allgs Chart Reviewed, Consent Obtained/Reviewed and Anes Risks/Benef Reviewed Patient Risk: Low Procedure Risk: Intermediate Anesthetic Plan Anesthetic Plan: MAC: Disposition: Standard PACU
[2025-03-29] VITALS (7 sets, daily range): BP systolic 92–114; BP diastolic 40–56; PULSE 63–70; RESP 12–16; TEMP 36.6–37; O2SAT 95–100; BMI 29.7
[2025-03-29] MEDS: Lactated Ringers 1,000 ML 80 ML IVCONT (09:47)
--- NOTE | 2025-03-29 10:11 | MHC.SHP ---
Pre-Procedural Eval Section A - 24 Hr Update-Section A only Date of Service: 03/29/25 The patient is an INPATIENT: No The patient has been examined within 24 hours of the surgical procedure. The History & Physical has been completed within 30 days and I have reviewed it.: No Section B - Complete if H&P > 30 days Chief Complaint: Obesity, unspecified Details of Present Illness: Nausea and abdominal pain Relevant Family History (Specify if Yes): No Relevant Social History: None Present Medications: None Medical History: No relevant PMH History of Previous Operations: Relevant previous surgery/procedure and date(s) (laparoscopic gastric bypass, repair of internal hernia and small bowel resection) Allergies: Allergies Allergy/AdvReac Type Severity Reaction Status Date / Time NSAIDS Allergy Unknown due to Uncoded 03/29/25 09:36 gastric bypass, can't take Review of Systems Sugical H&P ROS: Negative: Constitution, Cardiovascular, Respiratory, Neurological, Psychiatric, Hem-Onc, Allergic/Immunologic, Gastrointestinal, Genitourinary, Musculoskeletal, Integumentary, Endocrine and Eyes/Ears/Nose/Throat Exam Surgical H&P Exam: Normal: HEENT, Normal: Heart, Normal: Lungs, Normal: Extremities, Normal: Abdomen, Normal: Skin and Normal: Neurological Plan Diagnosis/Plan: Unchanged (EGD to assess the pouch and gastric bypass anatomy. Risks of bleeding and perforation were discussed with the patient and she is in agreement with the plan.) I have reviewed the history and physical and performed a pertinent physical examination on my patient. No changes have occurred unless specified. Time Spent With Patient Time: Total time managing care of this patient today ____ minutes.
--- NOTE | 2025-03-29 10:21 | P.BOP_ITS ---
Brief Operative Note Date of Service: 03/29/25 Pre-op diagnosis: Nausea and abdominal pain, s/p gastric bypass and subsequent internal hernia repair with small bowel resection Procedure: PROCEDURE DATE: ?03/29/2025 PREOPERATIVE DIAGNOSIS: Nausea and abdominal pain, s/p gastric bypass POSTOPERATIVE DIAGNOSIS: ?Same as above. 1) Normal post bypass endoscopy PROCEDURE: [id number] with biopsies Surgeon: ?Mynor Hannah M.D.. Ph.D. Parking Enforcement Technician: ?None ? Anesthesia: IV sedation Estimated blood loss: ?Minimal FINDINGS AND PROCEDURE: ? OPERATIVE INDICATIONS: ?The patient is a 65 year old female known to me who underwent a laparoscopic gastric bypass elsewhere and subsequently presented to us with an internal hernia and bowel requiring small bowel resection.. The patient now complains of nausea and epigastric pain. Based on this information I recommended an upper endoscopy to evaluate the patient's symptoms.? Risks and complications of the surgery were discussed with the patient in advance particularly the possibility of perforation or bleeding that may require surgical intervention. The patient understood the risks and was in agreement with the plan. ? PROCEDURE: After informed consent was obtained by the patient, the patient was ?transferred to the Operating Room and was placed in the supine position.? After successful induction of IV sedation, a mouth block was placed and the patient was placed in the left lateral decubitus position. An upper endoscopy was performed next, the oropharynx and esophagus appeared within the normal limits. There was no significant hiatal hernia.?The z-line was smooth. Two biopsies were obtained from the distal esophagus 2-3 cm proximal to the GE junction and two biopsies from the GE junction. The small pouch was entered, appeared to be of normal size. There was no gastritis and the gastrojejunostomy was patent. A biopsy was obtained from the gastric pouch. No significant bleeding was noted from any of the biopsy sites. There was no anastomotic ulcer.? At that point the scope was advanced into the proximal small intestine (proximal Cat limb) which appeared to be normal as well. I was able to get up to 60cm from incisors but not beyond. The Cat limb and the pouch were decompressed and the scope was withdrawn from the patient's mouth. The patient was awaken and was transferred in stable condition to the Recovery Room for further care. I was present and performed all steps of the procedure. There were no residents to assist with this case. Mynor Hannah M.D., Ph.D. Surgeon: Tevin Hannah MD Anesthesia: MAC Was an Parking Enforcement Technician used for this Procedure?: No Estimated blood loss (mL): 0 IV fluids (mL): 400 Urine output (mL): 0 (No Murdock to record output) Pathology: other (1) gastric pouch x1, 2) GE junction x2, 3) distal esophagus x2) Condition: stable Disposition: PACU
[2025-03-29] MEDS: Thiamine HCL 100 MG in 0.9 % Sodium Chloride 100 ML 202 MG IV (12:12)
== END 2025-03-29 14:20 | disposition home or self-care (01) ==
PROVIDERS: PCP Internal Medicine; Visit Provider Surgery
PROC: 0DJ08ZZ Inspection of Upper Intestinal Tract, Via Natural or Artificial Opening Endoscopic (ICD-10-PCS; CPT 43235; principal; 2025-03-29 10:40)
DX: R11.0 Nausea (principal); R10.9 Unspecified abdominal pain; Z98.84 Bariatric surgery status; D64.9 Anemia, unspecified; E61.1 Iron deficiency; E07.9 Disorder of thyroid, unspecified; E87.6 Hypokalemia; G47.30 Sleep apnea, unspecified; Z90.49 Acquired absence of other specified parts of digestive tract; Z98.890 Other specified postprocedural states; Z88.6 Allergy status to analgesic agent
CPT/HCPCS: 43239; 88305; 88313; 88342; J1756; J1808; J2003; J2704; J3411

== ENCOUNTER → 2025-03-29 08:56 | Outpatient (BNV) | payer MEDICARE, SELFPAY | PROVIDERS: PCP Internal Medicine; Visit Provider Surgery | DX: R10.84 Generalized abdominal pain (principal); R11.0 Nausea | CPT/HCPCS: 43239 ==

== ENCOUNTER 2025-04-07 13:49 | Outpatient (AMB) | payer MEDICARE, SELFPAY ==
--- NOTE | 2025-04-07 13:57 | MHC.OFFVISWM ---
VS Expanded 04/07/25 14:04 BP 116/56 L Blood Pressure Location Rt brachial Blood Pressure Position Sitting Pulse 84 Pulse Source Pulse Oximeter Temp 97.7 F Temperature Source Temporal Artery Scan Pulse Oximetry 95 Oxygen Delivery Method Room Air Height 5 ft 3 in Weight 166 lb 6.4 oz BMI 29.5 Body Fat % 35.5 Body Fat Mass 59.0 Fat Free Mass 107.2 Visceral Fat Rating 10.0 Body Water % 45.5 Body Water Mass 75.6 Muscle Mass/Score 101.6 Basal Metabolic Rate/Score 1,446 Intake Visit Reasons: (OV) F/U ER Necrosis SM/Intestine Allergies NSAIDS Allergy (Unknown, Uncoded 03/29/25 09:36) due to gastric bypass, can't take Medication List - Last Reconciled 04/07/25 by JONY Perez albuterol sulfate 90 mcg/actuation 2 puffs inhalation Q4-6H PRN bupropion HCl SR 200 mg PO BID citalopram 20 mg PO DAILY clonazepam 0.5 mg PO DAILY PRN iron,carbonyl-vitamin C 65 mg iron- 125 mg (Vitron-C) 1 tab PO DAILY levothyroxine (Synthroid) 150 mcg PO DAILY pantoprazole 40 mg PO DAILY tramadol 50 mg PO BEDTIME PRN HPI Comments Details: The patient is a 65 year old female known to the practice who underwent a laparoscopic gastric bypass elsewhere and subsequently presented to us with an internal hernia and bowel requiring small bowel resection 04/05/2024. She recovered well from this. The patient then began complaining of nausea and epigastric pain earlier this month. She underwent endoscopy on 03/29/2025 which was normal. Her diet was then advanced slowly via text with me. Currently meal plan includes: 9-11am 6oz Ensure Max with 2oz UAM 12-2pm 5oz Ensure Max with 3oz UAM 3pm meal 4ff chicken or fish, 4ff broccoli/cauli 4-6pm 6oz Ensure Max with 2oz UAM 7-9pm 5oz Ensure Max with 3oz UAM PFSH Medical History (Updated 03/29/25 @ 10:47 by Tevin Hannah MD) Sleep apnea Iron deficiency Thyroid disease Hypokalemia DJD (degenerative joint disease) Anxiety Depression Surgical History (Updated 04/07/25 @ 15:00 by JONY Perez) Hx of shoulder surgery S/P small bowel resection Hx of breast reduction, elective History of knee replacement History of History of gastric bypass Social History Household Members: Spouse and Children Housing: House Do you presently have visiting nurse or other home services: No Alcohol intake: never Comment: benavidez catheter and NGT care Patient Tobacco Use Status: Former Tobacco user service: No Physical Exam Vital Signs: Last Vital Signs Temp 97.7 F 04/07/25 14:04 Pulse 84 04/07/25 14:04 BP 116/56 L 04/07/25 14:04 Pulse Ox 95 04/07/25 14:04 Oxygen Delivery Method Room Air 04/07/25 14:04 BMI result Body Mass Index 29.5 Assessment & Plan Assessment & Plan (1) 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: Code(s): K91.89 - Other postprocedural complications and disorders of digestive system; K55.029 - Acute infarction of small intestine, extent unspecified Category: Medical (2) S/P small bowel resection: Code(s): Z90.49 - Acquired absence of other specified parts of digestive tract Category: Surgical (3) History of gastric bypass: Code(s): Z98.84 - Bariatric surgery status Category: Surgical Plan Change to meal plan 9-11am 6oz Ensure Max with 2oz UAM 12-2pm change for Fitcrunch bar or north [place] yogurt 3pm meal 4ff meat, 4ff veg/salad/fruit- gave pt healthy foods list 4-6pm 6oz Ensure Max 2oz UAM 7-9pm 5oz Ensure Max with 3oz UAM Pt will keep me updated with how she is feeling and any recurrence of pain. RTC 3mo for next OV.
[2025-04-07 14:04] VITALS: BP 116/56; PULSE 84; TEMP 36.5; O2SAT 95; BMI 29.5
--- OUTSIDE RECORDS SUMMARY | 2025-04-07 16:54 | XMS_ITS | Clinical Summary ---
Author Organization [facility] Address [address] [place] [address] Phone Care Team Providers Care Desulfurizer Machine Name Role Phone Sohan Swain MD Unavailable [phone] Sohan Swain MD Primary Care Provider Sohan Swain MD Unavailable [phone] Allergies No known active allergies Medications clonazePAM (KLONOPIN) 0.5 MG tablet prn Active multivitamins capsule Take 1 capsule by mouth daily. Active buPROPion (WELLBUTRIN SR) 200 MG SR 12 hr tablet Take 200 mg by mouth 2 (two) times a day (once in the morning and once in the afternoon). 4 Active citalopram (CELEXA) 20 MG tablet Take 20 mg by mouth every morning. 4 Active SYNTHROID 150 mcg tabletIndications:H ypothyroid TAKE 1 TABLET DAILY EXCEPT 2 TABLETS ON SUNDAYS 102 tablet 3 5 Active pantoprazole (PROTONIX) 40 MG tablet Take 1 tablet by mouth every morning. 5 Active ondansetron (ZOFRAN-ODT) 4 MG disintegrating tabletIndications:N ausea Take 1 tablet (4 mg total) by mouth every 8 (eight) hours as needed for nausea. 18 tablet 5 Active Active Problems Problem Noted Date Diagnosed Date [...] Encounters Date Type Department Care Team Description 03/25/2025 Telephone ROX[facility] [address] [place] [address] [place] [address] Sohan Swain MD Prior Authorization needed for CT scan 03/25/2025 Orders Only [address] [place] [address] Unknown, Carolyn, 03/22/2025 3:30 PM EST Office Visit [address] [place] [address] Sohan Swain MD Abdominal pain, epigastric (Primary Dx) 03/22/[address] [place] [address] Sohan Swain MD Request For Order(s) 03/22/2025 Orders Only [address] [place] [address] Unknown, Carolyn, 03/17/2025 Telephone [facility] [place] [facility] [address] [place] [address] Vikas Vega MD Appointment (CPAP Compliance f/u) 02/24/2025 1:59 PM EDT - 02/24/2025 11:59 PM EDT Hospital Encounter [facility] [address] [place] [address] Sohan Swain MD Discharge Disposition: Home or Self Care 02/24/2025 1:15 PM EDT Office Visit [address] [place] [address] Sohan Swain MD Medicare annual wellness visit, initial (Primary Dx); Major depressive disorder, recurrent severe without psychotic features; Acquired hypothyroidism 02/12/2025 Orders Only [address] [place] [address] Sohan Swain MD from Last 3 Months [...] high school, GED, job training, learning the Macanese language, technical skills, or developing parenting skills)? 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 Not on file Not [...] Care Team (Late st Contact Info) Description 06/15/2025 9:15 AM EST Appointment [facility], Bone Density - [facility] [address] [place] [address] Sohan Swain MD [address] [place] [address], [address] [place] [address] [email or web address] Due Date Last Done Comments COLOGUARD 01/23/2004 FIT TEST 01/23/2004 FOBT 01/23/2004 SIGMOIDOSCOPY 01/23/2004 VIRTUAL COLONOSCOPY 01/23/2004 OSTEOPOROSIS SCREENING INITIAL (ONE-TIME) 01/23/2024 COVID-19 VACCINE ( season) 2025 02/14/2022, 05/21/2021, 08/20/2020, Additional history exists DEPRESSION SCREENING 02/17/2026 02/17/2025 TSH LEVEL 02/24/2026 02/24/2025, 12/2023, 02/17/2024, Additional history exists SMOKING Hx and SMOKELESS TOBACCO SCREENING 03/22/2026 03/22/2025 MAMMOGRAM 02/10/2027 02/10/2025, 01/2024, 01/07/2023, Additional history [...] Abdominal pain, epigastric OUTSIDE LAB Routine 03/18/2025 2:08 PM EST OUTSIDE LAB Routine 03/18/2025 1:56 PM EST [...] Maintenance Results * Outside Lab (Non-MGB) (03/18/2025 2:08 PM EST) Only the most recent of3 resultswithin the time period is included. us Unknown Unknown LAB BLOOD BKR ORDERABLES Edit ed Result - Final * TSH with reflex (02/24/2025 2:04 PM EDT) TSH 2.64 0.27 - 4.20 uIU/mL [facility] Blood 02/24/2025 2:04 PM EDT 02/24/2025 2:31 PM EDT Sohan Swain MD LAB BLOOD BKR ORDERABLES Fi nal Result Performing Organization Address City/[facility]/ZIP Co de Phone Number [address] [address] * Hemoglobin A1c (02/24/2025 2:04 PM EDT) HEMOGLOBIN A1C 5.7 4.3 - 5.8 % [facility] Blood 02/24/2025 2:04 PM EDT 02/24/2025 2:31 PM EDT Sohan Swain MD LAB BLOOD BKR ORDERABLES Fi nal Result Performing Organization Address City/[facility] [[email or web address]] Co de Phone Number [address] [address] * (ABNORMAL) Lipid panel (02/24/2025 2:04 PM EDT) HDL 83 mg/dL [facility] Comment: Interpretation <40 mg/dL: Low HDL cholesterol (major risk factor for CHD) Greater than or equal to 60 mg/dL: High HDL cholesterol ( negative risk factor for CHD) HDL - cholesterol is affected by a number of factors, e.g. smoking, excerise, hormones, sex and age. CHOLESTEROL 225 0 - 240 mg/dL [facility] TRIGLYCERIDES 107 30 - 160 mg/dL [facility] LDL 121 50 - 129 mg/dL [facility] Comment: LDL levels in terms of risk for coronary heart disease: <100 mg/dL: Optimal 100-129 mg/dL: Near or above optimal 130-159 mg/dL: Borderline high 160-189 mg/dL: High >190 mg/dL: Very High CARDIAC RISK RATIO 2.7(L) 3.3 - 4.4 [facility] Blood 02/24/2025 2:04 PM EDT 02/24/2025 2:31 PM EDT us Sohan Swain MD LAB BLOOD BKR ORDERABLES Fi nal Result [facility] [address] [place] [address] * HM MAMMOGRAPHY FOR RESULT ENTRY ONLY (02/10/2025 2:58 PM EDT) us Sohan Swain MD HEALTH MAINTENANCE Edited R esult - Final * HM COLONOSCOPY FOR RESULT ENTRY ONLY (12/17/2023 12:09 PM EDT) us Unknown Unknown HEALTH MAINTENANCE Final Resu lt from Last 3 Months or Most Recently Relevant to Health Maintenance Insurance [employer] MEDEX SUPPLEMENT MEDICARE PART A & B [employer] MEDEX SUPPLEMENT MEDICARE PART A & B [employer] MEDEX SUPPLEMENT [email or web address] CROSS MEDEX SUPPLEMENT [email or web address] CROSS MEDEX SUPPLEMENT MEDICARE PART A & B BLUE CROSS MEDEX SUPPLEMENT [employer] MEDEX SUPPLEMENT MEDICARE PART A & B Member Subscriber Plan / Payer (Ef fective 2025-) Name:Sonia Kelly Member ID:[id number] Relation to Subscriber:Self Name:Sonia Kelly Subscriber ID:[id number] Payer ID:[id number] Group ID:Not on file Type:Medicare Address: [facility] [employer] [facility] [address] [place] [phone] [employer] MEDEX SUPPLEMENT MEDICARE PART A & B [email or web address] CROSS MEDEX SUPPLEMENT MEDICARE PART A & B Advance Directives For more information, please contact: [phone] (9AM - 5PM [facility], Saturday-Saturday) Documents on File Type Date Recorded Patient Calibration Specialist Expl anation Healthcare Proxy 05/15/2017 10:26 AM * Full Code (Presumed) (Latest Code Status on File) Date Activated Date Inactivated Comments 05/14/2017 9:49 AM 05/14/2017 7:53 PM Care Teams Desulfurizer Machine Relationship Specialty Start Date End Date Sohan Swain MD [address] [place] [address] PCP - General 04/11/17 Sohan Swain MD [address] [place] [address] Historical LMR Provider 03/03/17 Sohan Swain MD [address] [place] [address] Insurance Assigned Provider 08/17/23 Additional Source Comments The information contained in this document represents components of the legal health record. It is not the complete legal health record.[facility]
--- OUTSIDE RECORDS SUMMARY | 2025-04-07 16:54 | XMS_ITS | Encounter Summary ---
Author Organization [facility] Address [address] [place] [address] [place] [address] Phone Care Team Providers Care Wrist Closer Name Role Phone Sohan Swain MD Unavailable [phone] Sohan Swain MD Primary Care Provider Sohan Swain MD Unavailable [phone] Encounter Details Date Type Department Care Team (Late st Contact Info) Description 03/22/2025 Orders Only [facility] [address] [address] [place] [address] Unknown, Unknown, Social History Tobacco Use Types [...] high school, GED, job training, learning the Liberian language, technical skills, or developing parenting skills)? 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 Not on file Not on file documented as of this encounter Plan of Treatment Upcoming Encounters Date Type Department Care Team (Late st Contact Info) Description 06/15/2025 9:15 AM EST Appointment [facility], [facility] [address] [place] [address] Sohan Swain MD [address] [place] [address] documented as of this encounter Procedures Procedure Name Priority Date/Time Associated Diagnosis Comments OUTSIDE LAB Routine 03/18/2025 1:56 PM EST OUTSIDE LAB Routine 03/18/2025 1:54 PM EST documented in this encounter Results * Outside Lab (Non-MGB) (03/18/2025 1:56 PM EST) us Unknown Unknown LAB BLOOD BKR ORDERABLES Edit ed Result - Final * Outside Lab (Non-MGB) (03/18/2025 1:54 PM EST) us Unknown Unknown LAB BLOOD BKR ORDERABLES Edit ed Result - Final documented in this encounter Visit Diagnoses Not on filedocumented in this encounter Additional Health Concerns Assessment Noted Time A Body Mass Index follow-up plan has been documented for the patient 02/09/2024 12:56 PM EDT PHQ-2 Depression Total Score: 0 02/18/20 25 7:25 PM EDT documented as of this encounter Care Teams Wrist Closer Relationship Specialty Start Date End Date Sohan Swain MD [address] [place] [address] PCP - General 04/11/17 Sohan Swain MD [address] [place] [address], [address] [place] [address] Historical LMR Provider 03/03/17 Sohan Swain MD [address] [place] [address], [address] [place] [address] Insurance Assigned Provider 08/17/23 documented as of this encounter Additional Source Comments The information contained in this document represents components of the legal health record. It is not the complete legal health record.[facility]
--- OUTSIDE RECORDS SUMMARY | 2025-04-07 16:54 | XMS_ITS | Encounter Summary ---
Author Organization [facility] Address [address] [place] [address] Phone Care Team Providers Care Deburrer Name Role Phone Sohan Swain MD Unavailable [phone] Alex Stark MD Unavailable Jessica Dominguez MD Unavailable [phone] Sohan Swain MD Primary Care Provider [phone] Sohan Swain MD Unavailable [phone] Encounter Details Date Type Department Care Team (Late Contact Info) Description 05/14/2017 Procedure Pass OR Admitting Dept - [facility] Department [address] [place] [phone] Social History Tobacco Use Types Packs/Day Years [...] Department Care Team (Late Contact Info) Description 06/15/2025 9:15 AM EST Appointment [facility], [address] [address] Sohan Swain MD [address] [place] [address] documented as of this encounter Visit Diagnoses Not on filedocumented in this encounter Additional Health Concerns Infection Onset Date Last Indicated Resolved Time CoV-Presumed 09/24/2021 09/24/2021 10/15/2021 1:21 AM EDT CoV-Risk 03/30/2022 03/30/2022 04/10/2022 1:31 AM EST documented as of this encounter Care Teams Deburrer Relationship Specialty Start Date End Date Sohan Swain MD [address] [place] [address] PCP - General 04/11/17 Sohan Swain MD [address] [place] [address] Historical LMR Provider 03/03/17 Alex Stark MD [address] [place] [address] Historical LMR Provider 03/03/17 05/20/21 Jessica Dominguez MD [address] [place] [phone] Historical LMR Provider 03/03/17 2 Sohan Swain MD [address] [place] [address] Insurance Assigned Provider 08/17/23 documented as of this encounter Additional Source Comments The information contained in this document represents components of the legal health record. It is not the complete legal health record.[facility]
--- OUTSIDE RECORDS SUMMARY | 2025-04-07 16:54 | XMS_ITS | Encounter Summary ---
Author Organization [facility] Address [address] [place] [address] [place] [address] Phone Care Team Providers Care Customer Development Representative Name Role Phone Sohan Swain MD Unavailable [phone] Sohan Swain MD Primary Care Provider Sohan Swain MD Unavailable [phone] Encounter Details Date Type Department Care Team (Late st Contact Info) Description 03/25/2025 Orders Only [facility] [place] [address] [address] [place] [address] Unknown, Unknown, Social History Tobacco Use Types [...] high school, GED, job training, learning the Venezuelan language, technical skills, or developing parenting skills)? 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 Not on file Not on file documented as of this encounter Plan of Treatment Upcoming Encounters Date Type Department Care Team (Late st Contact Info) Description 06/15/2025 9:15 AM EST Appointment [facility], Bone Density - [facility] [address] [place] [address] Sohan Swain MD [address] [place] [address] documented as of this encounter Procedures Procedure Name Priority Date/Time Associated Diagnosis Comments OUTSIDE LAB Routine 03/18/2025 2:08 PM EST documented in this encounter Results * Outside Lab (Non-MGB) (03/18/2025 2:08 PM EST) us Unknown Unknown LAB BLOOD [...] documented as of this encounter Care Teams Customer Development Representative Relationship Specialty Start Date End Date Sohan Swain MD [address] [place] [address] PCP - General 04/11/17 Sohan Swain MD [address] [place] [address] Historical LMR Provider 03/03/17 Sohan Swain MD [address] [place] [address] Insurance Assigned Provider 08/17/23 documented as of this encounter Additional Source Comments The information contained in this document represents components of the legal health record. It is not the complete legal health record.[facility]
--- OUTSIDE RECORDS SUMMARY | 2025-04-07 16:54 | XMS_ITS | Data Portability ---
Author Organization [facility] Address [address] [place] [address] Care Team Providers Care Shipping Lead Name Role Phone EYAD PALUMBO Primary Care [...] X-rays reviewed in the office today on [facility] P[facility]: Weightbearing AP of both knees, lateral [...] of their questions today in the office. [facility] speech recognition applications engineer manufacturing software was used to create portions of this document. An attempt at proofreading has been made to minimize errors. Please call for corrections. [email or web address] Not available 06/11/2024 14:05:21 Plan of Treatment Reminders Order Date Submit Date Provider Last Modified By Organization Details Last Modified Time Details Appointments None recorded. Lab None recorded. Referral physical therapist referral - continue pt/ HEP 2-4 times/sat- pt/saul bravo discretio n 2024 025 [email or web address] 7 [facility]), [address], [place], [address], 5 17:17:09 physical therapist referral - continue AAROM, AROM, PROM. Start strengthe mitch After 3 months if rom/ mechanics adequate 2024 025 [email or web address] 7 [facility]), [address], [place], [address], 5 16:46:14 Procedures None recorded. Surgeries None [...] contr ast No observ ation record ed. [email or web address] [facility] [address] [place] [address], [place], [address], 05/19/2024 10:56:02 05/19/19 25 05/18/2024 MRI, shoul ashley, w/o contr ast No observ ation record ed. [email or web address] [facility] [address], [place], [address], 05/19/2024 10:56:03 Result Notes None recorded. Problems Name Problem SNOMED Code Status Onset Date Resolution Date Notes Provider Name and Address Organization Details Recorded Time No complaints 658408874 Active Status : 'A'; Not Available [facility] 4 09:22:05 Osteoarthr itis of left knee joint 6274208684682 09 Active 2023 Onur Thayer MD [address], [place], [address] , [facility] 4 07:57:06 Bilateral shoulder joint pain 3532453970057 9104 Active 2023 DORIE lang [facility] 4 13:25:45 Bilateral impingemen t syndrome of shoulders 7100063308406 9103 Active 2023 DORIE lang [facility] 4 13:53:12 Postoperat bijan pain 310301878 Active 2024 Terrell Varma MD [address], [place], [address] , [facility] 5 11:40:01 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 Procedures Surgical History Date Name Laterality Status Provider Name and Address Organization Details Recorded Time 4 Sports Shoulder Bilateral completed Terrell Varma MD [address] [facility] [address], [place], [address], [facility] 12/27/2023 18:13:09 4 Sports Knee 4&1 completed Washington Llanos PA-C [address] [facility] [address], [place], [address], [facility] 10/17/2023 07:35:31 3 Knee Surgery completed [facility] 12/27/2023 13:23:44 Bariatric Surgery completed [facility] 12/27/2023 13:23:44 Other completed [facility] 12/27/2023 13:23:44 Imaging Results None recorded. Procedure [...] Updated DateTime 05/21/2024 159.385 cm 29.8 kg/m2 47917.93 g Chuyita yo [facility] 05/21/2024 07:57:58 Date Recorded Body height Body mass index (BMI) Body weight Provider Name and Address Organization Details Last Updated DateTime 06/11/2024 159.385 cm 29.8 kg/m2 22281.93 g Marybeth Calero [facility] 06/11/2024 13:32:51 Date Recorded Body height Body mass index (BMI) Body weight Provider Name and Address Organization Details Last Updated DateTime 07/24/2024 159.385 cm 29.8 kg/m2 32951.93 g VIVIAN AKBAR [facility] 07/24/2024 10:14:21 Date Recorded Body height Body mass index (BMI) Body weight Provider Name and Address Organization Details Last Updated DateTime 09/24/2024 159.385 cm 29.8 kg/m2 42211.93 g Terrell Varma MD [address] [place] [address] [address], [place], [address], [facility] 09/24/2024 08:35:49 Date Recorded Body height Body mass index (BMI) Body weight Provider Name and Address Organization Details Last Updated DateTime 11/03/2024 159.385 cm 29.8 kg/m2 03200.93 g Chuyita callejasregan [facility] 11/03/2024 08:37:51 Social History Question Answer Notes LastModified by Organizat ion Details LastModified Time Tobacco Smoking Status Former Smoker DORIE SOFIA lang [facility] 12/27/2023 13:23:41 When Did You Quit Smoking? 16+yearssinc elastcigaret te [email or web address] Information not available 12/27/2023 What Is Your Relationship Status? Information not available 10/17/2023 How Many Years Have You Smoked Tobacco? 3 [email or web address] Information not available 12/27/2023 Sex: Unknown Functional Status Question Answer Note LastModified by Organizat ion Details LastModified Time How many times per week do you consume alcohol? Less than 1 time per week [email or web address] Information not available 12/27/2023 Do you use any illicit or recreational drugs? No Information not available 10/17/2023 Do you or have you ever used any other forms of tobacco or nicotine? No Information not available 10/17/2023 What is your level of alcohol consumption? None Information not available 10/17/2023 Do you or have you ever used e-cigarettes or vape? Never used electronic cigarettes [email or web address] Information not available 12/27/2023 Mental Status None recorded. Family History Nothing Reported. Medical History Condition Response Allergies/Hayfever N Coronary Artery Disease N Anxiety/Depression Y Breathing or lung disorders N Emphysema N Nerve Disorders N Thyroid Problems Y COPD N Pacemaker N Anemia N Kidney/Bladder Problems N Vascular Disease N Heart Trouble N Heart Attack (SD) N Gastrointestinal Disease N Cholesterol N Diabetes N Autoimmune disease [...] ICD10 Code Diagnosis IMO Codes Diagnosis Note [id number] Onur Thayer MD [facility] [address] [place] [address] 10/10/2023 08:48:35 11/08/2023 12:59:59 Pain of left knee joint 6286598469 16645 M25.880 [id number] Washington Llanos PA-C [facility] [address] [place] [address] 10/17/2023 09:20:31 11/25/2023 10:52:07 Osteoarthritis of left knee joint 7940525377 24480 M17.12 [id number] Terrell Varma MD [facility] [address] [place] [address] 12/27/2023 13:16:46 01/21/2024 10:21:10 Bilateral shoulder joint pain 8497177352 7269020 M25.511 M25.512 Bilateral impingement syndrome of shoulders 3928640950 8602425 M75.41 M75.42 [id number] Sundar Mead NP [facility] [address] [place] [address] 02/19/2024 13:24:30 03/14/2024 03:58:55 [id number] Onur Thayer MD [facility] [address] [place] [address] 02/19/2024 15:32:27 03/14/2024 03:58:55 [id number] Raul Cota PA-C [facility] [address] [place] [address] 03/10/2024 13:15:18 04/03/2024 09:23:20 History of total knee arthroplasty 2369136501 105 Z96.652 71426091 Pain of le ft knee joint 1106140004 18388 M25.562 [id number] [id number] ELEN Akins [address] [place] [address] 03/26/2024 14:33:19 04/27/2024 14:32:18 Aftercare 281156047 Z51.89 Implantati on of joint prosthesis 39749036 Z47.1 [id number] MD Carolyn [facility] on [facility] [address] [facility] [place] [address] 05/07/2024 09:27:01 05/27/2024 17:02:15 Pain of left shoulder joint 1497512691 8074323 M25.512 038312 Pain of ri ght shoulder joint 8640109828 3006159 M25.511 684048 Bilateral chronic pain of upper limbs 3147105989 5551318 M25.511 M25.512 G89.29 [id number] MD JOSE ARMANDO [facility] [address] [facility] [place] [address] 05/21/2024 07:51:24 06/05/2024 10:48:46 Right rotator cuff syndrome 8884572097 59685 M75.657 0755472 Nontraumat ic complete rupture of rotator cuff of right shoulder 0539212571 653190 M75.121 [id number] [id number] MD [facility] [address] [address] [place] [address] 06/11/2024 13:25:35 06/22/2024 08:36:50 History of left total knee replacement 9218486994 782398 Z96.652 19197016 [id number] MD JOSE ARMANDO [facility] [address] [place] [address] 07/24/2024 10:08:33 08/14/2024 08:00:43 Nontraumatic complete rupture of rotator cuff of right shoulder 5647966917 058152 M75.121 [id number] MD JOSE ARMANDO [facility] [address] [facility] [place] [address] 09/24/2024 08:20:56 10/07/2024 15:19:53 Nontraumatic complete rupture of rotator cuff of right shoulder 0346492689 891382 M75.121 [id number] Terrell Varma MD [facility] Clinical [address] [place] [address] 11/03/2024 08:31:30 11/21/2024 08:11:57 Nontraumatic complete rupture of rotator cuff of right shoulder 1868313892 982676 M75.121 [id number] Health Concerns Section Related Observation LastModified by Organization Detai ls LastModified Time None Recorded Concern Status LastModified by Organization Details LastModified Time None Recorded Advance Directives Directive None Recorded Payers Insurance Date Sequence Insurance Name Policy Number Policy Whitfield Covered Member ID Whitfield Member ID Guarantor Name 11/21/2024 1 BCAMANDA-BRIANNA (PPO) [id number] Sonia Gould Robin [id number] Sonia Kelly Notes Date Note Type [...] the shoulder after surgery. Terrell Varma MD [address] [place] [address] [address], [place], [address], [facility] 05/21/2024 10:32:28 5 text/html Surgery: Right shoulder [...] evaluation for osteoporosis. Terrell Varma MD [address], [place], [address], [facility] 07/24/2024 [...] another 6 weeks. Terrell Varma MD [address], [place], [address], [facility] 09/24/2024 12:45:46 5 text/html Surgery: Right shoulder [...] in 2 months. Terrell Varma MD [address] [facility] [address] [address], [place], [address], [facility] 11/03/2024 18:24:29 OBGyn Episode No OBEpisode recorded.
== END 2025-04-07 15:02 | disposition home or self-care (01) ==
LOC: HO.HBS 13:50
PROVIDERS: PCP Internal Medicine; Visit Provider Physician Assistant Surgical
DX: K91.89 Other postprocedural complications and disorders of digestive system (principal); K55.029 Acute infarction of small intestine, extent unspecified; Z90.49 Acquired absence of other specified parts of digestive tract; Z98.84 Bariatric surgery status
CPT/HCPCS: 99214; G2211

== ENCOUNTER → 2025-04-07 13:49 | Outpatient (BNVA) | payer MEDICARE, SELFPAY | PROVIDERS: PCP Internal Medicine; Visit Provider Physician Assistant Surgical | DX: K55.029 Acute infarction of small intestine, extent unspecified (principal); K91.89 Other postprocedural complications and disorders of digestive system; Z90.49 Acquired absence of other specified parts of digestive tract; Z98.84 Bariatric surgery status; Z87.891 Personal history of nicotine dependence | CPT/HCPCS: 99212 ==